=== PATIENT | male | born 1960 | race Two or more races ===

== ENCOUNTER 2020-04-29 14:30 | Outpatient (REF) | payer MEDICARE, MEDICAID, SELFPAY ==
--- NOTE | 2020-04-29 | MR_ITS ---
EXAMINATION: MR BRAIN WITHOUT CONTRAST CLINICAL INFORMATION: Parkinsonism. COMPARISON: None available. TECHNIQUE: MRI of the brain was obtained using routine sequences without contrast. FINDINGS: No focal restricted diffusion is demonstrated to suggest acute or subacute cerebral ischemia. Chronic encephalomalacia of the lateral right temporal/frontoparietal lobes, superior left temporal lobe, and anterior left frontal lobe. There is a small amount of chronic hemosiderin staining along the right central sulcus. No evidence of acute hemorrhagic products on heme-sensitive imaging. Findings are superimposed on scattered periventricular and deep white matter T2 FLAIR hyperintensities consistent with mild underlying microangiopathy. Ex vacuo dilatation of the right lateral ventricle with rightward midline shift (0.8 cm). Otherwise, proportional prominence of the ventricles and sulcal spaces without evidence of obstructive hydrocephalus. No demonstrated extra-axial collection. The sella turcica is mildly expanded and partially empty. Small lacunar infarcts within the bilateral cerebellar hemispheres. The cerebellar tonsils are normally positioned. Normal arterial and venous vascular flow voids are present. Normal, homogeneous marrow signal. Moderate mucosal thickening of the paranasal sinuses. No signal abnormalities within the mastoids. MR/MR head/brain wo con IMPRESSION: 1. No demonstrated acute intracranial abnormalities. 2. Chronic encephalomalacia of the lateral right temporal/frontoparietal lobes, superior left temporal lobe, and anterior left frontal lobe. This pattern is nonspecific but suggestive of prior traumatic injury. 3. Mild underlying microangiopathy and generalized cerebral volume loss.
--- NOTE | 2020-04-29 14:57 | XR_ITS ---
EXAMINATION: ORBITS, CHEST AND KUB CLINICAL INFORMATION: Pre MRI clearance COMPARISON: None TECHNIQUE: 2 views skull, 1 view chest PA and KUB. FINDINGS: Skull: There is no radiopaque foreign body visualized in the orbits. The paranasal sinuses are well-aerated and clear. No calvarial abnormality seen. CHEST: The lungs are well-expanded and clear of acute process. Heart size and pulmonary vascularity is normal. There is moderate spondylosis dorsal spine. No lytic process. No radiopaque foreign body seen KUB: Scattered stool and gas seen throughout the colon. No radiopaque foreign body seen.. There is no radiopaque calculi. No gross bony abnormality seen. XR/XR pre mri screening IMPRESSION: No radiopaque foreign body or metallic substance seen in the skull, chest or abdomen.
== END 2020-04-29 14:31 | disposition home or self-care (01) ==
LOC: HO.MRI 14:30
PROVIDERS: Visit Provider Psychiatry & Neurology Neurology
DX: G20 Parkinson's disease (principal)
CPT/HCPCS: 70551

== ENCOUNTER 2022-09-22 11:57 | Outpatient (REF) | payer MEDICARE, MEDICAID, SELFPAY ==
[2022-09-22 12:10] LABS: MANUAL DIFF FLAG NO
[2022-09-22 12:18] LABS: Basophils Absolute Auto 0.1 X10*3/uL (0.0-0.2); Basophils Percent Auto 0.9 % (0-2); Eosinophils Absolute Auto 0.4 X10*3/uL (0.0-0.4); Eosinophils Percent Auto 4.4 % (0-4); Hematocrit 38.9 % (42.0-52.0); Hemoglobin 12.3 g/dl (14.0-18.0); Imm Gran Abs Auto 0.31 X10*3/uL (0.00-0.03); Imm Gran Pct Auto 3.3 % (0.0-0.4); Lymphocytes Absolute Auto 2.1 X10*3/uL (1.2-4.9); Lymphocytes Percent Auto 22.9 % (20-40); Mean Corpuscular HGB Conc 31.6 g/dl (31.0-36.0); Mean Corpuscular Hemoglobin 24.9 pg (27.0-33.0); Mean Corpuscular Volume 78.7 fL (80.0-98.0); Monocytes Absolute Auto 0.8 X10*3/uL (0.1-1.2); Neutrophils Absolute Auto 5.6 x10*3/uL (2.0-8.3); Neutrophils Percent Auto 59.5 % (45-73); Platelet Count 369 X10*3/uL (160-400); Red Blood Count 4.94 X10*6/uL (4.60-5.80); Red Cell Distribution Width 15.3 % (11.0-16.0); White Blood Count 9.3 X10*3/uL (4.8-10.8)
[2022-09-22 12:37] LABS: Estimated Average Glucose 148 mg/dL; Hemoglobin A1c % 6.8 %
[2022-09-22 12:38] LABS: Appearance Urine Clear; Color Urine Yellow; Glucose Urine UA Negative (Negative); Leukocyte Esterase Urine Negative (Negative); Nitrite Urine Negative (Negative); PH 7.5 (5.0-9.0); Urine Blood Negative (Negative); Urine Ketones Negative (Negative); Urine Protein Trace mg/dL (Neg-Trace)
[2022-09-22 13:20] LABS: Creatinine Urine 104.33 mg/dL; Microalbum/Creatinine Ratio Ur 49.8 ug/mg cr
[2022-09-22 13:28] LABS: Alanine Aminotransferase 7 U/L (0-40); Albumin Level 4.2 g/dL (3.5-5.0); Alkaline Phosphatase 107 U/L (39-117); Anion Gap 12 (12-20); Aspartate Amino Transferase 21 U/L (5-37); Bilirubin Total 0.4 mg/dL (0.0-1.0); Blood Urea Nitrogen 16 mg/dL (9-16); Calcium 9.9 mg/dL (8.4-10.2); Carbon Dioxide 28 mmol/L (22-29); Chloride 103 mmol/L (96-108); Cholesterol 132 mg/dL; Estimated Glomerular Filt Rate > 60; Glucose Fasting 103 mg/dL (60-99); HDL Cholesterol 48 mg/dL; LDL Cholesterol Calculated 65 mg/dl; Potassium 4.8 mmol/L (3.3-5.1); Sodium 138 mmol/L (135-145); Total Protein 7.9 g/dL (6.5-8.0); Triglycerides 98 mg/dL
[2022-09-22 13:50] LABS: Folate 8.7 ng/mL (> or = 4.0); TSH reflex Free T4 1.81 uIU/mL (0.32-4.0); Vitamin B12 229 pg/mL (200-900); Vitamin D 25-OH Total 34.1 ng/mL (>30)
== END 2022-09-22 11:58 | disposition home or self-care (01) ==
LOC: HO.LAB 11:57
PROVIDERS: PCP Internal Medicine; Visit Provider Internal Medicine
DX: E55.9 Vitamin D deficiency, unspecified (principal); E11.9 Type 2 diabetes mellitus without complications; I10 Essential (primary) hypertension; R30.0 Dysuria; E53.8 Deficiency of other specified B group vitamins; E78.00 Pure hypercholesterolemia, unspecified
CPT/HCPCS: 36415; 80053; 80061; 81003; 82043; 82306; 82607; 82746; 83036; 84443; 85025

== ENCOUNTER 2023-02-14 10:00 | Outpatient (AMB) | payer MEDICARE, MEDICAID, SELFPAY ==
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
[2023-02-14 10:14] VITALS: BP 128/84; PULSE 76; O2SAT 98; BMI 31.5
== END 2023-02-14 10:51 | disposition home or self-care (01) ==
PROVIDERS: PCP Internal Medicine; Visit Provider Internal Medicine
DX: I10 Essential (primary) hypertension (principal); E11.9 Type 2 diabetes mellitus without complications; F25.9 Schizoaffective disorder, unspecified; F10.20 Alcohol dependence, uncomplicated; F17.210 Nicotine dependence, cigarettes, uncomplicated; E78.00 Pure hypercholesterolemia, unspecified; R25.1 Tremor, unspecified; B19.20 Unspecified viral hepatitis C without hepatic coma; K29.70 Gastritis, unspecified, without bleeding; E66.9 Obesity, unspecified; J30.9 Allergic rhinitis, unspecified; R41.89 Other symptoms and signs involving cognitive functions and awareness
CPT/HCPCS: 99214

== ENCOUNTER 2023-03-01 13:39 | Outpatient (AMB) | payer MEDICARE, MEDICAID, SELFPAY ==
[2023-03-01 13:40] VITALS: BP 128/70; PULSE 85; O2SAT 98; BMI 30.7
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
== END 2023-03-01 14:31 | disposition home or self-care (01) ==
PROVIDERS: PCP Internal Medicine; Visit Provider Internal Medicine
DX: E11.9 Type 2 diabetes mellitus without complications (principal)
CPT/HCPCS: 83036; 99213

== ENCOUNTER 2023-06-14 11:48 | Outpatient (REF) | payer MEDICARE, MEDICAID, SELFPAY ==
[2023-06-14 12:08] LABS: MANUAL DIFF FLAG NO
[2023-06-14 12:57] LABS: Basophils Absolute Auto 0.1 X10*3/uL (0.0-0.2); Basophils Percent Auto 0.9 % (0-2); Eosinophils Absolute Auto 0.2 X10*3/uL (0.0-0.4); Eosinophils Percent Auto 2.9 % (0-4); Hematocrit 38.4 % (42.0-52.0); Imm Gran Abs Auto 0.09 X10*3/uL (0.00-0.03); Imm Gran Pct Auto 1.1 % (0.0-0.4); Lymphocytes Absolute Auto 1.7 X10*3/uL (1.2-4.9); Mean Corpuscular HGB Conc 31.3 g/dl (31.0-36.0); Mean Corpuscular Hemoglobin 24.4 pg (27.0-33.0); Mean Platelet Volume 11.6 fL (9.4-12.4); Monocytes Absolute Auto 0.8 X10*3/uL (0.1-1.2); Monocytes Percent Auto 9.8 % (2-11); Neutrophils Percent Auto 63.3 % (45-73); Platelet Count 347 X10*3/uL (160-400); Red Blood Count 4.92 X10*6/uL (4.60-5.80); Red Cell Distribution Width 15.6 % (11.0-16.0); White Blood Count 7.9 X10*3/uL (4.8-10.8)
[2023-06-14 13:04] LABS: Appearance Urine Clear; Color Urine Yellow; Glucose Urine UA Negative (Negative); Leukocyte Esterase Urine Negative (Negative); Nitrite Urine Negative (Negative); Urine Blood Negative (Negative); Urine Ketones Negative (Negative); Urine Protein Negative (Neg-Trace)
[2023-06-14 13:05] LABS: Estimated Average Glucose 148 mg/dL; Hemoglobin A1c % 6.8 % (<6.0)
[2023-06-14 13:37] LABS: Creatinine Urine 59.15 mg/dL; Microalbum/Creatinine Ratio Ur 64.2 ug/mg cr (<30)
[2023-06-14 13:49] LABS: Alanine Aminotransferase 6 U/L (0-40); Albumin Level 4.1 g/dL (3.5-5.0); Alkaline Phosphatase 81 U/L (39-117); Anion Gap 11 (12-20); Aspartate Amino Transferase 18 U/L (5-37); Bilirubin Total 0.3 mg/dL (0.0-1.0); Blood Urea Nitrogen 10 mg/dL (9-16); Calcium 9.8 mg/dL (8.4-10.2); Carbon Dioxide 29 mmol/L (22-29); Chloride 102 mmol/L (96-108); Cholesterol 118 mg/dL (<200); Estimated Glomerular Filt Rate > 60; Glucose Fasting 104 mg/dL (60-99); HDL Cholesterol 46 mg/dL (>40); LDL Cholesterol Calculated 53 mg/dL (<100); Potassium 4.1 mmol/L (3.3-5.1); Sodium 138 mmol/L (135-145); Total Protein 7.9 g/dL (6.5-8.0); Triglycerides 99 mg/dL (<150)
[2023-06-14 13:56] LABS: TSH reflex Free T4 1.52 uIU/mL (0.32-4.0); Vitamin D 25-OH Total 32.2 ng/mL (>30)
[2023-06-16 13:59] LABS: HCV Log PCR <1.18 NOT DETECTED Log IU/mL (NOT DETECTED); HepC Viral Load <15 NOT DETECTED IU/mL (NOT DETECTED)
== END 2023-06-14 11:49 | disposition home or self-care (01) ==
LOC: HO.LAB 11:48
PROVIDERS: PCP Internal Medicine; Visit Provider Internal Medicine
DX: I10 Essential (primary) hypertension (principal); R30.0 Dysuria; E78.00 Pure hypercholesterolemia, unspecified; B19.20 Unspecified viral hepatitis C without hepatic coma; E55.9 Vitamin D deficiency, unspecified; E11.9 Type 2 diabetes mellitus without complications
CPT/HCPCS: 36415; 80053; 80061; 81003; 82043; 82306; 82570; 83036; 84443; 85025; 87522

== ENCOUNTER 2023-06-16 10:51 | Outpatient (AMB) | payer MEDICARE, MEDICAID, SELFPAY ==
[2023-06-16 10:54] VITALS: BP 132/84; PULSE 87; O2SAT 98; BMI 32.3
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
== END 2023-06-16 11:34 | disposition home or self-care (01) ==
PROVIDERS: PCP Internal Medicine; Visit Provider Internal Medicine
DX: E11.9 Type 2 diabetes mellitus without complications (principal); F25.9 Schizoaffective disorder, unspecified; F10.20 Alcohol dependence, uncomplicated; E78.00 Pure hypercholesterolemia, unspecified; I10 Essential (primary) hypertension; R25.1 Tremor, unspecified; B19.20 Unspecified viral hepatitis C without hepatic coma; K29.70 Gastritis, unspecified, without bleeding; J30.9 Allergic rhinitis, unspecified; R41.89 Other symptoms and signs involving cognitive functions and awareness; G47.00 Insomnia, unspecified; Z87.891 Personal history of nicotine dependence
CPT/HCPCS: 99214

== ENCOUNTER 2023-09-27 11:20 | Outpatient (AMB) | payer MEDICARE, MEDICAID, SELFPAY ==
[2023-09-27 11:29] VITALS: BP 138/76; PULSE 102; O2SAT 97; BMI 31.1
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
== END 2023-09-27 11:56 | disposition home or self-care (01) ==
PROVIDERS: PCP Internal Medicine; Visit Provider Internal Medicine
DX: E11.9 Type 2 diabetes mellitus without complications (principal)
CPT/HCPCS: 83036; 99214

== ENCOUNTER → 2024-01-17 23:59 | Outpatient (BNV) | payer MEDICARE, MEDICAID, SELFPAY | PROVIDERS: PCP Internal Medicine; Visit Provider Internal Medicine | DX: E11.9 Type 2 diabetes mellitus without complications (principal); F25.0 Schizoaffective disorder, bipolar type; R25.1 Tremor, unspecified | CPT/HCPCS: G0179 ==

== ENCOUNTER 2024-02-07 10:45 | Outpatient (REF) | payer MEDICARE, MEDICAID, SELFPAY ==
[2024-02-07 13:08] LABS: MANUAL DIFF FLAG NO
[2024-02-07 13:27] LABS: Basophils Absolute Auto 0.1 X10*3/uL (0.0-0.2); Basophils Percent Auto 0.9 % (0-2); Eosinophils Absolute Auto 0.2 X10*3/uL (0.0-0.4); Eosinophils Percent Auto 2.6 % (0-4); Hematocrit 36.7 % (42.0-52.0); Hemoglobin 11.5 g/dl (14.0-18.0); Imm Gran Abs Auto 0.04 X10*3/uL (0.00-0.03); Imm Gran Pct Auto 0.7 % (0.0-0.4); Lymphocytes Absolute Auto 1.3 X10*3/uL (1.2-4.9); Lymphocytes Percent Auto 23.1 % (20-40); Mean Corpuscular HGB Conc 31.3 g/dl (31.0-36.0); Mean Corpuscular Hemoglobin 23.7 pg (27.0-33.0); Mean Corpuscular Volume 75.5 fL (80.0-98.0); Mean Platelet Volume 11.2 fL (9.4-12.4); Monocytes Absolute Auto 0.5 X10*3/uL (0.1-1.2); Monocytes Percent Auto 9.2 % (2-11); Neutrophils Absolute Auto 3.7 x10*3/uL (2.0-8.3); Neutrophils Percent Auto 63.5 % (45-73); Platelet Count 270 X10*3/uL (160-400); Red Blood Count 4.86 X10*6/uL (4.60-5.80); Red Cell Distribution Width 15.9 % (11.0-16.0); White Blood Count 5.8 X10*3/uL (4.8-10.8)
[2024-02-07 13:59] LABS: Estimated Average Glucose 140 mg/dL; Hemoglobin A1c % 6.5 % (<6.0)
[2024-02-07 14:15] LABS: Alanine Aminotransferase 7 U/L (0-40); Albumin Level 4.1 g/dL (3.5-5.0); Alkaline Phosphatase 67 U/L (39-117); Anion Gap 13 (12-20); Aspartate Amino Transferase 18 U/L (5-37); Bilirubin Total 0.4 mg/dL (0.0-1.0); Blood Urea Nitrogen 11 mg/dL (9-16); Calcium 9.7 mg/dL (8.4-10.2); Carbon Dioxide 22 mmol/L (22-29); Chloride 106 mmol/L (96-108); Cholesterol 131 mg/dL (<200); Estimated Glomerular Filt Rate > 60; Glucose Fasting 109 mg/dL (60-99); HDL Cholesterol 52 mg/dL (>40); LDL Cholesterol Calculated 67 mg/dL (<100); Potassium 4.4 mmol/L (3.3-5.1); Sodium 137 mmol/L (135-145); TSH reflex Free T4 1.62 uIU/mL (0.32-4.0); Total Protein 7.9 g/dL (6.5-8.0); Triglycerides 62 mg/dL (<150); Vitamin D 25-OH Total 36.5 ng/mL (>30)
== END 2024-02-07 10:46 | disposition home or self-care (01) ==
LOC: HO.10HDL 10:45
PROVIDERS: Visit Provider Internal Medicine
DX: E78.00 Pure hypercholesterolemia, unspecified (principal); E11.9 Type 2 diabetes mellitus without complications; E55.9 Vitamin D deficiency, unspecified; D64.9 Anemia, unspecified
CPT/HCPCS: 36415; 80053; 80061; 82306; 83036; 84443; 85025

== ENCOUNTER 2024-02-12 10:52 | Outpatient (AMB) | payer MEDICARE, MEDICAID, SELFPAY ==
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
[2024-02-12 10:57] VITALS: BP 138/86; PULSE 105; O2SAT 97; BMI 30.9
== END 2024-02-12 11:47 | disposition home or self-care (01) ==
PROVIDERS: PCP Internal Medicine; Visit Provider Internal Medicine
DX: E11.9 Type 2 diabetes mellitus without complications (principal); G20.A1 Parkinson's disease without dyskinesia, without mention of fluctuations; F10.20 Alcohol dependence, uncomplicated; F25.9 Schizoaffective disorder, unspecified; E78.00 Pure hypercholesterolemia, unspecified; I10 Essential (primary) hypertension; B19.20 Unspecified viral hepatitis C without hepatic coma; K29.70 Gastritis, unspecified, without bleeding; J30.9 Allergic rhinitis, unspecified; R41.89 Other symptoms and signs involving cognitive functions and awareness; R40.0 Somnolence; G47.00 Insomnia, unspecified

== ENCOUNTER → 2024-02-12 10:52 | Outpatient (BNVA) | payer MEDICARE, MEDICAID, SELFPAY | PROVIDERS: PCP Internal Medicine; Visit Provider Internal Medicine | DX: E11.9 Type 2 diabetes mellitus without complications (principal); E78.00 Pure hypercholesterolemia, unspecified; I10 Essential (primary) hypertension; B19.20 Unspecified viral hepatitis C without hepatic coma; K29.70 Gastritis, unspecified, without bleeding; J30.9 Allergic rhinitis, unspecified; G20.A1 Parkinson's disease without dyskinesia, without mention of fluctuations; R41.89 Other symptoms and signs involving cognitive functions and awareness; G47.00 Insomnia, unspecified; F25.9 Schizoaffective disorder, unspecified; E66.9 Obesity, unspecified; F10.20 Alcohol dependence, uncomplicated; F17.200 Nicotine dependence, unspecified, uncomplicated; Z71.6 Tobacco abuse counseling; Z79.899 Other long term (current) drug therapy | CPT/HCPCS: 99212 ==

== ENCOUNTER 2024-06-13 10:34 | Outpatient (AMB) | payer MEDICARE, MEDICAID, SELFPAY ==
[2024-06-13 11:11] VITALS: BP 128/76; PULSE 80; O2SAT 97; BMI 29.2
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
== END 2024-06-13 11:50 | disposition home or self-care (01) ==
PROVIDERS: PCP Internal Medicine; Visit Provider Internal Medicine
DX: E11.9 Type 2 diabetes mellitus without complications (principal); E78.00 Pure hypercholesterolemia, unspecified; I10 Essential (primary) hypertension; G20.A1 Parkinson's disease without dyskinesia, without mention of fluctuations; B19.20 Unspecified viral hepatitis C without hepatic coma; K29.70 Gastritis, unspecified, without bleeding; J30.9 Allergic rhinitis, unspecified; R41.89 Other symptoms and signs involving cognitive functions and awareness; G47.00 Insomnia, unspecified; F25.9 Schizoaffective disorder, unspecified; F10.20 Alcohol dependence, uncomplicated; F17.200 Nicotine dependence, unspecified, uncomplicated; E66.9 Obesity, unspecified; Z13.9 Encounter for screening, unspecified

== ENCOUNTER → 2024-06-13 10:34 | Outpatient (BNVA) | payer MEDICARE, MEDICAID, SELFPAY | PROVIDERS: PCP Internal Medicine; Visit Provider Internal Medicine | DX: E11.9 Type 2 diabetes mellitus without complications (principal); E78.00 Pure hypercholesterolemia, unspecified; I10 Essential (primary) hypertension; G20.A1 Parkinson's disease without dyskinesia, without mention of fluctuations; B19.20 Unspecified viral hepatitis C without hepatic coma; K29.70 Gastritis, unspecified, without bleeding; J30.9 Allergic rhinitis, unspecified; R41.9 Unspecified symptoms and signs involving cognitive functions and awareness; G47.00 Insomnia, unspecified; F25.9 Schizoaffective disorder, unspecified; F10.20 Alcohol dependence, uncomplicated; E66.9 Obesity, unspecified; F17.200 Nicotine dependence, unspecified, uncomplicated | CPT/HCPCS: 83036; 96127; 99212 ==

== ENCOUNTER 2025-01-16 12:45 | Outpatient (AMB) | payer MEDICARE, MEDICAID, SELFPAY ==
--- OUTSIDE RECORDS SUMMARY | 2025-01-15 23:59 | XMS_ITS | Continuity of Care Document ---
Author Organization [facility] Address [address] [facility], [address], [address] [place] [id number]- Care Team Providers Care Workforce Planner Name Role Phone Seb BOWERS, Jemal Primary Care Physician [id number] Date(s): 11/07/24 - 01/15/25 [facility] [address], [address] [place] [id number] Attending Physician: Douglas Otto MD Admitting Physician: Douglas Otto MD Encounter Type: Pre-OutPatient One Time Allergies, Adverse Reactions, Alerts No Known Allergies Medications amLODIPine 10 mg oral tablet 10 mg, By Mouth, Daily, Refills 0, Maintenance, 07/31/24 3:40:00 PM EDT, Partial fill upon patient request if the prescription is for a schedule II opioid drug. Start Date: 07/31/24 Status: Ordered Medication Dispense Status: Completed Total Allowed Fills: 1 Fills Dispensed: 0 Banophen 50 mg oral capsule 1 capsule = 50 mg, By Mouth, Daily, PRN allergies Start Date: 07/26/24 Status: Ordered Medication Dispense Status: Completed Total Allowed Fills: 1 Fills Dispensed: 0 benztropine 1 mg oral tablet 2 mg, By Mouth, 2 times a day, Refills 0, Maintenance, 07/31/24 3:39:00 PM EDT, Partial fill upon patient request if the prescription is for a schedule II opioid drug. Start Date: 07/31/24 Status: Ordered Medication Dispense Status: Completed Total Allowed Fills: 1 Fills Dispensed: 0 Calcium Carb 600mg Calcium Carb 600mg, 1, tablet, By Mouth, 2 times a day Start Date: 07/26/24 Status: Ordered Medication Dispense Status: Completed Total Allowed Fills: 1 Fills Dispensed: 0 carbidopa-levodopa 25 mg-100 mg oral tablet 1 tablet, By Mouth, 3 times a day, # 270 tablet, 0 Refills, Maintenance, 07/26/24 1:55:00 AM EST, Tablet, Partial fill upon patient request if the prescription is for a schedule II opioid drug. Start Date: 07/26/24 Status: Ordered Medication Dispense Status: Completed Quantity: 270.0 Unit: tablet Total Allowed Fills: 1 Fills Dispensed: 0 D3 50 mcg (2000 intl units) oral capsule 1 capsule = 50 mcg, By Mouth, Daily Start Date: 07/26/24 Status: Ordered Medication Dispense Status: Completed Total Allowed Fills: 1 Fills Dispensed: 0 famotidine 40 mg oral tablet 1 tablet = 40 mg, By Mouth, 2 times a day, # 60 tablet, 0 Refills, Maintenance, 07/26/24 1:55:00 AM EST, Tablet, Partial fill upon patient request if the prescription is for a schedule II opioid drug. Start Date: 07/26/24 Status: Ordered Medication Dispense Status: Completed Quantity: 60.0 Unit: tablet Total Allowed Fills: 1 Fills Dispensed: 0 losartan 50 mg oral tablet 50 mg, By Mouth, Daily, Refills 0, Maintenance, 07/31/24 3:40:00 PM EDT, Partial fill upon patient request if the prescription is for a schedule II opioid drug. Start Date: 07/31/24 Status: Ordered Medication Dispense Status: Completed Total Allowed Fills: 1 Fills Dispensed: 0 metFORMIN 1000 mg oral tablet 1 tablet = 1,000 mg, By Mouth, Daily, # 180 tablet, 0 Refills, Maintenance, 07/26/24 1:56:00 AM EST, Tablet, Partial fill upon patient request if the prescription is for a schedule II opioid drug. Start Date: 07/26/24 Status: Ordered Medication Dispense Status: Completed Quantity: 180.0 Unit: tablet Total Allowed Fills: 1 Fills Dispensed: 0 omeprazole 20 mg oral enteric coated capsule 1 capsule = 20 mg, By Mouth, Daily, # 30 capsule, 0 Refills, Maintenance, 07/26/24 1:55:00 AM EST, ECCapsule, Partial fill upon patient request if the prescription is for a schedule II opioid drug. Start Date: 07/26/24 Status: Ordered Medication Dispense Status: Completed Quantity: 30.0 Unit: capsule Total Allowed Fills: 1 Fills Dispensed: 0 pravastatin 40 mg oral tablet 1 tablet = 40 mg, By Mouth, Daily, # 30 tablet, 0 Refills, Maintenance, 07/26/24 1:55:00 AM EST, Tablet, Partial fill upon patient request if the prescription is for a schedule II opioid drug. Start Date: 07/26/24 Status: Ordered Medication Dispense Status: Completed Quantity: 30.0 Unit: tablet Total Allowed Fills: 1 Fills Dispensed: 0 propranolol 10 mg oral tablet 10 mg, 1, tablet, By Mouth, 2 times a day, # 180 tablet, Refills 0, Maintenance, 07/26/24 1:55:00 AM EST, Partial fill upon patient request if the prescription is for a schedule II opioid drug. Start Date: 07/26/24 Status: Ordered Medication Dispense Status: Completed Quantity: 180.0 Unit: tablet Total Allowed Fills: 1 Fills Dispensed: 0 propranolol 20 mg oral tablet 20 mg, 1, tablet, By Mouth, 2 times a day, # 180 tablet, Refills 0, Tot. Refills 0, Maintenance, 11/11/24 3:17:00 PM EDT, Route to Pharmacy Electronically, [facility], Partial fill upon patient request if the prescription is for a schedule II opioid drug., 167, cm, 08/01/24 11:46:00 EDT, Height, 74.3, kg, 07/26/24 11:25:00 EST, Dry Weight Start Date: 11/11/24 Status: Ordered Medication Dispense Status: Completed Quantity: 180.0 Unit: tablet Total Allowed Fills: 1 Fills Dispensed: 0 risperiDONE 0.5 mg oral tablet 1 mg, 2, tablet, By Mouth, Daily, # 60 tablet, Refills 0, Tot. Refills 0, Maintenance, 11/11/24 3:16:00 PM EDT, Route to Pharmacy Electronically, [facility], Partial fill upon patient request if the prescription is for a schedule II opioid drug., 167, cm, 08/01/24 11:46:00 EDT, Height, 74.3, kg, 07/26/24 11:25:00 EST, Dry Weight Start Date: 11/11/24 Stop Date: 12/11/24 Status: Ordered Medication Dispense Status: Completed Quantity: 60.0 Unit: tablet Total Allowed Fills: 1 Fills Dispensed: 0 risperiDONE 1 mg oral tablet 1.5 mg, By Mouth, Daily at bedtime, Refills 0, Maintenance, 07/31/24 3:40:00 PM EDT, Partial fill upon patient request if the prescription is for a schedule II opioid drug. Start Date: 07/31/24 Status: Ordered Medication Dispense Status: Completed Total Allowed Fills: 1 Fills Dispensed: 0 Vitamin C 1000 mg oral tablet 1 tablet = 1,000 mg, By Mouth, Daily Start Date: 07/26/24 Status: Ordered Medication Dispense Status: Completed Total Allowed Fills: 1 Fills Dispensed: 0 Patient Care team information Care Team Personnel Name: Sundar Scanlon RN Position: S RN Member Role: Primary Care Nurse Name: Cristian Camarena RN Position: S RN Member Role: Primary Care Nurse Name: Jemal Grigsby MD Position: S Outreach Member Role: PCP Address: [address] [place] [address] Telecom: Name: Olayinka Oconnor RN Position: S RN Member Role: Primary Care Nurse Name: Tish Ivy RN Position: S RN Member Role: Primary Care Nurse Name: Erna Wells RN Position: S RN Member Role: Primary Care Nurse Care Team Related Persons Name: JD BOWERS Name: JAKI BENITEZ Name: JENNYFER LEE Insurance Providers Guarantor name: MOISES BOWERS Health Plan Information #: 1 Payer: MEDICARE B Payer Identifier: ANEGLIQUE Member Number: [id number] Group Number: ANGELIQUE Subscriber Identifier: [id number] Relationship to Subscriber: self Coverage Type: NA Coverage Verification Date: NA Telecom: NA Address: Health Plan Information #: 2 Payer: [employer] Payer Identifier: ANGELIQUE Member Number: [id number] Group Number: NA Subscriber Identifier: [id number] Relationship to Subscriber: self Coverage Type: MEDICAID Coverage Verification Date: NA Telecom: ANGELIQUE Address: NA
--- OUTSIDE RECORDS SUMMARY | 2025-01-15 23:59 | XMS_ITS | Continuity of Care Document ---
Author Organization [facility] Address [address] [facility], [address] d Floor, [address] [place] [id number] Care Team Providers Care Marine Scientist Name Role Phone Seb BOWERS, Jemal Primary Care Physician [id number] Date(s): 12/16/24 - 01/15/25 [facility] [address], [address] [place] [id number] Attending Physician: Musa Felipe Admitting Physician: Musa Felipe Referring Physician: Musa Felipe Encounter Type: Triage Allergies, Adverse Reactions, Alerts No Known Allergies [...] 3:17:00 PM EDT, Route to Pharmacy Electronically, [facility], Partial fill upon patient request if the [...] 3:16:00 PM EDT, Route to Pharmacy Electronically, [facility], Partial fill upon patient request if the [...] Position: S Outreach Member Role: PCP Address: [address] [place] [address] Telecom: Name: Olayinka Oconnor RN Position: S [...] #: 1 Payer: MEDICARE B Payer Identifier: ANGELIQUE Member Number: [id number] Group Number: [id number] Subscriber Identifier: ANGELIQUE Relationship to Subscriber: self Coverage Type: NA Coverage Verification Date: NA Telecom: NA Address: Health Plan Information #: 2 Payer[facility] [employer] Payer Identifier: ANGELIQUE Member Number: [id number] Group Number: [id number] Subscriber Identifier: NA Relationship to Subscriber: self Coverage Type: MEDICAID Coverage Verification Date: NA Telecom: NA Address: NA
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
[2025-01-16 12:50] VITALS: BP 136/90; PULSE 81; TEMP 36.3; O2SAT 99; BMI 28.5
--- OUTSIDE RECORDS SUMMARY | 2025-01-16 13:22 | XMS_ITS | Encounter Summary ---
Author Organization [facility] Address [address] [place] [address] Care Team Providers Care Sericulturist Name Role Phone Yassine Rodriguez MD Primary Care Provider [phone] Encounter Details Date Type Department Care Team (Late st Contact Info) Description 08/22/2024 Lab Requisition [facility] - Main Lab [address] [facility] [place] [address] Jemal Grigsby MD [address] [place] [phone] Metabolic encephalopathy; Rhabdomyolysis; Unspecified convulsions (CMS/HCC V24, CMS/HCC V28) Social History Tobacco Use Types Packs/Day Years Used Date Smoking Tobacco: Never Assessed Sex and Gender Information Value Date Recorded Sex Assigned at Not on file Legal Sex Male 4:29 PM EST Gender Identity Not on file Sexual Orientation Not on file documented as of this encounter Plan of Treatment Not on file documented as of this encounter Procedures Procedure Name Priority Date/Time Associated Diagnosis Comments COMPLETE BLOOD COUNT Routine 08/23/2024 8:09 AM EDT Metabolic encephalopathy Rhabdomyolysis Unspecified convulsions (CMS/HCC) C-REACTIVE PROTEIN Routine 08/23/2024 8: 09 AM EDT Metabolic encephalopathy Rhabdomyolysis Unspecified convulsions (CMS/HCC) COMPREHENSIVE METABOLIC PANEL Routine 08/23/2024 8:09 AM EDT Metabolic encephalopathy Rhabdomyolysis Unspecified convulsions (CMS/HCC) documented in this encounter Results * C-reactive protein (08/23/2024 8:09 AM EDT) [facility] C-Reactive Protein <0.29 <=0.50 mg/dL LAB CHEMISTRY METHOD 08/23/2024 11:59 AM [facility] Blood Venous blood specimen / Unknown Venipuncture / Unknown 08/23/2024 8:09 AM EDT 08/23/2024 10:41 AM EDT us Jemal Grigsby MD LAB BLOOD ORDERABLES Final Resul t [facility] [address] [place] [address], * (ABNORMAL) Comprehensive metabolic panel (08/23/2024 8:09 AM EDT) [facility] Sodium 136 133 - 145 mmol/L LAB CHEMISTRY METHOD 08/23/2024 11:56 AM [facility] Potassium 4.3 3.5 - 5.5 mmol/L LAB CHEMISTRY METHOD 08/23/2024 11:56 AM [facility] Chloride 101 96 - 110 mmol/L LAB CHEMISTRY METHOD 08/23/2024 11:56 AM [facility] CO2 26 21 - 32 mmol/L LAB CHEMISTRY METHOD 08/23/2024 11:56 AM [facility] Anion Gap 9 3 - 11 LAB CHEMISTRY METHOD 08/23/2024 11:56 AM [facility] Glucose 112(H) 70 - 100 mg/dL LAB CHEMISTRY METHOD 08/23/2024 11:56 AM [facility] BUN 10 5 - 25 mg/dL LAB CHEMISTRY METHOD 08/23/2024 11:56 AM [facility] Creatinine 0.82 0.70 - 1.30 mg/dL LAB CHEMISTRY METHOD 08/23/2024 11:56 AM [facility] eGFR 97 >=60 mL/min/1. 73m2 LAB CHEMISTRY METHOD 08/23/2024 11:56 AM [facility] Comment:Calculation based on the Chronic Kidney Disease Epidemiology Collaboration (CKD-EPI) equation refit without adjustment for race. BUN/Creatinine Ratio 12.2 LAB CHEMISTRY METHOD 08/23/2024 11:56 AM [facility] Calcium 9.7 8.5 - 10.5 mg/dL LAB CHEMISTRY METHOD 08/23/2024 11:56 AM [facility] AST (SGOT) 14 10 - 42 unit/L LAB CHEMISTRY METHOD 08/23/2024 11:56 AM [facility] ALT (SGPT) 22 10 - 60 unit/L LAB CHEMISTRY METHOD 08/23/2024 11:56 AM [facility] Alkaline Phosphatase 96 42 - 121 unit/L LAB CHEMISTRY METHOD 08/23/2024 11:56 AM [facility] Total Protein 7.8 6.0 - 8.0 g/dL LAB CHEMISTRY METHOD 08/23/2024 11:56 AM [facility] Albumin 3.7 3.2 - 5.0 g/dL LAB CHEMISTRY METHOD 08/23/2024 11:56 AM [facility] Total Bilirubin 0.3 0.0 - 1.4 mg/dL LAB CHEMISTRY METHOD 08/23/2024 11:56 AM [facility] Blood Venous blood specimen / Unknown Venipuncture / Unknown 08/23/2024 8:09 AM EDT 08/23/2024 10:41 AM EDT us Jemal Grigsby MD LAB BLOOD ORDERABLES Final Resul t [facility] [address] [place] [address], * (ABNORMAL) Complete blood count (08/23/2024 8:09 AM EDT) [facility] WBC 6.9 4.8 - 10.8 K/mcL LAB HEMETOLOGY METHOD 08/23/2024 11:25 AM [facility] RBC 5.00 4.50 - 5.50 M/mcL LAB HEMETOLOGY METHOD 08/23/2024 11:25 AM [facility] Hemoglobin 12.8(L) 13.5 - 17.5 g/dL LAB HEMETOLOGY METHOD 08/23/2024 11:25 AM [facility] Hematocrit 40.7(L) 42.0 - 54.0 % LAB HEMETOLOGY METHOD 08/23/2024 11:25 AM [facility] MCV 82.1 79.0 - 98.0 FL LAB HEMETOLOGY METHOD 08/23/2024 11:25 AM [facility] MCH 25.8(L) 27.0 - 32.0 pcg LAB HEMETOLOGY METHOD 08/23/2024 11:25 AM [facility] MCHC 31.4(L) 32.0 - 37.0 g/dL LAB HEMETOLOGY METHOD 08/23/2024 11:25 AM [facility] RDW 15.0 11.0 - 15.0 % LAB HEMETOLOGY METHOD 08/23/2024 11:25 AM [facility] Platelets 326 130 - 400 K/mcL LAB HEMETOLOGY METHOD 08/23/2024 11:25 AM [facility] MPV 10.7 7.0 - 11.0 FL LAB HEMETOLOGY METHOD 08/23/2024 11:25 AM [facility] NRBC 0.0 <1.0 % LAB HEMETOLOGY METHOD 08/23/2024 11:25 AM [facility] NRBC Absolute 0.00 <0.10 K/mcL LAB HEMETOLOGY METHOD 08/23/2024 11:25 AM EDT [facility] Blood Venous blood specimen / Unknown Venipuncture / Unknown 08/23/2024 8:09 AM EDT 08/23/2024 10:39 AM EDT us Jemal Grigsby MD LAB BLOOD ORDERABLES Final Resul t [facility] [address] [place] [address], documented in this encounter Visit Diagnoses Diagnosis Metabolic encephalopathy Rhabdomyolysis Unspecified convulsions (CMS/HCC V24, CMS/HCC V28) documented in this encounter Care Teams Sericulturist Relationship Specialty Start Date End Date Yassine Rodriguez MD [address] [place] [address] Dr [address] [place], [place] PCP - General 02/16/24 documented as of this encounter
--- OUTSIDE RECORDS SUMMARY | 2025-01-16 13:22 | XMS_ITS | Encounter Summary ---
Author Organization [facility] Address [address] [place] [address] Care Team Providers Care Hose Seamer Name Role Phone Yassine Rodriguez MD Primary Care Provider Encounter Details Date Type Department Care Team (Late st Contact Info) Description 08/13/2024 Lab Requisition [facility] - Main Lab [address] [place] [address] Jemal Grigsby MD [address] [place] [phone] Type 2 diabetes mellitus without complications (CMS/HCC V24, CMS/HCC V28) Social History Tobacco [...] Associated Diagnosis Comments COMPLETE BLOOD COUNT Routine 08/14/2024 7:32 AM EDT Type 2 diabetes mellitus without complications C-REACTIVE PROTEIN Routine 08/14/2024 7: 32 AM EDT Type 2 diabetes mellitus without complications BASIC METABOLIC PANEL Routine 08/14/2024 7:32 AM EDT Type 2 diabetes mellitus without complications documented in this encounter Results * (ABNORMAL) C-reactive protein (08/14/2024 7:32 AM EDT) C-Reactive Protein 1.25(H) <=0.50 mg/dL LAB CHEMISTRY METHOD 08/14/2024 11:56 AM [facility] Blood Venous blood specimen / Unknown Venipuncture / Unknown 08/14/2024 7:32 AM EDT 08/14/2024 10:39 AM EDT us Jemal Grigsby MD LAB BLOOD ORDERABLES Final Resul t [facility] [address] [place] [address], [place] [phone] * Basic metabolic panel (08/14/2024 7:32 AM EDT) [facility] Sodium 134 133 - 145 mmol/L LAB CHEMISTRY METHOD 08/14/2024 11:56 AM [facility] Potassium 4.4 3.5 - 5.5 mmol/L LAB CHEMISTRY METHOD 08/14/2024 11:56 AM [facility] Chloride 102 96 - 110 mmol/L LAB CHEMISTRY METHOD 08/14/2024 11:56 AM [facility] CO2 28 21 - 32 mmol/L LAB CHEMISTRY METHOD 08/14/2024 11:56 AM [facility] Anion Gap 4 3 - 11 LAB CHEMISTRY METHOD 08/14/2024 11:56 AM [facility] Glucose 79 70 - 100 mg/dL LAB CHEMISTRY METHOD 08/14/2024 11:56 AM [facility] BUN 11 5 - 25 mg/dL LAB CHEMISTRY METHOD 08/14/2024 11:56 AM [facility] Creatinine 0.90 0.70 - 1.30 mg/dL LAB CHEMISTRY METHOD 08/14/2024 11:56 AM [facility] eGFR 95 >=60 mL/min/1. 73m2 LAB CHEMISTRY METHOD 08/14/2024 11:56 AM EDT [facility] Comment:Calculation based on the Chronic Kidney Disease Epidemiology Collaboration (CKD-EPI) equation refit without adjustment for race. BUN/Creatinine Ratio 12.2 LAB CHEMISTRY METHOD 08/14/2024 11:56 AM EDT [facility] Calcium 9.3 8.5 - 10.5 mg/dL LAB CHEMISTRY METHOD 08/14/2024 11:56 AM T [facility] Blood Venous blood specimen / Unknown Venipuncture / Unknown 08/14/2024 7:32 AM EDT 08/14/2024 10:39 AM EDT us Jemal Grigsby MD LAB BLOOD ORDERABLES Final Resul t [facility] [address] [place] [address], * (ABNORMAL) Complete blood count (08/14/2024 7:32 AM EDT) WBC 6.1 4.8 - 10.8 K/mcL LAB HEMETOLOGY METHOD 08/14/2024 10:58 AM [facility] RBC 4.70 4.50 - 5.50 M/mcL LAB HEMETOLOGY METHOD 08/14/2024 10:58 AM [facility] Hemoglobin 12.1(L) 13.5 - 17.5 g/dL LAB HEMETOLOGY METHOD 08/14/2024 10:58 AM T [facility] Hematocrit 38.9(L) 42.0 - 54.0 % LAB HEMETOLOGY METHOD 08/14/2024 10:58 AM T [facility] MCV 83.7 79.0 - 98.0 FL LAB HEMETOLOGY METHOD 08/14/2024 10:58 AM [facility] MCH 26.0(L) 27.0 - 32.0 pcg LAB HEMETOLOGY METHOD 08/14/2024 10:58 AM EDT [facility] MCHC 31.1(L) 32.0 - 37.0 g/dL LAB HEMETOLOGY METHOD 08/14/2024 10:58 AM EDT [facility] RDW 15.4(H) 11.0 - 15.0 % LAB HEMETOLOGY METHOD 08/14/2024 10:58 AM EDT [facility] Platelets 399 130 - 400 K/mcL LAB HEMETOLOGY METHOD 08/14/2024 10:58 AM EDT [facility] MPV 11.5(H) 7.0 - 11.0 FL LAB HEMETOLOGY METHOD 08/14/2024 10:58 AM EDT [facility] NRBC 0.0 <1.0 % LAB HEMETOLOGY METHOD 08/14/2024 10:58 AM EDT [facility] NRBC Absolute 0.00 <0.10 K/mcL LAB HEMETOLOGY METHOD 08/14/2024 10:58 AM EDT [facility] Blood Venous blood specimen / Unknown Venipuncture / Unknown 08/14/2024 7:32 AM EDT 08/14/2024 10:39 AM EDT us Jemal Grigsby MD LAB BLOOD ORDERABLES Final Resul t [facility] [address] [place] [address], documented in this encounter Visit Diagnoses Diagnosis Type 2 diabetes mellitus without complications (CMS/HCC V24, CMS/HCC V28) documented in this encounter Care Teams Hose Seamer Relationship Specialty Start Date End Date Yassine Rodriguez MD [address] [place] [address] [address] [place] PCP - General 02/16/24 documented as of this encounter
--- OUTSIDE RECORDS SUMMARY | 2025-01-16 13:22 | XMS_ITS | Encounter Summary ---
Author Organization [facility] Address [address] [place] [address] Care Team Providers Care Academic Guidance Specialist Name Role Phone Yassine Rodriguez MD Primary Care Provider Encounter Details Date Type Department Care Team (Late st Contact Info) Description 09/19/2024 Lab Requisition [facility] - Main Lab [address] [facility] [place] [address] Jemal Grigsby MD [address] [place] [phone] Metabolic encephalopathy; Rhabdomyolysis; Unspecified convulsions (CMS/HCC V24, CMS/HCC V28); Chronic viral hepatitis C (CMS/HCC V24, CMS/HCC V28); Dysarthria and anarthria; Type 2 diabetes mellitus without complications (CMS/HCC [...] Associated Diagnosis Comments COMPLETE BLOOD COUNT Routine 09/20/2024 7:32 AM EDT Metabolic encephalopathy Rhabdomyolysis Unspecified convulsions (CMS/HCC V24, CMS/HCC V28) Chronic viral hepatitis C (CMS/HCC V24, CMS/HCC V28) Dysarthria and anarthria Type 2 diabetes mellitus without complications (CMS/HCC V24, CMS/HCC V28) C-REACTIVE PROTEIN Routine 09/20/2024 7: 32 AM EDT Metabolic encephalopathy Rhabdomyolysis Unspecified convulsions (CMS/HCC V24, CMS/HCC V28) Chronic viral hepatitis C (CMS/HCC V24, CMS/HCC V28) Dysarthria and anarthria Type 2 diabetes mellitus without complications (CMS/HCC V24, CMS/HCC V28) CREATINE KINASE Routine 09/20/2024 7:32 AM EDT Metabolic encephalopathy Rhabdomyolysis Unspecified convulsions (CMS/HCC V24, CMS/HCC V28) Chronic viral hepatitis C (CMS/HCC V24, CMS/HCC V28) Dysarthria and anarthria Type 2 diabetes mellitus without complications (CMS/HCC V24, CMS/HCC V28) COMPREHENSIVE METABOLIC PANEL Routine 09/20/2024 7:32 AM EDT Metabolic encephalopathy Rhabdomyolysis Unspecified convulsions (CMS/HCC V24, CMS/HCC V28) Chronic viral hepatitis C (CMS/HCC V24, CMS/HCC V28) Dysarthria and anarthria Type 2 diabetes mellitus without complications (CMS/HCC V24, CMS/HCC V28) documented in this encounter Results * Creatine kinase (09/20/2024 7:32 AM EDT) Total CK 188 22 - 269 unit/L LAB CHEMISTRY METHOD 09/20/2024 2:00 PM EDT [facility] Comment:Results verified by repeat testing Blood Venous blood specimen / Unknown 09/20/2024 7:32 AM EDT 09/20/2024 11:10 AM EDT us Jemal Grigsby MD LAB BLOOD ORDERABLES Final Resul t [facility] [address] [place] [address], [place] [phone] * (ABNORMAL) C-reactive protein (09/20/2024 7:32 AM EDT) C-Reactive Protein 14.80(H) <=0.50 mg/dL LAB CHEMISTRY METHOD 09/20/2024 2:00 PM EDT [facility] Comment:Results verified by repeat testing Blood Venous blood specimen / Unknown 09/20/2024 7:32 AM EDT 09/20/2024 11:10 AM EDT us Jemal Grigsby MD LAB BLOOD ORDERABLES Final Resul t [facility] [address] [place] [address], [place] [phone] * (ABNORMAL) Comprehensive metabolic panel (09/20/2024 7:32 AM EDT) [facility] Sodium 131(L) 133 - 145 mmol/L LAB CHEMISTRY METHOD 09/20/2024 1:24 PM [facility] Potassium 4.1 3.5 - 5.5 mmol/L LAB CHEMISTRY METHOD 09/20/2024 1:24 PM [facility] Chloride 96 96 - 110 mmol/L LAB CHEMISTRY METHOD 09/20/2024 1:24 PM [facility] CO2 23 21 - 32 mmol/L LAB CHEMISTRY METHOD 09/20/2024 1:24 PM [facility] Anion Gap 12(H) 3 - 11 LAB CHEMISTRY METHOD 09/20/2024 1:24 PM [facility] Glucose 86 70 - 100 mg/dL LAB CHEMISTRY METHOD 09/20/2024 1:24 PM [facility] BUN 13 5 - 25 mg/dL LAB CHEMISTRY METHOD 09/20/2024 1:24 PM [facility] Creatinine 0.89 0.70 - 1.30 mg/dL LAB CHEMISTRY METHOD 09/20/2024 1:24 PM [facility] eGFR 95 >=60 mL/min/1. 73m2 LAB CHEMISTRY METHOD 09/20/2024 1:24 PM EDT [facility] Comment:Calculation based on the Chronic Kidney Disease Epidemiology Collaboration (CKD-EPI) equation refit without adjustment for race. BUN/Creatinine Ratio 14.6 LAB CHEMISTRY METHOD 09/20/2024 1:24 PM EDT [facility] Calcium 9.0 8.5 - 10.5 mg/dL LAB CHEMISTRY METHOD 09/20/2024 1:24 PM [facility] AST (SGOT) 15 10 - 42 unit/L LAB CHEMISTRY METHOD 09/20/2024 1:24 PM [facility] ALT (SGPT) 12 10 - 60 unit/L LAB CHEMISTRY METHOD 09/20/2024 1:24 PM [facility] Alkaline Phosphatase 71 42 - 121 unit/L LAB CHEMISTRY METHOD 09/20/2024 1:24 PM [facility] Total Protein 7.4 6.0 - 8.0 g/dL LAB CHEMISTRY METHOD 09/20/2024 1:24 PM [facility] Albumin 3.5 3.2 - 5.0 g/dL LAB CHEMISTRY METHOD 09/20/2024 1:24 PM [facility] Total Bilirubin 0.6 0.0 - 1.4 mg/dL LAB CHEMISTRY METHOD 09/20/2024 1:24 PM [facility] Blood Venous blood specimen / Unknown 09/20/2024 7:32 AM EDT 09/20/2024 11:10 AM EDT us Jemal Grigsby MD LAB BLOOD ORDERABLES Final Resul t [facility] [address] [place] [address], [place] [phone] * (ABNORMAL) Complete blood count (09/20/2024 7:32 AM EDT) WBC 11.5(H) 4.8 - 10.8 K/[facility] LAB HEMETOLOGY METHOD 09/20/2024 11:31 AM [facility] RBC 4.70 4.50 - 5.50 M/[facility] LAB HEMETOLOGY METHOD 09/20/2024 11:31 AM [facility] Hemoglobin 12.1(L) 13.5 - 17.5 g/dL LAB HEMETOLOGY METHOD 09/20/2024 11:31 AM [facility] Hematocrit 38.1(L) 42.0 - 54.0 % LAB HEMETOLOGY METHOD 09/20/2024 11:31 AM [facility] MCV 81.2 79.0 - 98.0 FL LAB HEMETOLOGY METHOD 09/20/2024 11:31 AM [facility] MCH 25.8(L) 27.0 - 32.0 pcg LAB HEMETOLOGY METHOD 09/20/2024 11:31 AM [facility] MCHC 31.8(L) 32.0 - 37.0 g/dL LAB HEMETOLOGY METHOD 09/20/2024 11:31 AM [facility] RDW 15.1(H) 11.0 - 15.0 % LAB HEMETOLOGY METHOD 09/20/2024 11:31 AM [facility] Platelets 275 130 - 400 K/[facility] LAB HEMETOLOGY METHOD 09/20/2024 11:31 AM [facility] MPV 11.2(H) 7.0 - 11.0 FL LAB HEMETOLOGY METHOD 09/20/2024 11:31 AM [facility] NRBC 0.0 <1.0 % LAB HEMETOLOGY METHOD 09/20/2024 11:31 AM [facility] NRBC Absolute 0.00 <0.10 K/[facility] LAB HEMETOLOGY METHOD 09/20/2024 11:31 AM EDT [facility] Blood Venous blood specimen / Unknown 09/20/2024 7:32 AM EDT 09/20/2024 11:10 AM EDT us Jemal Grigsby MD LAB BLOOD ORDERABLES Final Resul t [facility] [address] [place] [address], documented in this encounter Visit Diagnoses Diagnosis Metabolic encephalopathy Rhabdomyolysis Unspecified convulsions (CMS/HCC V24, CMS/HCC V28) Chronic viral hepatitis C (CMS/HCC V24, [facility]/HCC V28) Chronic hepatitis C without mention of hepatic coma Dysarthria and anarthria Type 2 diabetes mellitus without complications (CMS/HCC V24, [facility]/HCC V28) documented in this encounter Care Teams Academic Guidance Specialist Relationship Specialty Start Date End Date Yassine Rodriguez MD [address] [place] [address] Dr [address] [place] PCP - General 02/16/24 documented as of this encounter
--- OUTSIDE RECORDS SUMMARY | 2025-01-16 13:22 | XMS_ITS | Encounter Summary ---
Author Organization [facility] Address [address] [place] [address] Care Team Providers Care Title Manager Name Role Phone Yassine Rodriguez MD Primary Care Provider Encounter Details Date Type Department Care Team (Late st Contact Info) Description 09/05/2024 Lab Requisition [facility] - Main Lab [address] [facility] [place] [address] Jemal Grigsby MD [address] [place] [phone] Metabolic encephalopathy; Rhabdomyolysis; Unspecified convulsions (CMS/HCC [...] Associated Diagnosis Comments COMPLETE BLOOD COUNT Routine 09/06/2024 7:19 AM EDT Metabolic encephalopathy Rhabdomyolysis Unspecified convulsions (CMS/HCC V24, CMS/HCC V28) C-REACTIVE PROTEIN Routine 09/06/2024 7: 19 AM EDT Metabolic encephalopathy Rhabdomyolysis Unspecified convulsions (CMS/HCC V24, CMS/HCC V28) CREATINE KINASE Routine 09/06/2024 7:19 AM EDT Metabolic encephalopathy Rhabdomyolysis Unspecified convulsions (CMS/HCC V24, CMS/HCC V28) COMPREHENSIVE METABOLIC PANEL Routine 09/06/2024 7:19 AM EDT Metabolic encephalopathy Rhabdomyolysis Unspecified convulsions (CMS/HCC V24, CMS/HCC V28) documented in this encounter Results * Creatine kinase (09/06/2024 7:19 AM EDT) Total CK 61 22 - 269 unit/L LAB CHEMISTRY METHOD 09/06/2024 11:05 AM EDT [facility] Blood Venous blood specimen / Unknown Venipuncture / Unknown 09/06/2024 7:19 AM EDT 09/06/2024 9:08 AM EDT Jemal Grigsby MD LAB BLOOD ORDERABLES Final Resul t Performing Organization Address [facility]/ZIP Co de Phone Number [facility] [address] [place] [address], * C-reactive protein (09/06/2024 7:19 AM EDT) Pathologist [facility] C-Reactive Protein <0.29 <=0.50 mg/dL LAB CHEMISTRY METHOD 09/06/2024 10:51 AM EDT [facility] Blood Venous blood specimen / Unknown Venipuncture / Unknown 09/06/2024 7:19 AM EDT 09/06/2024 9:08 AM EDT Jemal Grigsby MD LAB BLOOD ORDERABLES Final Resul t Performing Organization Address City/[facility]/ZIP Co de Phone Number [facility] [address] [place] [address], * Comprehensive metabolic panel (09/06/2024 7:19 AM EDT) Pathologist [facility] Sodium 139 133 - 145 mmol/L LAB CHEMISTRY METHOD 09/06/2024 11:06 AM EDT [facility] Potassium 4.2 3.5 - 5.5 mmol/L LAB CHEMISTRY METHOD 09/06/2024 11:06 AM [facility] Chloride 103 96 - 110 mmol/L LAB CHEMISTRY METHOD 09/06/2024 11:06 AM [facility] CO2 27 21 - 32 mmol/L LAB CHEMISTRY METHOD 09/06/2024 11:06 AM [facility] Anion Gap 9 3 - 11 LAB CHEMISTRY METHOD 09/06/2024 11:06 AM [facility] Glucose 99 70 - 100 mg/dL LAB CHEMISTRY METHOD 09/06/2024 11:06 AM [facility] BUN 13 5 - 25 mg/dL LAB CHEMISTRY METHOD 09/06/2024 11:06 AM [facility] Creatinine 0.84 0.70 - 1.30 mg/dL LAB CHEMISTRY METHOD 09/06/2024 11:06 AM [facility] eGFR 97 >=60 mL/min/1. 73m2 LAB CHEMISTRY METHOD 09/06/2024 11:06 AM [facility] Comment:Calculation based on the Chronic Kidney Disease Epidemiology Collaboration (CKD-EPI) equation refit without adjustment for race. BUN/Creatinine Ratio 15.5 LAB CHEMISTRY METHOD 09/06/2024 11:06 AM [facility] Calcium 10.1 8.5 - 10.5 mg/dL LAB CHEMISTRY METHOD 09/06/2024 11:06 AM [facility] AST (SGOT) 17 10 - 42 unit/L LAB CHEMISTRY METHOD 09/06/2024 11:06 AM [facility] ALT (SGPT) 18 10 - 60 unit/L LAB CHEMISTRY METHOD 09/06/2024 11:06 AM [facility] Alkaline Phosphatase 85 42 - 121 unit/L LAB CHEMISTRY METHOD 09/06/2024 11:06 AM [facility] Total Protein 8.0 6.0 - 8.0 g/dL LAB CHEMISTRY METHOD 09/06/2024 11:06 AM [facility] Albumin 3.9 3.2 - 5.0 g/dL LAB CHEMISTRY METHOD 09/06/2024 11:06 AM [facility] Total Bilirubin 0.5 0.0 - 1.4 mg/dL LAB CHEMISTRY METHOD 09/06/2024 11:06 AM [facility] Blood Venous blood specimen / Unknown Venipuncture / Unknown 09/06/2024 7:19 AM EDT 09/06/2024 9:08 AM EDT us Jemal Grigsby MD LAB BLOOD ORDERABLES Final Resul t [facility] [address] [place] [address], * (ABNORMAL) Complete blood count (09/06/2024 7:19 AM EDT) WBC 8.0 4.8 - 10.8 K/mcL LAB HEMETOLOGY METHOD 09/06/2024 10:10 AM [facility] RBC 5.20 4.50 - 5.50 M/mcL LAB HEMETOLOGY METHOD 09/06/2024 10:10 AM [facility] Hemoglobin 13.4(L) 13.5 - 17.5 g/dL LAB HEMETOLOGY METHOD 09/06/2024 10:10 AM [facility] Hematocrit 43.4 42.0 - 54.0 % LAB HEMETOLOGY METHOD 09/06/2024 10:10 AM [facility] MCV 83.3 79.0 - 98.0 FL LAB HEMETOLOGY METHOD 09/06/2024 10:10 AM [facility] MCH 25.7(L) 27.0 - 32.0 pcg LAB HEMETOLOGY METHOD 09/06/2024 10:10 AM EDT [facility] MCHC 30.9(L) 32.0 - 37.0 g/dL LAB HEMETOLOGY METHOD 09/06/2024 10:10 AM EDT [facility] RDW 14.9 11.0 - 15.0 % LAB HEMETOLOGY METHOD 09/06/2024 10:10 AM EDT [facility] Platelets 334 130 - 400 K/mcL LAB HEMETOLOGY METHOD 09/06/2024 10:10 AM EDT [facility] MPV 11.3(H) 7.0 - 11.0 FL LAB HEMETOLOGY METHOD 09/06/2024 10:10 AM EDT [facility] NRBC 0.0 <1.0 % LAB HEMETOLOGY METHOD 09/06/2024 10:10 AM EDT [facility] NRBC Absolute 0.00 <0.10 K/mcL LAB HEMETOLOGY METHOD 09/06/2024 10:10 AM EDT [facility] Blood Venous blood specimen / Unknown Venipuncture / Unknown 09/06/2024 7:19 AM EDT 09/06/2024 9:08 AM EDT us Jemal Grigsby MD LAB BLOOD ORDERABLES Final Resul t [facility] [address] [place] [address], documented in this encounter Visit Diagnoses Diagnosis Metabolic encephalopathy Rhabdomyolysis Unspecified convulsions (CMS/HCC V24, CMS/HCC V28) documented in this encounter Care Teams Title Manager Relationship Specialty Start Date End Date Yassine Rodriguez MD [address] [place] [address] Dr Ramos Beba Deisy PA PCP - General 02/16/24 documented as of this encounter
--- OUTSIDE RECORDS SUMMARY | 2025-01-16 13:23 | XMS_ITS | Encounter Summary ---
Author Organization [facility] Address [address] [place] [address] Care Team Providers Care Accounting Professor Name Role Phone Yassine Rodriguez MD Primary Care Provider Encounter Details Date Type Department Care Team (Late st Contact Info) Description 09/12/2024 Lab Requisition [facility] - Main Lab 299 [facility] [place] [address] Jemal Grigsby MD [address] [place] [phone] Metabolic encephalopathy; Rhabdomyolysis; Unspecified convulsions (CMS/HCC [...] Associated Diagnosis Comments COMPLETE BLOOD COUNT Routine 09/13/2024 7:36 AM EDT Metabolic encephalopathy Rhabdomyolysis Unspecified convulsions (CMS/HCC V24, CMS/HCC V28) C-REACTIVE PROTEIN Routine 09/13/2024 7: 36 AM EDT Metabolic encephalopathy Rhabdomyolysis Unspecified convulsions (CMS/HCC V24, CMS/HCC V28) CREATINE KINASE Routine 09/13/2024 7:36 AM EDT Metabolic encephalopathy Rhabdomyolysis Unspecified convulsions (CMS/HCC V24, CMS/HCC V28) COMPREHENSIVE METABOLIC PANEL Routine 09/13/2024 7:36 AM EDT Metabolic encephalopathy Rhabdomyolysis Unspecified convulsions (CMS/HCC V24, CMS/HCC V28) documented in this encounter Results * Creatine kinase (09/13/2024 7:36 AM EDT) Total CK 62 22 - 269 unit/L LAB CHEMISTRY METHOD 09/13/2024 9:56 AM EDT [facility] Blood Venous blood specimen / Unknown Venipuncture / Unknown 09/13/2024 7:36 AM EDT 09/13/2024 8:50 AM EDT Jemal Grigsby MD LAB BLOOD ORDERABLES Final Resul t Performing Organization Address [facility]/ZIP Co de Phone Number [facility] [address] [place] [address], * C-reactive protein (09/13/2024 7:36 AM EDT) Pathologist [facility] C-Reactive Protein <0.29 <=0.50 mg/dL LAB CHEMISTRY METHOD 09/13/2024 9:56 AM EDT [facility] Blood Venous blood specimen / Unknown Venipuncture / Unknown 09/13/2024 7:36 AM EDT 09/13/2024 8:50 AM EDT Jemal Grigsby MD LAB BLOOD ORDERABLES Final Resul t Performing Organization Address City/[facility]/ZIP Co de Phone Number [facility] [address] [place] [address], * (ABNORMAL) Comprehensive metabolic panel (09/13/2024 7:36 AM EDT) Sodium 139 133 - 145 mmol/L LAB CHEMISTRY METHOD 09/13/2024 11:33 AM EDT [facility] Potassium 4.3 3.5 - 5.5 mmol/L LAB CHEMISTRY METHOD 09/13/2024 11:33 AM [facility] Chloride 105 96 - 110 mmol/L LAB CHEMISTRY METHOD 09/13/2024 11:33 AM [facility] CO2 28 21 - 32 mmol/L LAB CHEMISTRY METHOD 09/13/2024 11:33 AM [facility] Anion Gap 6 3 - 11 LAB CHEMISTRY METHOD 09/13/2024 11:33 AM [facility] Glucose 110(H) 70 - 100 mg/dL LAB CHEMISTRY METHOD 09/13/2024 11:33 AM [facility] BUN 16 5 - 25 mg/dL LAB CHEMISTRY METHOD 09/13/2024 11:33 AM [facility] Creatinine 0.82 0.70 - 1.30 mg/dL LAB CHEMISTRY METHOD 09/13/2024 11:33 AM [facility] eGFR 97 >=60 mL/min/1. 73m2 LAB CHEMISTRY METHOD 09/13/2024 11:33 AM [facility] Comment:Calculation based on the Chronic Kidney Disease Epidemiology Collaboration (CKD-EPI) equation refit without adjustment for race. BUN/Creatinine Ratio 19.5 LAB CHEMISTRY METHOD 09/13/2024 11:33 AM [facility] Calcium 9.5 8.5 - 10.5 mg/dL LAB CHEMISTRY METHOD 09/13/2024 11:33 AM [facility] AST (SGOT) 15 10 - 42 unit/L LAB CHEMISTRY METHOD 09/13/2024 11:33 AM [facility] ALT (SGPT) 16 10 - 60 unit/L LAB CHEMISTRY METHOD 09/13/2024 11:33 AM [facility] Alkaline Phosphatase 93 42 - 121 unit/L LAB CHEMISTRY METHOD 09/13/2024 11:33 AM [facility] Total Protein 7.8 6.0 - 8.0 g/dL LAB CHEMISTRY METHOD 09/13/2024 11:33 AM EDT [facility] Albumin 3.8 3.2 - 5.0 g/dL LAB CHEMISTRY METHOD 09/13/2024 11:33 AM EDT [facility] Total Bilirubin 0.4 0.0 - 1.4 mg/dL LAB CHEMISTRY METHOD 09/13/2024 11:33 AM EDT [facility] Blood Venous blood specimen / Unknown Venipuncture / Unknown 09/13/2024 7:36 AM EDT 09/13/2024 8:50 AM EDT us Jemal Grigsby MD LAB BLOOD ORDERABLES Final Resul t [facility] [address] [place] [address], * (ABNORMAL) Complete blood count (09/13/2024 7:36 AM EDT) WBC 8.4 4.8 - 10.8 K/mcL LAB HEMETOLOGY METHOD 09/13/2024 9:22 AM [facility] RBC 5.10 4.50 - 5.50 M/mcL LAB HEMETOLOGY METHOD 09/13/2024 9:22 AM [facility] Hemoglobin 13.0(L) 13.5 - 17.5 g/dL LAB HEMETOLOGY METHOD 09/13/2024 9:22 AM [facility] Hematocrit 41.0(L) 42.0 - 54.0 % LAB HEMETOLOGY METHOD 09/13/2024 9:22 AM [facility] MCV 80.6 79.0 - 98.0 FL LAB HEMETOLOGY METHOD 09/13/2024 9:22 AM [facility] MCH 25.5(L) 27.0 - 32.0 pcg LAB HEMETOLOGY METHOD 09/13/2024 9:22 AM EDT [facility] MCHC 31.7(L) 32.0 - 37.0 g/dL LAB HEMETOLOGY METHOD 09/13/2024 9:22 AM EDT [facility] RDW 14.8 11.0 - 15.0 % LAB HEMETOLOGY METHOD 09/13/2024 9:22 AM EDT [facility] Platelets 331 130 - 400 K/mcL LAB HEMETOLOGY METHOD 09/13/2024 9:22 AM EDT [facility] MPV 11.3(H) 7.0 - 11.0 FL LAB HEMETOLOGY METHOD 09/13/2024 9:22 AM EDT [facility] NRBC 0.0 <1.0 % LAB HEMETOLOGY METHOD 09/13/2024 9:22 AM EDT [facility] NRBC Absolute 0.00 <0.10 K/mcL LAB HEMETOLOGY METHOD 09/13/2024 9:22 AM EDT [facility] Blood Venous blood specimen / Unknown Venipuncture / Unknown 09/13/2024 7:36 AM EDT 09/13/2024 8:50 AM EDT us Jemal Grigsby MD LAB BLOOD ORDERABLES Final Resul t [facility] [address] [place] [address], documented in this encounter Visit Diagnoses Diagnosis Metabolic encephalopathy Rhabdomyolysis Unspecified convulsions (CMS/HCC V24, CMS/HCC V28) documented in this encounter Care Teams Accounting Professor Relationship Specialty Start Date End Date Yassine Rodriguez MD [address] [place] [address] [place] [address] PCP - General 02/16/24 documented as of this encounter
--- OUTSIDE RECORDS SUMMARY | 2025-01-16 13:23 | XMS_ITS | Encounter Summary ---
Author Organization [facility] Address [address] [place] [address] Care Team Providers Care Service Inspector Name Role Phone Yassine Rodriguez MD Primary Care Provider Encounter Details Date Type Department Care Team (Late st Contact Info) Description 08/15/2024 Lab Requisition [facility] - Main Lab 299 [facility] [place] [address] Jemal Grigsby MD [address] [place] [phone] Metabolic encephalopathy; Rhabdomyolysis; Unspecified convulsions (CMS/HCC [...] Associated Diagnosis Comments COMPLETE BLOOD COUNT Routine 08/16/2024 8:37 AM EDT Metabolic encephalopathy Rhabdomyolysis Unspecified convulsions (CMS/HCC) C-REACTIVE PROTEIN Routine 08/16/2024 8: 37 AM EDT Metabolic encephalopathy Rhabdomyolysis Unspecified convulsions (CMS/HCC) COMPREHENSIVE METABOLIC PANEL Routine 08/16/2024 8:37 AM EDT Metabolic encephalopathy Rhabdomyolysis Unspecified convulsions (CMS/HCC) documented in this encounter Results * (ABNORMAL) C-reactive protein (08/16/2024 8:37 AM EDT) [facility] C-Reactive Protein 0.60(H) <=0.50 mg/dL LAB CHEMISTRY METHOD 08/16/2024 12:16 PM [facility] Blood Venous blood specimen / Unknown Venipuncture / Unknown 08/16/2024 8:37 AM EDT 08/16/2024 10:22 AM EDT us Jemal Grigsby MD LAB BLOOD ORDERABLES Final Resul t [facility] [address] [place] [address], [place] [phone] * (ABNORMAL) Comprehensive metabolic panel (08/16/2024 8:37 AM EDT) [facility] Sodium 135 133 - 145 mmol/L LAB CHEMISTRY METHOD 08/16/2024 12:16 PM [facility] Potassium 4.4 3.5 - 5.5 mmol/L LAB CHEMISTRY METHOD 08/16/2024 12:16 PM [facility] Chloride 102 96 - 110 mmol/L LAB CHEMISTRY METHOD 08/16/2024 12:16 PM [facility] CO2 28 21 - 32 mmol/L LAB CHEMISTRY METHOD 08/16/2024 12:16 PM [facility] Anion Gap 5 3 - 11 LAB CHEMISTRY METHOD 08/16/2024 12:16 PM [facility] Glucose 121(H) 70 - 100 mg/dL LAB CHEMISTRY METHOD 08/16/2024 12:16 PM [facility] BUN 7 5 - 25 mg/dL LAB CHEMISTRY METHOD 08/16/2024 12:16 PM [facility] Creatinine 0.89 0.70 - 1.30 mg/dL LAB CHEMISTRY METHOD 08/16/2024 12:16 PM [facility] eGFR 95 >=60 mL/min/1. 73m2 LAB CHEMISTRY METHOD 08/16/2024 12:16 PM T [facility] Comment:Calculation based on the Chronic Kidney Disease Epidemiology Collaboration (CKD-EPI) equation refit without adjustment for race. BUN/Creatinine Ratio 7.9 LAB CHEMISTRY METHOD 08/16/2024 12:16 PM T [facility] Calcium 9.1 8.5 - 10.5 mg/dL LAB CHEMISTRY METHOD 08/16/2024 12:16 PM T [facility] AST (SGOT) 11 10 - 42 unit/L LAB CHEMISTRY METHOD 08/16/2024 12:16 PM [facility] ALT (SGPT) 22 10 - 60 unit/L LAB CHEMISTRY METHOD 08/16/2024 12:16 PM [facility] Alkaline Phosphatase 84 42 - 121 unit/L LAB CHEMISTRY METHOD 08/16/2024 12:16 PM [facility] Total Protein 7.0 6.0 - 8.0 g/dL LAB CHEMISTRY METHOD 08/16/2024 12:16 PM [facility] Albumin 3.3 3.2 - 5.0 g/dL LAB CHEMISTRY METHOD 08/16/2024 12:16 PM [facility] Total Bilirubin 0.2 0.0 - 1.4 mg/dL LAB CHEMISTRY METHOD 08/16/2024 12:16 PM [facility] Blood Venous blood specimen / Unknown Venipuncture / Unknown 08/16/2024 8:37 AM EDT 08/16/2024 10:22 AM EDT us Jemal Grigsby MD LAB BLOOD ORDERABLES Final Resul t [facility] [address] [place] [address], * (ABNORMAL) Complete blood count (08/16/2024 8:37 AM EDT) WBC 5.8 4.8 - 10.8 K/mcL LAB HEMETOLOGY METHOD 08/16/2024 11:14 AM [facility] RBC 4.50 4.50 - 5.50 M/mcL LAB HEMETOLOGY METHOD 08/16/2024 11:14 AM [facility] Hemoglobin 11.7(L) 13.5 - 17.5 g/dL LAB HEMETOLOGY METHOD 08/16/2024 11:14 AM [facility] Hematocrit 37.9(L) 42.0 - 54.0 % LAB HEMETOLOGY METHOD 08/16/2024 11:14 AM [facility] MCV 83.7 79.0 - 98.0 FL LAB HEMETOLOGY METHOD 08/16/2024 11:14 AM [facility] MCH 25.8(L) 27.0 - 32.0 pcg LAB HEMETOLOGY METHOD 08/16/2024 11:14 AM [facility] MCHC 30.9(L) 32.0 - 37.0 g/dL LAB HEMETOLOGY METHOD 08/16/2024 11:14 AM [facility] RDW 15.1(H) 11.0 - 15.0 % LAB HEMETOLOGY METHOD 08/16/2024 11:14 AM [facility] Platelets 364 130 - 400 K/mcL LAB HEMETOLOGY METHOD 08/16/2024 11:14 AM [facility] MPV 11.4(H) 7.0 - 11.0 FL LAB HEMETOLOGY METHOD 08/16/2024 11:14 AM [facility] NRBC 0.0 <1.0 % LAB HEMETOLOGY METHOD 08/16/2024 11:14 AM [facility] NRBC Absolute 0.00 <0.10 [facility] LAB HEMETOLOGY METHOD 08/16/2024 11:14 AM EDT [facility] Blood Venous blood specimen / Unknown Venipuncture / Unknown 08/16/2024 8:37 AM EDT 08/16/2024 10:22 AM EDT us Jemal Grigsby MD LAB BLOOD ORDERABLES Final Resul t [facility] [address] [place] [address], documented in this encounter Visit Diagnoses Diagnosis Metabolic encephalopathy Rhabdomyolysis Unspecified convulsions (CMS/HCC V24, CMS/HCC V28) documented in this encounter Care Teams Service Inspector Relationship Specialty Start Date End Date Yassine Rodriguez MD [address] [place] [address] Dr [address] [place] PCP - General 02/16/24 documented as of this encounter
--- OUTSIDE RECORDS SUMMARY | 2025-01-16 13:23 | XMS_ITS | Encounter Summary ---
Author Organization [facility] Address [address] [place] [address] Care Team Providers Care Patternmaker Pressure Cast Name Role Phone Yassine Rodriguez MD Primary Care Provider Encounter Details Date Type Department Care Team (Late st Contact Info) Description 08/29/[address] [facility] - Main Lab [address] [place] [address] Jemal Grigsby MD [address] [place] [phone] Essential (primary) hypertension Social History Tobacco Use Types Packs/Day Years [...] Associated Diagnosis Comments COMPLETE BLOOD COUNT Routine 08/29/2024 5:55 AM EDT Essential (primary) hypertension CREATINE KINASE Routine 08/29/2024 5:55 AM EDT Essential (primary) hypertension COMPREHENSIVE METABOLIC PANEL Routine 08/29/2024 5:55 AM EDT Essential (primary) hypertension documented in this encounter Results * Creatine kinase (08/29/2024 5:55 AM EDT) Total CK 69 22 - 269 unit/L LAB CHEMISTRY METHOD 08/29/2024 11:58 AM [facility] Blood Venous blood specimen / Unknown Venipuncture / Unknown 08/29/2024 5:55 AM EDT 08/29/2024 10:39 AM EDT us Jemal Grigsby MD LAB BLOOD ORDERABLES Final Resul t [facility] [address] [place] [address], [place] [phone] * (ABNORMAL) Comprehensive metabolic panel (08/29/2024 5:55 AM EDT) Sodium 136 133 - 145 mmol/L LAB CHEMISTRY METHOD 08/29/2024 11:58 AM [facility] Potassium 4.7 3.5 - 5.5 mmol/L LAB CHEMISTRY METHOD 08/29/2024 11:58 AM [facility] Chloride 101 96 - 110 mmol/L LAB CHEMISTRY METHOD 08/29/2024 11:58 AM [facility] CO2 28 21 - 32 mmol/L LAB CHEMISTRY METHOD 08/29/2024 11:58 AM [facility] Anion Gap 7 3 - 11 LAB CHEMISTRY METHOD 08/29/2024 11:58 AM [facility] Glucose 73 70 - 100 mg/dL LAB CHEMISTRY METHOD 08/29/2024 11:58 AM [facility] BUN 11 5 - 25 mg/dL LAB CHEMISTRY METHOD 08/29/2024 11:58 AM [facility] Creatinine 0.75 0.70 - 1.30 mg/dL LAB CHEMISTRY METHOD 08/29/2024 11:58 AM [facility] eGFR 100 >=60 mL/min/1. 73m2 LAB CHEMISTRY METHOD 08/29/2024 11:58 AM [facility] Comment:Calculation based on the Chronic Kidney Disease Epidemiology Collaboration (CKD-EPI) equation refit without adjustment for race. BUN/Creatinine Ratio 14.7 LAB CHEMISTRY METHOD 08/29/2024 11:58 AM [facility] Calcium 9.7 8.5 - 10.5 mg/dL LAB CHEMISTRY METHOD 08/29/2024 11:58 AM [facility] AST (SGOT) 15 10 - 42 unit/L LAB CHEMISTRY METHOD 08/29/2024 11:58 AM [facility] ALT (SGPT) 9(L) 10 - 60 unit/L LAB CHEMISTRY METHOD 08/29/2024 11:58 AM [facility] Alkaline Phosphatase 66 42 - 121 unit/L LAB CHEMISTRY METHOD 08/29/2024 11:58 AM [facility] Total Protein 7.1 6.0 - 8.0 g/dL LAB CHEMISTRY METHOD 08/29/2024 11:58 AM [facility] Albumin 3.4 3.2 - 5.0 g/dL LAB CHEMISTRY METHOD 08/29/2024 11:58 AM [facility] Total Bilirubin 0.5 0.0 - 1.4 mg/dL LAB CHEMISTRY METHOD 08/29/2024 11:58 AM [facility] Blood Venous blood specimen / Unknown Venipuncture / Unknown 08/29/2024 5:55 AM EDT 08/29/2024 10:39 AM EDT us Jemal Grigsby MD LAB BLOOD ORDERABLES Final Resul t [facility] [address] [place] [address], * (ABNORMAL) Complete blood count (08/29/2024 5:55 AM EDT) WBC 5.9 4.8 - 10.8 K/mcL LAB HEMETOLOGY METHOD 08/29/2024 11:25 AM [facility] RBC 4.80 4.50 - 5.50 M/mcL LAB HEMETOLOGY METHOD 08/29/2024 11:25 AM [facility] Hemoglobin 12.5(L) 13.5 - 17.5 g/dL LAB HEMETOLOGY METHOD 08/29/2024 11:25 AM [facility] Hematocrit 40.0(L) 42.0 - 54.0 % LAB HEMETOLOGY METHOD 08/29/2024 11:25 AM [facility] MCV 83.0 79.0 - 98.0 FL LAB HEMETOLOGY METHOD 08/29/2024 11:25 AM [facility] MCH 25.9(L) 27.0 - 32.0 pcg LAB HEMETOLOGY METHOD 08/29/2024 11:25 AM [facility] MCHC 31.3(L) 32.0 - 37.0 g/dL LAB HEMETOLOGY METHOD 08/29/2024 11:25 AM [facility] RDW 14.8 11.0 - 15.0 % LAB HEMETOLOGY METHOD 08/29/2024 11:25 AM [facility] Platelets 270 130 - 400 K/mcL LAB HEMETOLOGY METHOD 08/29/2024 11:25 AM [facility] MPV 11.5(H) 7.0 - 11.0 FL LAB HEMETOLOGY METHOD 08/29/2024 11:25 AM [facility] NRBC 0.0 <1.0 % LAB HEMETOLOGY METHOD 08/29/2024 11:25 AM [facility] NRBC Absolute 0.00 <0.10 K/mcL LAB HEMETOLOGY METHOD 08/29/2024 11:25 AM [facility] Blood Venous blood specimen / Unknown Venipuncture / Unknown 08/29/2024 5:55 AM EDT 08/29/2024 10:39 AM EDT us Jemal Grigsby MD LAB BLOOD ORDERABLES Final Resul t [facility] ([facility]) [facility] [address] [place] [address], documented in this encounter Visit Diagnoses Diagnosis Essential (primary) hypertension Unspecified essential hypertension documented in this encounter Care Teams Patternmaker Pressure Cast Relationship Specialty Start Date End Date Yassine Rodriguez MD [address] [place] [address] Dr [address] [place], [place] PCP - General 02/16/24 documented as of this encounter
--- OUTSIDE RECORDS SUMMARY | 2025-01-16 13:23 | XMS_ITS | Encounter Summary ---
Author Organization [facility] Address [address] [place] [address] Care Team Providers Care Meat Washer Name Role Phone Yassine Rodriguez MD Primary Care Provider Encounter Details Date Type Department Care Team (Late st Contact Info) Description 08/02/2024 Lab Requisition [facility] - Main Lab [address] [facility] [place] [address] Jemal Grigsby MD [address] [place] [phone] Type 2 diabetes mellitus without complications [...] Associated Diagnosis Comments COMPLETE BLOOD COUNT Routine 08/02/2024 8:53 AM EDT Type 2 diabetes mellitus without complications (CMS/HCC) HEMOGLOBIN A1C Routine 08/02/2024 8:53 AM EDT Type 2 diabetes mellitus without complications (CMS/HCC) COMPREHENSIVE METABOLIC PANEL Routine 08/02/2024 8:53 AM EDT Type 2 diabetes mellitus without complications (CMS/HCC) documented in this encounter Results * (ABNORMAL) Hemoglobin A1c (08/02/2024 8:53 AM EDT) [facility] Hemoglobin A1C 6.6(H) <6.5 % LAB CHEMISTRY METHOD 08/02/2024 1:31 PM EDT [facility] Mean Bld Glu Estim. 143 mg/dL LAB CHEMISTRY METHOD 08/02/2024 1:31 PM T [facility] Blood Venous blood specimen / Unknown Venipuncture / Unknown 08/02/2024 8:53 AM EDT 08/02/2024 10:24 AM EDT us Jemal Grigsby MD LAB BLOOD ORDERABLES Final Resul t [facility] [address] [place] [address], [place] [phone] * (ABNORMAL) Comprehensive metabolic panel (08/02/2024 8:53 AM EDT) [facility] Sodium 142 133 - 145 mmol/L LAB CHEMISTRY METHOD 08/02/2024 11:37 AM [facility] Potassium 4.1 3.5 - 5.5 mmol/L LAB CHEMISTRY METHOD 08/02/2024 11:37 AM [facility] Chloride 107 96 - 110 mmol/L LAB CHEMISTRY METHOD 08/02/2024 11:37 AM [facility] CO2 26 21 - 32 mmol/L LAB CHEMISTRY METHOD 08/02/2024 11:37 AM [facility] Anion Gap 9 3 - 11 LAB CHEMISTRY METHOD 08/02/2024 11:37 AM [facility] Glucose 110(H) 70 - 100 mg/dL LAB CHEMISTRY METHOD 08/02/2024 11:37 AM [facility] BUN 25 5 - 25 mg/dL LAB CHEMISTRY METHOD 08/02/2024 11:37 AM [facility] Creatinine 0.80 0.70 - 1.30 mg/dL LAB CHEMISTRY METHOD 08/02/2024 11:37 AM [facility] eGFR 98 >=60 mL/min/1. 73m2 LAB CHEMISTRY METHOD 08/02/2024 11:37 AM [facility] Comment:Calculation based on the Chronic Kidney Disease Epidemiology Collaboration (CKD-EPI) equation refit without adjustment for race. BUN/Creatinine Ratio 31.3 LAB CHEMISTRY METHOD 08/02/2024 11:37 AM [facility] Calcium 9.0 8.5 - 10.5 mg/dL LAB CHEMISTRY METHOD 08/02/2024 11:37 AM [facility] AST (SGOT) 27 10 - 42 unit/L LAB CHEMISTRY METHOD 08/02/2024 11:37 AM [facility] ALT (SGPT) 25 10 - 60 unit/L LAB CHEMISTRY METHOD 08/02/2024 11:37 AM [facility] Alkaline Phosphatase 70 42 - 121 unit/L LAB CHEMISTRY METHOD 08/02/2024 11:37 AM [facility] Total Protein 7.1 6.0 - 8.0 g/dL LAB CHEMISTRY METHOD 08/02/2024 11:37 AM [facility] Albumin 3.2 3.2 - 5.0 g/dL LAB CHEMISTRY METHOD 08/02/2024 11:37 AM [facility] Total Bilirubin 0.5 0.0 - 1.4 mg/dL LAB CHEMISTRY METHOD 08/02/2024 11:37 AM [facility] Blood Venous blood specimen / Unknown Venipuncture / Unknown 08/02/2024 8:53 AM EDT 08/02/2024 10:24 AM EDT us Jemal Grigsby MD LAB BLOOD ORDERABLES Final Resul t [facility] [address] [place] [address], [place] [phone] * (ABNORMAL) Complete blood count (08/02/2024 8:53 AM EDT) [facility] WBC 8.9 4.8 - 10.8 K/mcL LAB HEMETOLOGY METHOD 08/02/2024 11:16 AM [facility] RBC 5.20 4.50 - 5.50 M/mcL LAB HEMETOLOGY METHOD 08/02/2024 11:16 AM [facility] Hemoglobin 13.3(L) 13.5 - 17.5 g/dL LAB HEMETOLOGY METHOD 08/02/2024 11:16 AM [facility] Hematocrit 42.0 42.0 - 54.0 % LAB HEMETOLOGY METHOD 08/02/2024 11:16 AM [facility] MCV 81.4 79.0 - 98.0 FL LAB HEMETOLOGY METHOD 08/02/2024 11:16 AM [facility] MCH 25.8(L) 27.0 - 32.0 pcg LAB HEMETOLOGY METHOD 08/02/2024 11:16 AM [facility] MCHC 31.7(L) 32.0 - 37.0 g/dL LAB HEMETOLOGY METHOD 08/02/2024 11:16 AM [facility] RDW 15.2(H) 11.0 - 15.0 % LAB HEMETOLOGY METHOD 08/02/2024 11:16 AM [facility] Platelets 301 130 - 400 K/mcL LAB HEMETOLOGY METHOD 08/02/2024 11:16 AM [facility] MPV 11.7(H) 7.0 - 11.0 FL LAB HEMETOLOGY METHOD 08/02/2024 11:16 AM [facility] NRBC 0.0 <1.0 % LAB HEMETOLOGY METHOD 08/02/2024 11:16 AM EDT [facility] NRBC Absolute 0.00 <0.10 K/mcL LAB HEMETOLOGY METHOD 08/02/2024 11:16 AM EDT [facility] Blood Venous blood specimen / Unknown Venipuncture / Unknown 08/02/2024 8:53 AM EDT 08/02/2024 10:24 AM EDT us Jemal Grigsby MD LAB BLOOD ORDERABLES Final Resul t [facility] [address] [place] [address], documented in this encounter Visit Diagnoses Diagnosis Type 2 diabetes mellitus without complications (CMS/HCC V24, CMS/HCC V28) documented in this encounter Care Teams Meat Washer Relationship Specialty Start Date End Date Yassine Rodriguez MD [address] [place] [address] Dr [address] [place] PCP - General 02/16/24 documented as of this encounter
--- OUTSIDE RECORDS SUMMARY | 2025-01-16 13:23 | XMS_ITS | Encounter Summary ---
Author Organization [facility] Address [address] [place] [address] Care Team Providers Care Oil Well Cable Tool Operator Name Role Phone Yassine Rodriguez MD Primary Care Provider [phone] Encounter Details Date Type Department Care Team (Late st Contact Info) Description 08/29/2024 Lab Requisition [facility] - Main Lab 299 [facility] [place] [address] Jemal Grigsby MD [address] [place] [phone] Metabolic encephalopathy; Rhabdomyolysis; Unspecified convulsions (CMS/HCC V24, CMS/HCC V28); Type 2 diabetes mellitus without complications (CMS/HCC V24, CMS/HCC V28); Chronic viral hepatitis C (CMS/HCC V24, CMS/HCC V28); Dysarthria and anarthria Social History Tobacco Use Types Packs/Day Years [...] Associated Diagnosis Comments COMPLETE BLOOD COUNT Routine 08/30/2024 8:34 AM EDT Metabolic encephalopathy Rhabdomyolysis Unspecified convulsions (CMS/HCC V24, CMS/HCC V28) Type 2 diabetes mellitus without complications (CMS/HCC V24, CMS/HCC V28) Chronic viral hepatitis C (CMS/HCC V24, CMS/HCC V28) Dysarthria and anarthria C-REACTIVE PROTEIN Routine 08/30/2024 8: 34 AM EDT Metabolic encephalopathy Rhabdomyolysis Unspecified convulsions (CMS/HCC V24, CMS/HCC V28) Type 2 diabetes mellitus without complications (CMS/HCC V24, CMS/HCC V28) Chronic viral hepatitis C (CMS/HCC V24, CMS/HCC V28) Dysarthria and anarthria CREATINE KINASE Routine 08/30/2024 8:34 AM EDT Metabolic encephalopathy Rhabdomyolysis Unspecified convulsions (CMS/HCC V24, CMS/HCC V28) Type 2 diabetes mellitus without complications (CMS/HCC V24, CMS/HCC V28) Chronic viral hepatitis C (CMS/HCC V24, CMS/HCC V28) Dysarthria and anarthria COMPREHENSIVE METABOLIC PANEL Routine 08/30/2024 8:34 AM EDT Metabolic encephalopathy Rhabdomyolysis Unspecified convulsions (CMS/HCC V24, CMS/HCC V28) Type 2 diabetes mellitus without complications (CMS/HCC V24, CMS/HCC V28) Chronic viral hepatitis C (CMS/HCC V24, CMS/HCC V28) Dysarthria and anarthria documented in this encounter Results * Creatine kinase (08/30/2024 8:34 AM EDT) [facility] Total CK 59 22 - 269 unit/L LAB CHEMISTRY METHOD 08/30/2024 11:17 AM EDT [facility] Blood Venous blood specimen / Unknown Venipuncture / Unknown 08/30/2024 8:34 AM EDT 08/30/2024 9:56 AM EDT us Jemal Grigsby MD LAB BLOOD ORDERABLES Final Resul t [facility] [address] [place] [address], * C-reactive protein (08/30/2024 8:34 AM EDT) [facility] C-Reactive Protein <0.29 <=0.50 mg/dL LAB CHEMISTRY METHOD 08/30/2024 11:16 AM [facility] Blood Venous blood specimen / Unknown Venipuncture / Unknown 08/30/2024 8:34 AM EDT 08/30/2024 9:56 AM EDT Jemal Grigsby MD LAB BLOOD ORDERABLES Final Resul t [facility] [address] [place] [address], [place] [phone] * (ABNORMAL) Comprehensive metabolic panel (08/30/2024 8:34 AM EDT) [facility] Sodium 136 133 - 145 mmol/L LAB CHEMISTRY METHOD 08/30/2024 11:17 AM [facility] Potassium 4.3 3.5 - 5.5 mmol/L LAB CHEMISTRY METHOD 08/30/2024 11:17 AM [facility] Chloride 103 96 - 110 mmol/L LAB CHEMISTRY METHOD 08/30/2024 11:17 AM [facility] CO2 26 21 - 32 mmol/L LAB CHEMISTRY METHOD 08/30/2024 11:17 AM [facility] Anion Gap 7 3 - 11 LAB CHEMISTRY METHOD 08/30/2024 11:17 AM [facility] Glucose 138(H) 70 - 100 mg/dL LAB CHEMISTRY METHOD 08/30/2024 11:17 AM [facility] BUN 12 5 - 25 mg/dL LAB CHEMISTRY METHOD 08/30/2024 11:17 AM [facility] Creatinine 0.85 0.70 - 1.30 mg/dL LAB CHEMISTRY METHOD 08/30/2024 11:17 AM [facility] eGFR 96 >=60 mL/min/1. 73m2 LAB CHEMISTRY METHOD 08/30/2024 11:17 AM [facility] Comment:Calculation based on the Chronic Kidney Disease Epidemiology Collaboration (CKD-EPI) equation refit without adjustment for race. BUN/Creatinine Ratio 14.1 LAB CHEMISTRY METHOD 08/30/2024 11:17 AM [facility] Calcium 9.6 8.5 - 10.5 mg/dL LAB CHEMISTRY METHOD 08/30/2024 11:17 AM [facility] AST (SGOT) 13 10 - 42 unit/L LAB CHEMISTRY METHOD 08/30/2024 11:17 AM [facility] ALT (SGPT) 10 10 - 60 unit/L LAB CHEMISTRY METHOD 08/30/2024 11:17 AM [facility] Alkaline Phosphatase 80 42 - 121 unit/L LAB CHEMISTRY METHOD 08/30/2024 11:17 AM [facility] Total Protein 7.6 6.0 - 8.0 g/dL LAB CHEMISTRY METHOD 08/30/2024 11:17 AM [facility] Albumin 3.7 3.2 - 5.0 g/dL LAB CHEMISTRY METHOD 08/30/2024 11:17 AM [facility] Total Bilirubin 0.5 0.0 - 1.4 mg/dL LAB CHEMISTRY METHOD 08/30/2024 11:17 AM [facility] Blood Venous blood specimen / Unknown Venipuncture / Unknown 08/30/2024 8:34 AM EDT 08/30/2024 9:56 AM EDT us Jemal Grigsby MD LAB BLOOD ORDERABLES Final Resul t [facility] [address] [place] [address], [place] [phone] * (ABNORMAL) Complete blood count (08/30/2024 8:34 AM EDT) WBC 6.8 4.8 - 10.8 K/mcL LAB HEMETOLOGY METHOD 08/30/2024 10:45 AM [facility] RBC 4.90 4.50 - 5.50 M/mcL LAB HEMETOLOGY METHOD 08/30/2024 10:45 AM [facility] Hemoglobin 12.8(L) 13.5 - 17.5 g/dL LAB HEMETOLOGY METHOD 08/30/2024 10:45 AM [facility] Hematocrit 40.3(L) 42.0 - 54.0 % LAB HEMETOLOGY METHOD 08/30/2024 10:45 AM [facility] MCV 82.2 79.0 - 98.0 FL LAB HEMETOLOGY METHOD 08/30/2024 10:45 AM [facility] MCH 26.1(L) 27.0 - 32.0 pcg LAB HEMETOLOGY METHOD 08/30/2024 10:45 AM [facility] MCHC 31.8(L) 32.0 - 37.0 g/dL LAB HEMETOLOGY METHOD 08/30/2024 10:45 AM [facility] RDW 14.7 11.0 - 15.0 % LAB HEMETOLOGY METHOD 08/30/2024 10:45 AM [facility] Platelets 302 130 - 400 K/mcL LAB HEMETOLOGY METHOD 08/30/2024 10:45 AM [facility] MPV 11.5(H) 7.0 - 11.0 FL LAB HEMETOLOGY METHOD 08/30/2024 10:45 AM [facility] NRBC 0.0 <1.0 % LAB HEMETOLOGY METHOD 08/30/2024 10:45 AM [facility] NRBC Absolute 0.00 <0.10 K/mcL LAB HEMETOLOGY METHOD 08/30/2024 10:45 AM EDT [facility] Blood Venous blood specimen / Unknown Venipuncture / Unknown 08/30/2024 8:34 AM EDT 08/30/2024 9:56 AM EDT us Jemal Grigsby MD LAB BLOOD ORDERABLES Final Resul t [facility] [address] [place] [address], documented in this encounter Visit Diagnoses Diagnosis Metabolic encephalopathy Rhabdomyolysis Unspecified convulsions ([facility]/HCC V24, [facility]/HCC V28) Type 2 diabetes mellitus without complications ([facility]/HCC V24, [facility]/HCC V28) Chronic viral hepatitis C ([facility]/HCC V24, [facility] V28) Chronic hepatitis C without mention of hepatic coma Dysarthria and anarthria documented in this encounter Care Teams Oil Well Cable Tool Operator Relationship Specialty Start Date End Date Yassine Rodriguez MD [address] [place] [address] Dr [address] [place], [place] PCP - General 02/16/24 documented as of this encounter
--- OUTSIDE RECORDS SUMMARY | 2025-01-16 13:23 | XMS_ITS | Encounter Summary ---
Author Organization [facility] Address [address] [place] [address] Care Team Providers Care Bookkeeper Receptionist Name Role Phone Yassine Rodriguez MD Primary Care Provider [phone] Encounter Details Date Type Department Care Team (Late st Contact Info) Description 09/26/2024 Lab Requisition [facility] - Main Lab [address] [facility] [place] [address] Jemal Grigsby MD [address] [place] [phone] Metabolic encephalopathy; Rhabdomyolysis; Unspecified convulsions (CMS/HCC [...] Associated Diagnosis Comments COMPLETE BLOOD COUNT Routine 09/27/2024 6:40 AM EDT Metabolic encephalopathy Rhabdomyolysis Unspecified convulsions (CMS/HCC V24, CMS/HCC V28) Chronic viral hepatitis C (CMS/HCC V24, CMS/HCC V28) Dysarthria and anarthria Type 2 diabetes mellitus without complications (CMS/HCC V24, CMS/HCC V28) C-REACTIVE PROTEIN Routine 09/27/2024 6: 40 AM EDT Metabolic encephalopathy Rhabdomyolysis Unspecified convulsions (CMS/HCC V24, CMS/HCC V28) Chronic viral hepatitis C (CMS/HCC V24, CMS/HCC V28) Dysarthria and anarthria Type 2 diabetes mellitus without complications (CMS/HCC V24, CMS/HCC V28) CREATINE KINASE Routine 09/27/2024 6:40 AM EDT Metabolic encephalopathy Rhabdomyolysis Unspecified convulsions (CMS/HCC V24, CMS/HCC V28) Chronic viral hepatitis C (CMS/HCC V24, CMS/HCC V28) Dysarthria and anarthria Type 2 diabetes mellitus without complications (CMS/HCC V24, CMS/HCC V28) COMPREHENSIVE METABOLIC PANEL Routine 09/27/2024 6:40 AM EDT Metabolic encephalopathy Rhabdomyolysis Unspecified convulsions (CMS/HCC V24, CMS/HCC V28) Chronic viral hepatitis C (CMS/HCC V24, CMS/HCC V28) Dysarthria and anarthria Type 2 diabetes mellitus without complications (CMS/HCC V24, CMS/HCC V28) documented in this encounter Results * Creatine kinase (09/27/2024 6:40 AM EDT) [facility] Total CK 52 22 - 269 unit/L LAB CHEMISTRY METHOD 09/27/2024 9:32 AM EDT [facility] Blood Venous blood specimen / Unknown Venipuncture / Unknown 09/27/2024 6:40 AM EDT 09/27/2024 8:37 AM EDT us Jemal Grigsby MD LAB BLOOD ORDERABLES Final Resul t [facility] [address] [place] [address], * (ABNORMAL) C-reactive protein (09/27/2024 6:40 AM EDT) [facility] C-Reactive Protein 1.58(H) <=0.50 mg/dL LAB CHEMISTRY METHOD 09/27/2024 9:48 AM [facility] Blood Venous blood specimen / Unknown Venipuncture / Unknown 09/27/2024 6:40 AM EDT 09/27/2024 8:37 AM EDT us Jemal Grigsby MD LAB BLOOD ORDERABLES Final Resul t [facility] [address] [place] [address], [place] [phone] * (ABNORMAL) Comprehensive metabolic panel (09/27/2024 6:40 AM EDT) [facility] Sodium 135 133 - 145 mmol/L LAB CHEMISTRY METHOD 09/27/2024 9:33 AM [facility] Potassium 4.5 3.5 - 5.5 mmol/L LAB CHEMISTRY METHOD 09/27/2024 9:33 AM [facility] Chloride 104 96 - 110 mmol/L LAB CHEMISTRY METHOD 09/27/2024 9:33 AM [facility] CO2 26 21 - 32 mmol/L LAB CHEMISTRY METHOD 09/27/2024 9:33 AM [facility] Anion Gap 5 3 - 11 LAB CHEMISTRY METHOD 09/27/2024 9:33 AM [facility] Glucose 107(H) 70 - 100 mg/dL LAB CHEMISTRY METHOD 09/27/2024 9:33 AM [facility] BUN 10 5 - 25 mg/dL LAB CHEMISTRY METHOD 09/27/2024 9:33 AM [facility] Creatinine 0.77 0.70 - 1.30 mg/dL LAB CHEMISTRY METHOD 09/27/2024 9:33 AM [facility] eGFR 99 >=60 mL/min/1. 73m2 LAB CHEMISTRY METHOD 09/27/2024 9:33 AM [facility] Comment:Calculation based on the Chronic Kidney Disease Epidemiology Collaboration (CKD-EPI) equation refit without adjustment for race. BUN/Creatinine Ratio 13.0 LAB CHEMISTRY METHOD 09/27/2024 9:33 AM [facility] Calcium 9.3 8.5 - 10.5 mg/dL LAB CHEMISTRY METHOD 09/27/2024 9:33 AM [facility] AST (SGOT) 11 10 - 42 unit/L LAB CHEMISTRY METHOD 09/27/2024 9:33 AM [facility] ALT (SGPT) 14 10 - 60 unit/L LAB CHEMISTRY METHOD 09/27/2024 9:33 AM [facility] Alkaline Phosphatase 91 42 - 121 unit/L LAB CHEMISTRY METHOD 09/27/2024 9:33 AM [facility] Total Protein 7.4 6.0 - 8.0 g/dL LAB CHEMISTRY METHOD 09/27/2024 9:33 AM [facility] Albumin 3.2 3.2 - 5.0 g/dL LAB CHEMISTRY METHOD 09/27/2024 9:33 AM [facility] Total Bilirubin 0.2 0.0 - 1.4 mg/dL LAB CHEMISTRY METHOD 09/27/2024 9:33 AM [facility] Blood Venous blood specimen / Unknown Venipuncture / Unknown 09/27/2024 6:40 AM EDT 09/27/2024 8:37 AM EDT us Jemal Grigsby MD LAB BLOOD ORDERABLES Final Resul t [facility] [address] [place] [address], [place] [phone] * (ABNORMAL) Complete blood count (09/27/2024 6:40 AM EDT) WBC 8.4 4.8 - 10.8 K/mcL LAB HEMETOLOGY METHOD 09/27/2024 9:13 AM [facility] RBC 4.80 4.50 - 5.50 M/mcL LAB HEMETOLOGY METHOD 09/27/2024 9:13 AM [facility] Hemoglobin 12.5(L) 13.5 - 17.5 g/dL LAB HEMETOLOGY METHOD 09/27/2024 9:13 AM [facility] Hematocrit 39.5(L) 42.0 - 54.0 % LAB HEMETOLOGY METHOD 09/27/2024 9:13 AM [facility] MCV 82.0 79.0 - 98.0 FL LAB HEMETOLOGY METHOD 09/27/2024 9:13 AM [facility] MCH 25.9(L) 27.0 - 32.0 pcg LAB HEMETOLOGY METHOD 09/27/2024 9:13 AM [facility] MCHC 31.6(L) 32.0 - 37.0 g/dL LAB HEMETOLOGY METHOD 09/27/2024 9:13 AM [facility] RDW 14.6 11.0 - 15.0 % LAB HEMETOLOGY METHOD 09/27/2024 9:13 AM [facility] Platelets 465(H) 130 - 400 K/[facility] LAB HEMETOLOGY METHOD 09/27/2024 9:13 AM [facility] MPV 10.6 7.0 - 11.0 FL LAB HEMETOLOGY METHOD 09/27/2024 9:13 AM [facility] NRBC 0.0 <1.0 % LAB HEMETOLOGY METHOD 09/27/2024 9:13 AM [facility] NRBC Absolute 0.00 <0.10 K/[facility] LAB HEMETOLOGY METHOD 09/27/2024 9:13 AM EDT [facility] Blood Venous blood specimen / Unknown Venipuncture / Unknown 09/27/2024 6:40 AM EDT 09/27/2024 8:37 AM EDT us Jemal Grigsby MD LAB BLOOD ORDERABLES Final Resul t [facility] [address] [place] [address], documented in this encounter Visit Diagnoses Diagnosis Metabolic encephalopathy Rhabdomyolysis Unspecified convulsions (CMS/HCC V24, [facility]/HCC V28) Chronic viral hepatitis C ([facility]/HCC V24, [facility]/HCC V28) Chronic hepatitis C without mention of hepatic coma Dysarthria and anarthria Type 2 diabetes mellitus without complications (CMS/HCC V24, [facility]/HCC V28) documented in this encounter Care Teams Bookkeeper Receptionist Relationship Specialty Start Date End Date Yassine Rodriguez MD [address] [place] [address] Dr [address] [place], [place] PCP - General 02/16/24 documented as of this encounter
--- OUTSIDE RECORDS SUMMARY | 2025-01-16 13:23 | XMS_ITS | Encounter Summary ---
Author Organization [facility] Address [address] [place] [address] Care Team Providers Care Communication Assistant Name Role Phone Yassine Rodriguez MD Primary Care Provider Encounter Details Date Type Department Care Team (Late st Contact Info) Description 08/06/2024 Lab Requisition [facility] - Main Lab [address] [place] [address] Jemal Grigsby MD [address] [place] [phone] Type 2 diabetes mellitus without complications [...] Associated Diagnosis Comments COMPLETE BLOOD COUNT Routine 08/07/2024 7:07 AM EDT Type 2 diabetes mellitus without complications (CMS/HCC) BASIC METABOLIC PANEL Routine 08/07/2024 7:07 AM EDT Type 2 diabetes mellitus without complications (CMS/HCC) documented in this encounter Results * (ABNORMAL) Basic metabolic panel (08/07/2024 7:07 AM EDT) Sodium 134 133 - 145 mmol/L LAB [facility]STR[facility] Potassium 4.6 3.5 - 5.5 mmol/L LAB CHEMISTRY METHOD 08/07/2024 1:57 PM [facility] Chloride 99 96 - 110 mmol/L LAB CHEMISTRY METHOD 08/07/2024 1:57 PM [facility] CO2 28 21 - 32 mmol/L LAB CHEMISTRY METHOD 08/07/2024 1:57 PM [facility] LAB Anion Gap 7 3 - 11 LAB CHEMISTRY METHOD 08/07/2024 1:57 PM [facility] Glucose 101(H) 70 - 100 mg/dL LAB CHEMISTRY METHOD 08/07/2024 1:57 PM [facility] BUN 11 5 - 25 mg/dL LAB CHEMISTRY METHOD 08/07/2024 1:57 PM [facility] LAB Comment:Results verified by repeat testing Creatinine 0.94 0.70 - 1.30 mg/dL LAB CHEMISTRY METHOD 08/07/2024 1:57 PM [facility] LAB eGFR 90 >=60 mL/min/1. 73m2 LAB CHEMISTRY METHOD 08/07/2024 1:57 PM [facility] LAB Comment:Calculation based on the Chronic Kidney Disease Epidemiology Collaboration (CKD-EPI) equation refit without adjustment for race. BUN/Creatinine Ratio 11.7 LAB CHEMISTRY METHOD 08/07/2024 1:57 PM [facility] Calcium 9.9 8.5 - 10.5 mg/dL LAB CHEMISTRY METHOD 08/07/2024 1:57 PM [facility] LAB Blood Venous blood specimen / Unknown Venipuncture / Unknown 08/07/2024 7:07 AM EDT 08/07/2024 10:51 AM EDT us Jemal Grigsby MD LAB BLOOD ORDERABLES Final Resul t [facility] LAB [address] [place] [address], * (ABNORMAL) Complete blood count (08/07/2024 7:07 AM EDT) [facility] WBC 7.1 4.8 - 10.8 K/mcL LAB HEMETOLOGY METHOD 08/07/2024 11:09 AM [facility] RBC 5.10 4.50 - 5.50 M/mcL LAB HEMETOLOGY METHOD 08/07/2024 11:09 AM [facility] Hemoglobin 13.3(L) 13.5 - 17.5 g/dL LAB HEMETOLOGY METHOD 08/07/2024 11:09 AM [facility] LAB Hematocrit 42.8 42.0 - 54.0 % LAB HEMETOLOGY METHOD 08/07/2024 11:09 AM [facility] LAB MCV 83.4 79.0 - 98.0 FL LAB HEMETOLOGY METHOD 08/07/2024 11:09 AM [facility] MCH 25.9(L) 27.0 - 32.0 pcg LAB HEMETOLOGY METHOD 08/07/2024 11:09 AM [facility] MCHC 31.1(L) 32.0 - 37.0 g/dL LAB HEMETOLOGY METHOD 08/07/2024 11:09 AM [facility] RDW 15.3(H) 11.0 - 15.0 % LAB HEMETOLOGY METHOD 08/07/2024 11:09 AM [facility] Platelets 450(H) 130 - 400 K/mcL LAB HEMETOLOGY METHOD 08/07/2024 11:09 AM [facility] MPV 11.6(H) 7.0 - 11.0 FL LAB HEMETOLOGY METHOD 08/07/2024 11:09 AM [facility] NRBC 0.0 <1.0 % LAB HEMETOLOGY METHOD 08/07/2024 11:09 AM EDT [facility] NRBC Absolute 0.00 <0.10 K/mcL LAB HEMETOLOGY METHOD 08/07/2024 11:09 AM EDT [facility] LAB Blood Venous blood specimen / Unknown Venipuncture / Unknown 08/07/2024 7:07 AM EDT 08/07/2024 10:51 AM EDT us Jemal Grigsby MD LAB BLOOD ORDERABLES Final Resul t [facility] [address] [place] [address], documented in this encounter Visit Diagnoses Diagnosis Type 2 diabetes mellitus without complications (CMS/HCC V24, CMS/HCC V28) documented in this encounter Care Teams Communication Assistant Relationship Specialty Start Date End Date Yassine Rodriguez MD [address] [place] [address] Dr [address] [place], [place] PCP - General 02/16/24 documented as of this encounter
--- OUTSIDE RECORDS SUMMARY | 2025-01-16 13:23 | XMS_ITS | Encounter Summary ---
Author Organization [facility] Address [address] [place] [address] Care Team Providers Care Weld Technician Name Role Phone Yassine Rodriguez MD Primary Care Provider Encounter Details Date Type Department Care Team (Late st Contact Info) Description 08/20/2024 Lab Requisition [facility] - Main Lab [address] [place] [address] Jemal Grigsby MD [address] [place] [address] [address] [facility] [phone] Type 2 diabetes mellitus without complications [...] Associated Diagnosis Comments COMPLETE BLOOD COUNT Routine 08/21/2024 8:14 AM EDT Type 2 diabetes mellitus without complications BASIC METABOLIC PANEL Routine 08/21/2024 8:14 AM EDT Type 2 diabetes mellitus without complications documented in this encounter Results * (ABNORMAL) Basic metabolic panel (08/21/2024 8:14 AM EDT) Sodium 133 133 - 145 mmol/L LAB CHEMISTRY METHOD 08/21/2024 1:06 PM EDT [facility] Potassium 4.6 3.5 - 5.5 mmol/L LAB CHEMISTRY METHOD 08/21/2024 1:06 PM [facility] Chloride 101 96 - 110 mmol/L LAB CHEMISTRY METHOD 08/21/2024 1:06 PM [facility] CO2 24 21 - 32 mmol/L LAB CHEMISTRY METHOD 08/21/2024 1:06 PM [facility] Anion Gap 8 3 - 11 LAB CHEMISTRY METHOD 08/21/2024 1:06 PM [facility] Glucose 172(H) 70 - 100 mg/dL LAB CHEMISTRY METHOD 08/21/2024 1:06 PM [facility] BUN 11 5 - 25 mg/dL LAB CHEMISTRY METHOD 08/21/2024 1:06 PM [facility] Creatinine 0.94 0.70 - 1.30 mg/dL LAB CHEMISTRY METHOD 08/21/2024 1:06 PM [facility] LAB eGFR 90 >=60 mL/min/1. 73m2 LAB CHEMISTRY METHOD 08/21/2024 1:06 PM [facility] LAB Comment:Calculation based on the Chronic Kidney Disease Epidemiology Collaboration (CKD-EPI) equation refit without adjustment for race. BUN/Creatinine Ratio 11.7 LAB CHEMISTRY METHOD 08/21/2024 1:06 PM [facility] Calcium 9.5 8.5 - 10.5 mg/dL LAB CHEMISTRY METHOD 08/21/2024 1:06 PM [facility] LAB Blood Venous blood specimen / Unknown Venipuncture / Unknown 08/21/2024 8:14 AM EDT 08/21/2024 12:18 PM EDT us Jemal Grigsby MD LAB BLOOD ORDERABLES Final Resul t [facility] LAB [address] [place] [address], [place] [phone] * (ABNORMAL) Complete blood count (08/21/2024 8:14 AM EDT) [facility] WBC 5.6 4.8 - 10.8 K/mcL LAB HEMETOLOGY METHOD 08/21/2024 12:42 PM [facility] RBC 4.90 4.50 - 5.50 M/mcL LAB HEMETOLOGY METHOD 08/21/2024 12:42 PM [facility] Hemoglobin 12.6(L) 13.5 - 17.5 g/dL LAB HEMETOLOGY METHOD 08/21/2024 12:42 PM [facility] LAB Hematocrit 40.0(L) 42.0 - 54.0 % LAB HEMETOLOGY METHOD 08/21/2024 12:42 PM [facility] LAB MCV 82.3 79.0 - 98.0 FL LAB HEMETOLOGY METHOD 08/21/2024 12:42 PM [facility] MCH 25.9(L) 27.0 - 32.0 pcg LAB HEMETOLOGY METHOD 08/21/2024 12:42 PM [facility] LAB MCHC 31.5(L) 32.0 - 37.0 g/dL LAB HEMETOLOGY METHOD 08/21/2024 12:42 PM [facility] RDW 14.9 11.0 - 15.0 % LAB HEMETOLOGY METHOD 08/21/2024 12:42 PM [facility] Platelets 318 130 - 400 K/mcL LAB HEMETOLOGY METHOD 08/21/2024 12:42 PM [facility] MPV 11.5(H) 7.0 - 11.0 FL LAB HEMETOLOGY METHOD 08/21/2024 12:42 PM [facility] NRBC 0.0 <1.0 % LAB HEMETOLOGY METHOD 08/21/2024 12:42 PM [facility] NRBC Absolute 0.00 <0.10 K/mcL LAB HEMETOLOGY METHOD 08/21/2024 12:42 PM EDT [facility] LAB Blood Venous blood specimen / Unknown Venipuncture / Unknown 08/21/2024 8:14 AM EDT 08/21/2024 12:18 PM EDT us Jemal Grigsby MD LAB BLOOD ORDERABLES Final Resul t [facility] LAB [address] [place] [address], documented in this encounter Visit Diagnoses Diagnosis Type 2 diabetes mellitus without complications (CMS/HCC V24, CMS/HCC V28) documented in this encounter Care Teams Weld Technician Relationship Specialty Start Date End Date Yassine Rodriguez MD [address] [place] [address] Dr [address] [place], [place] PCP - General 02/16/24 documented as of this encounter
--- OUTSIDE RECORDS SUMMARY | 2025-01-16 13:23 | XMS_ITS | Clinical Summary ---
Author Organization [facility] Address [address] [place] [address] Phone Care Team Providers Care Popcorn Vendor Name Role Phone Yassine Rodriguez MD Primary Care Provider Social History Tobacco Use Types Packs/Day Years Used Date Smoking Tobacco: Never Assessed Sex and Gender Information Value Date Recorded Sex Assigned at Not on file Legal Sex Male 4:29 PM EST Gender Identity Not on file Sexual Orientation Not on file Plan of Treatment Health Maintenance Due Date Last Done Comments DTaP,Tdap,and Td Vaccines (1 - Tdap) 1977 Pneumococcal Vaccine: 50+ Years (1 of 2 - PCV) 1977 Zoster Vaccines (1 of 2) 2008 COVID-19 Vaccine (1 - season) 2024 Abdominal Aortic Aneurysm (AAA) Screen 02/27/2024 Cholesterol Screening (Lipid Panel) 02/27/2024 Colorectal Cancer Screening: Colonoscopy 02/27/2024 Falls Risk Assessment 02/27/2024 Hepatitis C Screening 02/27/2024 Medicare Annual Wellness Visit 02/27/2024 Social Influencers of Health Screening 02/27/2024 Depression Screening 05/22/2024 Influenza Vaccine (#1) 2025 Hypertension/CHF/CAD Annual BMP Blood Test 09/27/2025 09/27/2024, 09/20/2024, 09/13/2024, Additional history exists RSV Immunization Adult Patients (1 - 1-dose 75+ series) 2033 HIB Vaccines Aged Out No longer eligi ble based on patient's age to complete this topic HPV Vaccines Aged Out No longer eligi ble based on patient's age to complete this topic Hepatitis A Vaccines Aged Out No long er eligible based on patient's age to complete this topic Hepatitis B Vaccines Aged Out No long er eligible based on patient's age to complete this topic IPV Vaccines Aged Out No longer eligi ble based on patient's age to complete this topic MMR Vaccines Aged Out No longer eligi ble based on patient's age to complete this topic Meningococcal ACWY Vaccine Aged Out N o longer eligible based on patient's age to complete this topic Meningococcal B Vaccine Aged Out No l onger eligible based on patient's age to complete this topic RSV Immunization Patients Under 20 months Aged Out No longer eligible based on patient's age to complete this topic Varicella Vaccines Aged Out No longer eligible based on patient's age to complete this topic Procedures Procedure Name Priority Date/Time Associated Diagnosis Comments COMPREHENSIVE METABOLIC PANEL Routine 09/27/2024 6:40 AM EDT Metabolic encephalopathy Rhabdomyolysis Unspecified convulsions ([facility] V24, [facility] V28) Chronic viral hepatitis C ([facility] V24, [facility] V28) Dysarthria and anarthria Type 2 diabetes mellitus without complications ([facility] V24, [facility] V28) from Last 3 Months or Most Recently Relevant to Health Maintenance Results * (ABNORMAL) Comprehensive metabolic panel (09/27/2024 6:40 AM EDT) Sodium 135 133 - 145 mmol/L LAB CHEMISTRY METHOD 09/27/2024 9:33 AM [facility] LAB Potassium 4.5 3.5 - 5.5 mmol/L LAB CHEMISTRY METHOD 09/27/2024 9:33 AM [facility] LAB Chloride 104 96 - 110 mmol/L LAB CHEMISTRY METHOD 09/27/2024 9:33 AM [facility] LAB CO2 26 21 - 32 mmol/L LAB CHEMISTRY METHOD 09/27/2024 9:33 AM [facility] LAB Anion Gap 5 3 - 11 LAB CHEMISTRY METHOD 09/27/2024 9:33 AM [facility] Glucose 107(H) 70 - 100 mg/dL LAB CHEMISTRY METHOD 09/27/2024 9:33 AM [facility] BUN 10 5 - 25 mg/dL LAB CHEMISTRY METHOD 09/27/2024 9:33 AM [facility] Creatinine 0.77 0.70 - 1.30 mg/dL LAB CHEMISTRY METHOD 09/27/2024 9:33 AM [facility] LAB eGFR 99 >=60 mL/min/1. 73m2 LAB CHEMISTRY METHOD 09/27/2024 9:33 AM [facility] LAB Comment:Calculation based on the Chronic Kidney Disease Epidemiology Collaboration (CKD-EPI) equation refit without adjustment for race. BUN/Creatinine Ratio 13.0 LAB CHEMISTRY METHOD 09/27/2024 9:33 AM [facility] Calcium 9.3 8.5 - 10.5 mg/dL LAB CHEMISTRY METHOD 09/27/2024 9:33 AM [facility] AST (SGOT) 11 10 - 42 unit/L LAB CHEMISTRY METHOD 09/27/2024 9:33 AM [facility] ALT (SGPT) 14 10 - 60 unit/L LAB CHEMISTRY METHOD 09/27/2024 9:33 AM [facility] Alkaline Phosphatase 91 42 - 121 unit/L LAB CHEMISTRY METHOD 09/27/2024 9:33 AM [facility] Total Protein 7.4 6.0 - 8.0 g/dL LAB CHEMISTRY METHOD 09/27/2024 9:33 AM [facility] Albumin 3.2 3.2 - 5.0 g/dL LAB CHEMISTRY METHOD 09/27/2024 9:33 AM [facility] Total Bilirubin 0.2 0.0 - 1.4 mg/dL LAB CHEMISTRY METHOD 09/27/2024 9:33 AM [facility] Blood Venous blood specimen / Unknown Venipuncture / Unknown 09/27/2024 6:40 AM EDT 09/27/2024 8:37 AM EDT us Jemal Grigsby MD LAB BLOOD ORDERABLES Final Resul t [facility] LAB [address] [place] [address], [place] [phone] from Last 3 Months or Most Recently Relevant to Health Maintenance Insurance MEDICAID - [place] MEDICARE Care Teams Popcorn Vendor Relationship Specialty Start Date End Date Yassine Rodriguez MD [address] [place] [address] [address] [place], [place] PCP - General 02/16/24
--- OUTSIDE RECORDS SUMMARY | 2025-01-16 13:23 | XMS_ITS | Encounter Summary ---
Author Organization [facility] Address [address] [place] [address] Care Team Providers Care Ski Technician Name Role Phone Yassine Rodriguez MD Primary Care Provider Encounter Details Date Type Department Care Team (Late st Contact Info) Description 09/02/2024 Lab Requisition [facility] - Main Lab [address] [facility] [place] [address] Jemal Grigsby MD [address] [place] [phone] Essential (primary) hypertension; Type 2 diabetes mellitus without complications (CMS/HCC [...] Associated Diagnosis Comments COMPLETE BLOOD COUNT Routine 09/02/2024 5:17 AM EDT Essential (primary) hypertension Type 2 diabetes mellitus without complications (CMS/HCC V24, CMS/HCC V28) COMPREHENSIVE METABOLIC PANEL Routine 09/02/2024 5:17 AM EDT Essential (primary) hypertension Type 2 diabetes mellitus without complications (CMS/HCC V24, CMS/HCC V28) documented in this encounter Results * (ABNORMAL) Comprehensive metabolic panel (09/02/2024 5:17 AM EDT) Sodium 141 133 - 145 mmol/L LAB CHEMISTRY METHOD 09/02/2024 11:41 AM [facility] LAB Potassium 4.3 3.5 - 5.5 mmol/L LAB CHEMISTRY METHOD 09/02/2024 11:41 AM [facility] LAB Chloride 106 96 - 110 mmol/L LAB CHEMISTRY METHOD 09/02/2024 11:41 AM [facility] CO2 30 21 - 32 mmol/L LAB CHEMISTRY METHOD 09/02/2024 11:41 AM [facility] Anion Gap 5 3 - 11 LAB CHEMISTRY METHOD 09/02/2024 11:41 AM [facility] Glucose 67(L) 70 - 100 mg/dL LAB CHEMISTRY METHOD 09/02/2024 11:41 AM [facility] BUN 8 5 - 25 mg/dL LAB CHEMISTRY METHOD 09/02/2024 11:41 AM [facility] Creatinine 0.75 0.70 - 1.30 mg/dL LAB CHEMISTRY METHOD 09/02/2024 11:41 AM [facility] LAB eGFR 100 >=60 mL/min/1. 73m2 LAB CHEMISTRY METHOD 09/02/2024 11:41 AM [facility] Comment:Calculation based on the Chronic Kidney Disease Epidemiology Collaboration (CKD-EPI) equation refit without adjustment for race. BUN/Creatinine Ratio 10.7 LAB CHEMISTRY METHOD 09/02/2024 11:41 AM [facility] Calcium 9.8 8.5 - 10.5 mg/dL LAB CHEMISTRY METHOD 09/02/2024 11:41 AM [facility] LAB AST (SGOT) 16 10 - 42 unit/L LAB CHEMISTRY METHOD 09/02/2024 11:41 AM [facility] ALT (SGPT) 13 10 - 60 unit/L LAB CHEMISTRY METHOD 09/02/2024 11:41 AM [facility] Alkaline Phosphatase 69 42 - 121 unit/L LAB CHEMISTRY METHOD 09/02/2024 11:41 AM EDT [facility] Total Protein 7.1 6.0 - 8.0 g/dL LAB CHEMISTRY METHOD 09/02/2024 11:41 AM EDT [facility] Albumin 3.4 3.2 - 5.0 g/dL LAB CHEMISTRY METHOD 09/02/2024 11:41 AM EDT [facility] Total Bilirubin 0.5 0.0 - 1.4 mg/dL LAB CHEMISTRY METHOD 09/02/2024 11:41 AM EDT [facility] Blood Venous blood specimen / Unknown Venipuncture / Unknown 09/02/2024 5:17 AM EDT 09/02/2024 10:00 AM EDT us Jemal Grigsby MD LAB BLOOD ORDERABLES Final Resul t [facility] [address] [place] [address], [place] [phone] * (ABNORMAL) Complete blood count (09/02/2024 5:17 AM EDT) WBC 6.1 4.8 - 10.8 K/mcL LAB HEMETOLOGY METHOD 09/02/2024 11:43 AM [facility] RBC 4.60 4.50 - 5.50 [facility] Hemoglobin 12.0(L) 13.5 - 17.5 g/dL LAB HEMETOLOGY METHOD 09/02/2024 11:43 AM [facility] Hematocrit 38.2(L) 42.0 - 54.0 % LAB HEMETOLOGY METHOD [facility]24 [facility] MCV 82.7 79.0 - 98.0 FL LAB HEMETOLOGY METHOD 09/02/2024 11:43 AM EDT [facility] MCH 26.0(L) 27.0 - 32.0 pcg LAB HEMETOLOGY METHOD 09/02/2024 11:43 AM EDT [facility] MCHC 31.4(L) 32.0 - 37.0 g/dL LAB HEMETOLOGY METHOD 09/02/2024 11:43 AM EDT [facility] RDW 15.1(H) 11.0 - 15.0 % LAB HEMETOLOGY METHOD 09/02/2024 11:43 AM EDT [facility] Platelets 295 130 - 400 K/mcL LAB HEMETOLOGY METHOD 09/02/2024 11:43 AM EDT [facility] MPV 11.5(H) 7.0 - 11.0 FL LAB HEMETOLOGY METHOD 09/02/2024 11:43 AM EDT [facility] NRBC 0.0 <1.0 % LAB HEMETOLOGY METHOD 09/02/2024 11:43 AM EDT [facility] NRBC Absolute 0.00 <0.10 K/mcL LAB HEMETOLOGY METHOD 09/02/2024 11:43 AM T [facility] Blood Venous blood specimen / Unknown Venipuncture / Unknown 09/02/2024 5:17 AM EDT 09/02/2024 10:00 AM EDT us Jemal Grigsby MD LAB BLOOD ORDERABLES Final Resul t [facility] [address] [place] [address], documented in this encounter Visit Diagnoses Diagnosis Essential (primary) hypertension Unspecified essential hypertension Type 2 diabetes mellitus without complications (CMS/HCC V24, CMS/HCC V28) documented in this encounter Care Teams Ski Technician Relationship Specialty Start Date End Date Yassine Rdoriguez MD [address] [place] [address] Dr [address] ANNE-MARIE Olivas PCP - General 02/16/24 documented as of this encounter
== END 2025-01-16 13:33 | disposition home or self-care (01) ==
LOC: HO.HMCH 12:45
PROVIDERS: PCP Internal Medicine; Visit Provider Internal Medicine
DX: Z13.9 Encounter for screening, unspecified (principal)

== ENCOUNTER → 2025-01-16 12:45 | Outpatient (BNVA) | payer MEDICARE, MEDICAID, SELFPAY | PROVIDERS: PCP Internal Medicine; Visit Provider Internal Medicine | DX: G20.A1 Parkinson's disease without dyskinesia, without mention of fluctuations (principal); E11.9 Type 2 diabetes mellitus without complications; E78.00 Pure hypercholesterolemia, unspecified; I10 Essential (primary) hypertension; B19.20 Unspecified viral hepatitis C without hepatic coma; K29.70 Gastritis, unspecified, without bleeding; R41.89 Other symptoms and signs involving cognitive functions and awareness; G47.00 Insomnia, unspecified; J30.9 Allergic rhinitis, unspecified; F25.9 Schizoaffective disorder, unspecified; F10.20 Alcohol dependence, uncomplicated; E66.3 Overweight; Z68.28 Body mass index [BMI] 28.0-28.9, adult; F17.200 Nicotine dependence, unspecified, uncomplicated; Z71.6 Tobacco abuse counseling; Z71.3 Dietary counseling and surveillance | CPT/HCPCS: 83036; 96127; 99212 ==

== ENCOUNTER → 2025-01-16 23:59 | Outpatient (BNV) | payer MEDICARE, MEDICAID, SELFPAY | PROVIDERS: PCP Internal Medicine; Visit Provider Internal Medicine | DX: G20.A1 Parkinson's disease without dyskinesia, without mention of fluctuations (principal); G93.41 Metabolic encephalopathy; E11.9 Type 2 diabetes mellitus without complications; I10 Essential (primary) hypertension | CPT/HCPCS: G0180 ==

== ENCOUNTER 2025-04-22 15:31 | Outpatient (AMB) | payer MEDICARE, MEDICAID, SELFPAY ==
[2025-04-22 15:39] VITALS: BP 138/84; PULSE 91; O2SAT 97; BMI 30.4
--- NOTE | 2025-04-22 15:45 | A.OFFVIS_ITS ---
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 hyperplasia with lower urinary tract symptoms, R32 - Unspecified urinary incontinence, R35.0 - Frequency of micturition Medications: New [ADULT PULL UPS (large)] As directed 100 ea 12RF urinary incontinence G20.A1 - Parkinson's disease without dyskinesia, without mention of fluctuations, R32 - Unspecified urinary incontinence [ADULT PULL UPS (large)] As directed 100 ea 12RF urinary incontinence G20.A1 - Parkinson's disease without dyskinesia, without mention of fluctuations, R32 - Unspecified urinary incontinence Changed From carbidopa-levodopa 25-100 mg 2 tablets at 8 AM, 1 tablet at 12 noon and 1 tablet at 8 PM DAILY; 30 days 120 tabs 3RF To carbidopa-levodopa 25-100 mg 2 tablets at 8 AM, 1 tablet at 12 noon, 1 tablet at 4 PM and 1 tablet at 8 PM DAILY (TOTAL of FIVE TABLETS a DAY) 150 tabs 3RF 30 days From carbidopa-levodopa 25-100 mg 1 tab PO BID 90 tabs 0RF To carbidopa-levodopa 25-100 mg 2 tablets at 8 AM, 1 tablet at 12 noon and 1 tablet at 8 PM DAILY; 30 days 120 tabs 3RF Quality Reporting (2019) Depression/Bipolar (159/160/161/177) PHQ-9: Total score: 17 Coding Level of Care Code Medicare First (G0438) Est Pt Level 4 (26033) Diagnoses Medicare annual wellness visit, initial Z00.00 Parkinson's disease without fluctuating manifestations, unspecified whether dyskinesia present G20.A1 Dyskinesia presence: unspecified whether dyskinesia Fluctuating manifestations: without fluctuating manifestations Type 2 diabetes mellitus without complication, without long-term current use of insulin E11.9 Diabetes mellitus type: type 2 Diabetes mellitus local company intermodal truck driver insulin use: without local company intermodal truck driver use Diabetes mellitus complication status: without complication Pure hypercholesterolemia E78.00 Benign essential hypertension I10 Hepatitis C virus infection without hepatic coma, unspecified chronicity B19.20 Viral hepatitis chronicity: unspecified Hepatic coma status: without hepatic coma Gastritis without bleeding, unspecified chronicity, unspecified gastritis type K29.70 Gastritis type: unspecified gastritis Chronicity: unspecified Gastritis bleeding: without bleeding Allergic rhinitis, unspecified seasonality, unspecified trigger J30.9 Allergic rhinitis trigger: unspecified Allergic rhinitis seasonality: unspecified Cognitive impairment R41.89 Benign prostatic hyperplasia with urinary frequency N40.1; R35.0 Mixed stress and urge urinary incontinence N39.46 Urinary Incontinence type: mixed stress and urge incontinence Insomnia, unspecified type G47.00 Insomnia type: unspecified Schizoaffective disorder, unspecified type F25.9 Schizoaffective disorder type: unspecified Alcoholism F10.20 Smoker F17.200 Obesity (BMI 30-39.9) E66.9 Colon cancer screening Z12.11 CPT Codes Advance Care Planning - Time spent: 1-15 minutes, not on file ([id number]) Additional Codes PHQ-9 - 53796 - PHQ-9 Billing: Yes ([id number]) Advance Care Planning Advance Care Planning discussion: Exists, not on file (patient has HCP and MOLST forms at home - niece will bring in to scan ALFRED) Date of discussion: 04/22/25 Who was present: patient, niece, PCP Time spent: 1-15 minutes, not on file
--- OUTSIDE RECORDS SUMMARY | 2025-04-22 17:05 | XMS_ITS | Encounter Summary ---
Author Organization [facility] Address [address] [place] [address] Care Team Providers Care Wound Care Nurse Name Role Phone Yassine Rodriguez MD Primary Care Provider Encounter Details Date Type Department Care Team (Late st Contact Info) Description 09/05/2024 Lab Requisition [facility] - Main Lab [address] [facility] [place] [address] Jemal Grigsby MD [address] [place] [phone] Metabolic encephalopathy; Rhabdomyolysis; Unspecified convulsions (CMS/HCC [...] LAB CHEMISTRY METHOD 09/06/2024 11:05 AM EDT [facility] Blood Venous blood specimen / Unknown Venipuncture / Unknown 09/06/2024 7:19 AM EDT 09/06/2024 9:08 AM EDT Jemal Grigsby MD LAB BLOOD ORDERABLES Final Resul t Performing Organization Address [facility]/ZIP Co de Phone Number [facility] [address] [place] [address], * C-reactive protein (09/06/2024 7:19 AM EDT) Pathologist [facility] C-Reactive Protein <0.29 <=0.50 mg/dL LAB CHEMISTRY METHOD 09/06/2024 10:51 AM EDT [facility] Blood Venous blood specimen / Unknown Venipuncture / Unknown 09/06/2024 7:19 AM EDT 09/06/2024 9:08 AM EDT Jemal Grigsby MD LAB BLOOD ORDERABLES Final Resul t Performing Organization Address City/[facility]/ZIP Co de Phone Number [facility] [address] [place] [address], * Comprehensive metabolic panel (09/06/2024 7:19 AM EDT) Pathologist [facility] Sodium 139 133 - 145 mmol/L LAB CHEMISTRY METHOD 09/06/2024 11:06 AM EDT [facility] Potassium 4.2 3.5 - 5.5 mmol/L LAB CHEMISTRY METHOD 09/06/2024 11:[address] [facility] Chloride 103 96 - 110 mmol/L LAB CHEMISTRY METHOD 09/06/2024 11:[address] [facility] CO2 27 21 - 32 mmol/L LAB CHEMISTRY METHOD 09/06/2024 11:[address] [facility] Anion Gap 9 3 - 11 LAB CHEMISTRY METHOD 09/06/2024 11:[address] [facility] Glucose 99 70 - 100 mg/dL LAB CHEMISTRY METHOD 09/06/2024 11:[address] [facility] BUN 13 5 - 25 mg/dL LAB CHEMISTRY METHOD 09/06/2024 11:[address] [facility] Creatinine 0.84 0.70 - 1.30 mg/dL LAB CHEMISTRY METHOD 09/06/2024 11:[address] [facility] eGFR 97 >=60 mL/min/1. 73m2 LAB CHEMISTRY METHOD 09/06/2024 11:[address] [facility] Comment:Calculation based on the Chronic Kidney Disease Epidemiology Collaboration (CKD-EPI) equation refit without adjustment for race. BUN/Creatinine Ratio 15.5 LAB CHEMISTRY METHOD 09/06/2024 11:[address] [facility] Calcium 10.1 8.5 - 10.5 mg/dL LAB CHEMISTRY METHOD 09/06/2024 11:[address] [facility] AST (SGOT) 17 10 - 42 unit/L LAB CHEMISTRY METHOD 09/06/2024 11:[address] [facility] ALT (SGPT) 18 10 - 60 unit/L LAB CHEMISTRY METHOD 09/06/2024 11:[address] [facility] Alkaline Phosphatase 85 42 - 121 unit/L LAB CHEMISTRY METHOD 09/06/2024 11:[address] [facility] Total Protein 8.0 6.0 - 8.0 g/dL LAB CHEMISTRY METHOD 09/06/2024 11:[address] [facility] Albumin 3.9 3.2 - 5.0 g/dL LAB CHEMISTRY METHOD 09/06/2024 11:[address] [facility] Total Bilirubin 0.5 0.0 - 1.4 mg/dL LAB CHEMISTRY METHOD 09/06/2024 11:[address] [facility] Blood Venous blood specimen / Unknown Venipuncture / Unknown 09/06/2024 7:19 AM EDT 09/06/2024 9:08 AM EDT us Jemal Grigsby MD LAB BLOOD ORDERABLES Final Resul t [facility] [address] [place] [address], * (ABNORMAL) Complete blood count (09/06/2024 7:19 AM EDT) WBC 8.0 4.8 - 10.8 K/mcL LAB HEMETOLOGY METHOD 09/06/2024 10:[address] [facility] RBC 5.20 4.50 - 5.50 M/mcL LAB HEMETOLOGY METHOD 09/06/2024 10:[address] [facility] Hemoglobin 13.4(L) 13.5 - 17.5 g/dL LAB HEMETOLOGY METHOD 09/06/2024 10:[address] [facility] Hematocrit 43.4 42.0 - 54.0 % LAB HEMETOLOGY METHOD 09/06/2024 10:[address] [facility] MCV 83.3 79.0 - 98.0 FL LAB HEMETOLOGY METHOD 09/06/2024 10:[address] [facility] MCH 25.7(L) 27.0 - 32.0 pcg LAB HEMETOLOGY METHOD 09/06/2024 10:10 AM EDT [facility] MCHC 30.9(L) 32.0 - 37.0 g/dL LAB HEMETOLOGY METHOD 09/06/2024 10:10 AM EDT [facility] RDW 14.9 11.0 - 15.0 % LAB HEMETOLOGY METHOD 09/06/2024 10:10 AM EDT [facility] Platelets 334 130 - 400 K/mcL LAB HEMETOLOGY METHOD 09/06/2024 10:10 AM EDT [facility] MPV 11.3(H) 7.0 - 11.0 FL LAB HEMETOLOGY METHOD 09/06/2024 10:10 AM EDT [facility] NRBC 0.0 <1.0 % LAB HEMETOLOGY METHOD 09/06/2024 10:10 AM EDT [facility] NRBC Absolute 0.00 <0.10 K/mcL LAB HEMETOLOGY METHOD 09/06/2024 10:10 AM EDT [facility] Blood Venous blood specimen / Unknown Venipuncture / Unknown 09/06/2024 7:19 AM EDT 09/06/2024 9:08 AM EDT us Jemal Grigsby MD LAB BLOOD ORDERABLES Final Resul t [facility] [address] [place] [address], documented in this encounter Visit Diagnoses Diagnosis Metabolic encephalopathy Rhabdomyolysis Unspecified convulsions (CMS/HCC V24, CMS/HCC V28) documented in this encounter Care Teams Wound Care Nurse Relationship Specialty Start Date End Date Yassine Rodriguez MD [address] [place] [address] Dr Ramos [place]eba [place] PCP - General 02/16/24 documented as of this encounter
--- OUTSIDE RECORDS SUMMARY | 2025-04-22 17:05 | XMS_ITS | Encounter Summary ---
Author Organization [facility] Address [address] [place] [address] Care Team Providers Care Oven Unloader Name Role Phone Yassine Rodriguez MD Primary Care Provider Encounter Details Date Type Department Care Team (Late st Contact Info) Description 08/22/2024 Lab Requisition [facility] - Main Lab [address] [facility] [place] [address] Jemal Grigsby MD [address] [place] [phone] Metabolic encephalopathy; Rhabdomyolysis; Unspecified convulsions (CMS/HCC [...] * C-reactive protein (08/23/2024 8:09 AM EDT) [facility] C-Reactive Protein <0.29 <=0.50 mg/dL LAB CHEMISTRY METHOD 08/23/2024 11:59 AM [facility] Blood Venous blood specimen / Unknown Venipuncture / Unknown 08/23/2024 8:09 AM EDT 08/23/2024 10:41 AM EDT us Jemal Grigsby MD LAB BLOOD ORDERABLES Final Resul t [facility] [address] [place] [address], * (ABNORMAL) Comprehensive metabolic panel (08/23/2024 8:09 AM EDT) [facility] Sodium 136 133 - 145 mmol/L LAB CHEMISTRY METHOD 08/23/2024 11:56 AM [facility] Potassium 4.3 3.5 - 5.5 mmol/L LAB CHEMISTRY METHOD 08/23/2024 11:56 AM [facility] Chloride 101 96 - 110 mmol/L LAB CHEMISTRY METHOD 08/23/2024 11:56 AM [facility] CO2 26 21 - 32 mmol/L LAB CHEMISTRY METHOD 08/23/2024 11:56 AM [facility] Anion Gap 9 3 - 11 LAB CHEMISTRY METHOD 08/23/2024 11:56 AM [facility] Glucose 112(H) 70 - 100 mg/dL LAB CHEMISTRY METHOD 08/23/2024 11:56 AM [facility] BUN 10 5 - 25 mg/dL LAB CHEMISTRY METHOD 08/23/2024 11:56 AM [facility] Creatinine 0.82 0.70 - 1.30 mg/dL LAB CHEMISTRY METHOD 08/23/2024 11:56 AM [facility] eGFR 97 >=60 mL/min/1. 73m2 LAB CHEMISTRY METHOD 08/23/2024 11:56 AM [facility] Comment:Calculation based on the Chronic Kidney Disease Epidemiology Collaboration (CKD-EPI) equation refit without adjustment for race. BUN/Creatinine Ratio 12.2 LAB CHEMISTRY METHOD 08/23/2024 11:56 AM [facility] Calcium 9.7 8.5 - 10.5 mg/dL LAB CHEMISTRY METHOD 08/23/2024 11:56 AM [facility] AST (SGOT) 14 10 - 42 unit/L LAB CHEMISTRY METHOD 08/23/2024 11:56 AM [facility] ALT (SGPT) 22 10 - 60 unit/L LAB CHEMISTRY METHOD 08/23/2024 11:56 AM [facility] Alkaline Phosphatase 96 42 - 121 unit/L LAB CHEMISTRY METHOD 08/23/2024 11:56 AM [facility] Total Protein 7.8 6.0 - 8.0 g/dL LAB CHEMISTRY METHOD 08/23/2024 11:56 AM [facility] Albumin 3.7 3.2 - 5.0 g/dL LAB CHEMISTRY METHOD 08/23/2024 11:56 AM [facility] Total Bilirubin 0.3 0.0 - 1.4 mg/dL LAB CHEMISTRY METHOD 08/23/2024 11:56 AM [facility] Blood Venous blood specimen / Unknown Venipuncture / Unknown 08/23/2024 8:09 AM EDT 08/23/2024 10:41 AM EDT us Jemal Grigsby MD LAB BLOOD ORDERABLES Final Resul t [facility] [address] [place] [address], * (ABNORMAL) Complete blood count (08/23/2024 8:09 AM EDT) [facility] WBC 6.9 4.8 - 10.8 K/mcL LAB HEMETOLOGY METHOD 08/23/2024 11:25 AM [facility] RBC 5.00 4.50 - 5.50 M/mcL LAB HEMETOLOGY METHOD 08/23/2024 11:25 AM [facility] Hemoglobin 12.8(L) 13.5 - 17.5 g/dL LAB HEMETOLOGY METHOD 08/23/2024 11:25 AM [facility] Hematocrit 40.7(L) 42.0 - 54.0 % LAB HEMETOLOGY METHOD 08/23/2024 11:25 AM [facility] MCV 82.1 79.0 - 98.0 FL LAB HEMETOLOGY METHOD 08/23/2024 11:25 AM [facility] MCH 25.8(L) 27.0 - 32.0 pcg LAB HEMETOLOGY METHOD 08/23/2024 11:25 AM [facility] MCHC 31.4(L) 32.0 - 37.0 g/dL LAB HEMETOLOGY METHOD 08/23/2024 11:25 AM [facility] RDW 15.0 11.0 - 15.0 % LAB HEMETOLOGY METHOD 08/23/2024 11:25 AM [facility] Platelets 326 130 - 400 K/mcL LAB HEMETOLOGY METHOD 08/23/2024 11:25 AM [facility] MPV 10.7 7.0 - 11.0 FL LAB HEMETOLOGY METHOD 08/23/2024 11:25 AM [facility] NRBC 0.0 <1.0 % LAB HEMETOLOGY METHOD 08/23/2024 11:25 AM [facility] NRBC Absolute 0.00 <0.10 K/mcL LAB HEMETOLOGY METHOD 08/23/2024 11:25 AM EDT [facility] Blood Venous blood specimen / Unknown Venipuncture / Unknown 08/23/2024 8:09 AM EDT 08/23/2024 10:39 AM EDT us Jemal Grigsby MD LAB BLOOD ORDERABLES Final Resul t [facility] [address] [place] [address], documented in this encounter Visit Diagnoses Diagnosis Metabolic encephalopathy Rhabdomyolysis Unspecified convulsions (CMS/HCC V24, CMS/HCC V28) documented in this encounter Care Teams Oven Unloader Relationship Specialty Start Date End Date Yassine Rodriguez MD [address] [place] [address] Dr [address] [place], [place] PCP - General 02/16/24 documented as of this encounter
--- OUTSIDE RECORDS SUMMARY | 2025-04-22 17:05 | XMS_ITS | Encounter Summary ---
Author Organization [facility] Address [address] [place] [address] Care Team Providers Care Platform Power Technician Name Role Phone Yassine Rodriguez MD Primary Care Provider Encounter Details Date Type Department Care Team (Late st Contact Info) Description 08/13/[address] [facility] - Main Lab [address] [place] [address] Jemal Grigsby MD [address] [place] [phone] Type 2 diabetes mellitus without complications [...] mg/dL LAB CHEMISTRY METHOD 08/14/2024 11:56 AM [facility] Blood Venous blood specimen / Unknown Venipuncture / Unknown 08/14/2024 7:32 AM EDT 08/14/2024 10:39 AM EDT us Jemal Grigsby MD LAB BLOOD ORDERABLES Final Resul t [facility] [address] [place] [address], [place] [phone] * Basic metabolic panel (08/14/2024 7:32 AM EDT) [facility] Sodium 134 133 - 145 mmol/L LAB CHEMISTRY METHOD 08/14/2024 11:56 AM [facility] Potassium 4.4 3.5 - 5.5 mmol/L LAB CHEMISTRY METHOD 08/14/2024 11:56 AM [facility] Chloride 102 96 - 110 mmol/L LAB CHEMISTRY METHOD 08/14/2024 11:56 AM [facility] CO2 28 21 - 32 mmol/L LAB CHEMISTRY METHOD 08/14/2024 11:56 AM [facility] Anion Gap 4 3 - 11 LAB CHEMISTRY METHOD 08/14/2024 11:56 AM [facility] Glucose 79 70 - 100 mg/dL LAB CHEMISTRY METHOD 08/14/2024 11:56 AM [facility] BUN 11 5 - 25 mg/dL LAB CHEMISTRY METHOD 08/14/2024 11:56 AM [facility] Creatinine 0.90 0.70 - 1.30 mg/dL LAB CHEMISTRY METHOD 08/14/2024 11:56 AM [facility] eGFR 95 >=60 mL/min/1. 73m2 LAB CHEMISTRY METHOD 08/14/2024 11:56 AM EDT [facility] Comment:Calculation based on the Chronic Kidney Disease Epidemiology Collaboration (CKD-EPI) equation refit without adjustment for race. BUN/Creatinine Ratio 12.2 LAB CHEMISTRY METHOD 08/14/2024 11:56 AM EDT [facility] Calcium 9.3 8.5 - 10.5 mg/dL LAB CHEMISTRY METHOD 08/14/2024 11:56 AM T [facility] Blood Venous blood specimen / Unknown Venipuncture / Unknown 08/14/2024 7:32 AM EDT 08/14/2024 10:39 AM EDT us Jemal Grigsby MD LAB BLOOD ORDERABLES Final Resul t [facility] [address] [place] [address], * (ABNORMAL) Complete blood count (08/14/2024 7:32 AM EDT) WBC 6.1 4.8 - 10.8 K/mcL LAB HEMETOLOGY METHOD 08/14/2024 10:58 AM [facility] RBC 4.70 4.50 - 5.50 M/mcL LAB HEMETOLOGY METHOD 08/14/2024 10:58 AM [facility] Hemoglobin 12.1(L) 13.5 - 17.5 g/dL LAB HEMETOLOGY METHOD 08/14/2024 10:58 AM T [facility] Hematocrit 38.9(L) 42.0 - 54.0 % LAB HEMETOLOGY METHOD 08/14/2024 10:58 AM T [facility] MCV 83.7 79.0 - 98.0 FL LAB HEMETOLOGY METHOD 08/14/2024 10:58 AM [facility] MCH 26.0(L) 27.0 - 32.0 pcg LAB HEMETOLOGY METHOD 08/14/2024 10:58 AM EDT [facility] MCHC 31.1(L) 32.0 - 37.0 g/dL LAB HEMETOLOGY METHOD 08/14/2024 10:58 AM EDT [facility] RDW 15.4(H) 11.0 - 15.0 % LAB HEMETOLOGY METHOD 08/14/2024 10:58 AM EDT [facility] Platelets 399 130 - 400 K/mcL LAB HEMETOLOGY METHOD 08/14/2024 10:58 AM EDT [facility] MPV 11.5(H) 7.0 - 11.0 FL LAB HEMETOLOGY METHOD 08/14/2024 10:58 AM EDT [facility] NRBC 0.0 <1.0 % LAB HEMETOLOGY METHOD 08/14/2024 10:58 AM EDT [facility] NRBC Absolute 0.00 <0.10 K/mcL LAB HEMETOLOGY METHOD 08/14/2024 10:58 AM EDT [facility] Blood Venous blood specimen / Unknown Venipuncture / Unknown 08/14/2024 7:32 AM EDT 08/14/2024 10:39 AM EDT us Jemal Grigsby MD LAB BLOOD ORDERABLES Final Resul t [facility] [address] [place] [address], documented in this encounter Visit Diagnoses Diagnosis Type 2 diabetes mellitus without complications (CMS/HCC V24, CMS/HCC V28) documented in this encounter Care Teams Platform Power Technician Relationship Specialty Start Date End Date Yassine Rodriguez MD [address] [place] [address] Dr Ramos [address] [place] PCP - General 02/16/24 documented as of this encounter
--- OUTSIDE RECORDS SUMMARY | 2025-04-22 17:05 | XMS_ITS | Encounter Summary ---
Author Organization [facility] Address [address] [place] [address] Care Team Providers Care Pensionholder Information Clerk Name Role Phone Yassine Rodriguez MD Primary Care Provider [phone] Encounter Details Date Type Department Care Team (Late st Contact Info) Description 09/19/2024 Lab Requisition [facility] - Main Lab 299 [facility] [place] [address] Jemal Grigsby MD [address] [place] [phone] Metabolic encephalopathy; Rhabdomyolysis; Unspecified convulsions (CMS/HCC [...] LAB CHEMISTRY METHOD 09/20/2024 2:00 PM EDT [facility] Comment:Results verified by repeat testing Blood Venous blood specimen / Unknown 09/20/2024 7:32 AM EDT 09/20/2024 11:10 AM EDT us Jemal Grigsby MD LAB BLOOD ORDERABLES Final Resul t [facility] [address] [place] [address], [place] [phone] * (ABNORMAL) C-reactive protein (09/20/2024 7:32 AM EDT) C-Reactive Protein 14.80(H) <=0.50 mg/dL LAB CHEMISTRY METHOD 09/20/2024 2:00 PM EDT [facility] Comment:Results verified by repeat testing Blood Venous blood specimen / Unknown 09/20/2024 7:32 AM EDT 09/20/2024 11:10 AM EDT us Jemal Grisgby MD LAB BLOOD ORDERABLES Final Resul t [facility] [address] [place] [address], [place] [phone] * (ABNORMAL) Comprehensive metabolic panel (09/20/2024 7:32 AM EDT) [facility] Sodium 131(L) 133 - 145 mmol/L LAB CHEMISTRY METHOD 09/20/2024 1:24 PM [facility] Potassium 4.1 3.5 - 5.5 mmol/L LAB CHEMISTRY METHOD 09/20/2024 1:24 PM [facility] Chloride 96 96 - 110 mmol/L LAB CHEMISTRY METHOD 09/20/2024 1:24 PM [facility] CO2 23 21 - 32 mmol/L LAB CHEMISTRY METHOD 09/20/2024 1:24 PM [facility] Anion Gap 12(H) 3 - 11 LAB CHEMISTRY METHOD 09/20/2024 1:24 PM [facility] Glucose 86 70 - 100 mg/dL LAB CHEMISTRY METHOD 09/20/2024 1:24 PM [facility] BUN 13 5 - 25 mg/dL LAB CHEMISTRY METHOD 09/20/2024 1:24 PM [facility] Creatinine 0.89 0.70 - 1.30 mg/dL LAB CHEMISTRY METHOD 09/20/2024 1:24 PM [facility] eGFR 95 >=60 mL/min/1. 73m2 LAB CHEMISTRY METHOD 09/20/2024 1:24 PM EDT [facility] Comment:Calculation based on the Chronic Kidney Disease Epidemiology Collaboration (CKD-EPI) equation refit without adjustment for race. BUN/Creatinine Ratio 14.6 LAB CHEMISTRY METHOD 09/20/2024 1:24 PM EDT [facility] Calcium 9.0 8.5 - 10.5 mg/dL LAB CHEMISTRY METHOD 09/20/2024 1:24 PM [facility] AST (SGOT) 15 10 - 42 unit/L LAB CHEMISTRY METHOD 09/20/2024 1:24 PM [facility] ALT (SGPT) 12 10 - 60 unit/L LAB CHEMISTRY METHOD 09/20/2024 1:24 PM [facility] Alkaline Phosphatase 71 42 - 121 unit/L LAB CHEMISTRY METHOD 09/20/2024 1:24 PM [facility] Total Protein 7.4 6.0 - 8.0 g/dL LAB CHEMISTRY METHOD 09/20/2024 1:24 PM [facility] Albumin 3.5 3.2 - 5.0 g/dL LAB CHEMISTRY METHOD 09/20/2024 1:24 PM [facility] Total Bilirubin 0.6 0.0 - 1.4 mg/dL LAB CHEMISTRY METHOD 09/20/2024 1:24 PM [facility] Blood Venous blood specimen / Unknown 09/20/2024 7:32 AM EDT 09/20/2024 11:10 AM EDT us Jemal Grigsby MD LAB BLOOD ORDERABLES Final Resul t [facility] [address] [place] [address], [place] [phone] * (ABNORMAL) Complete blood count (09/20/2024 7:32 AM EDT) WBC 11.5(H) 4.8 - 10.8 K/[facility] LAB HEMETOLOGY METHOD 09/20/2024 11:31 AM [facility] RBC 4.70 4.50 - 5.50 M/[facility] LAB HEMETOLOGY METHOD 09/20/2024 11:31 AM [facility] Hemoglobin 12.1(L) 13.5 - 17.5 g/dL LAB HEMETOLOGY METHOD 09/20/2024 11:31 AM [facility] Hematocrit 38.1(L) 42.0 - 54.0 % LAB HEMETOLOGY METHOD 09/20/2024 11:31 AM [facility] MCV 81.2 79.0 - 98.0 FL LAB HEMETOLOGY METHOD 09/20/2024 11:31 AM [facility] MCH 25.8(L) 27.0 - 32.0 pcg LAB HEMETOLOGY METHOD 09/20/2024 11:31 AM [facility] MCHC 31.8(L) 32.0 - 37.0 g/dL LAB HEMETOLOGY METHOD 09/20/2024 11:31 AM [facility] RDW 15.1(H) 11.0 - 15.0 % LAB HEMETOLOGY METHOD 09/20/2024 11:31 AM [facility] Platelets 275 130 - 400 K/[facility] LAB HEMETOLOGY METHOD 09/20/2024 11:31 AM [facility] MPV 11.2(H) 7.0 - 11.0 FL LAB HEMETOLOGY METHOD 09/20/2024 11:31 AM [facility] NRBC 0.0 <1.0 % LAB HEMETOLOGY METHOD 09/20/2024 11:31 AM [facility] NRBC Absolute 0.00 <0.10 K/[facility] LAB HEMETOLOGY METHOD 09/20/2024 11:31 AM EDT [facility] ([facility]) [facility] Blood Venous blood specimen / Unknown 09/20/2024 7:32 AM EDT 09/20/2024 11:10 AM EDT us Jemal Grigsby MD LAB BLOOD ORDERABLES Final Resul t [facility] ([facility] [address] [place] [address], documented in this encounter Visit Diagnoses Diagnosis Metabolic encephalopathy Rhabdomyolysis Unspecified convulsions (CMS/HCC V24, CMS/HCC V28) Chronic viral hepatitis C (CMS/HCC V24, [facility]/HCC V28) Chronic hepatitis C without mention of hepatic coma Dysarthria and anarthria Type 2 diabetes mellitus without complications (CMS/HCC V24, [facility]/HCC V28) documented in this encounter Care Teams Pensionholder Information Clerk Relationship Specialty Start Date End Date Yassine Rodriguez MD [address] [place] [address] Dr [address] [place] PCP - General 02/16/24 documented as of this encounter
--- OUTSIDE RECORDS SUMMARY | 2025-04-22 17:06 | XMS_ITS | Encounter Summary ---
Author Organization [facility] Address [address] [place] [address] Care Team Providers Care Tear Down Worker Name Role Phone Yassine Rodriguez MD Primary Care Provider [phone] Encounter Details Date Type Department Care Team (Late st Contact Info) Description 08/02/2024 Lab Requisition [facility] - Main Lab 299 [facility] [place] [address] Jemal Grigsby MD [address] [place] [phone] Type 2 diabetes mellitus without complications [...] (ABNORMAL) Hemoglobin A1c (08/02/2024 8:53 AM EDT) [facility] Hemoglobin A1C 6.6(H) <6.5 % LAB CHEMISTRY METHOD 08/02/2024 1:31 PM EDT [facility] Mean Bld Glu Estim. 143 mg/dL LAB CHEMISTRY METHOD 08/02/2024 1:31 PM T [facility] Blood Venous blood specimen / Unknown Venipuncture / Unknown 08/02/2024 8:53 AM EDT 08/02/2024 10:24 AM EDT us Jemal Grigsby MD LAB BLOOD ORDERABLES Final Resul t [facility] [address] [place] [address], [place] [phone] * (ABNORMAL) Comprehensive metabolic panel (08/02/2024 8:53 AM EDT) [facility] Sodium 142 133 - 145 mmol/L LAB CHEMISTRY METHOD 08/02/2024 11:[address] [facility] Potassium 4.1 3.5 - 5.5 mmol/L LAB CHEMISTRY METHOD 08/02/2024 11:[address] [facility] Chloride 107 96 - 110 mmol/L LAB CHEMISTRY METHOD 08/02/2024 11:[address] [facility] CO2 26 21 - 32 mmol/L LAB CHEMISTRY METHOD 08/02/2024 11:[address] [facility] Anion Gap 9 3 - 11 LAB CHEMISTRY METHOD 08/02/2024 11:[address] [facility] Glucose 110(H) 70 - 100 mg/dL LAB CHEMISTRY METHOD 08/02/2024 11:[address] [facility] BUN 25 5 - 25 mg/dL LAB CHEMISTRY METHOD 08/02/2024 11:[address] [facility] Creatinine 0.80 0.70 - 1.30 mg/dL LAB CHEMISTRY METHOD 08/02/2024 11:[address] [facility] eGFR 98 >=60 mL/min/1. 73m2 LAB CHEMISTRY METHOD 08/02/2024 11:[address] [facility] Comment:Calculation based on the Chronic Kidney Disease Epidemiology Collaboration (CKD-EPI) equation refit without adjustment for race. BUN/Creatinine Ratio 31.3 LAB CHEMISTRY METHOD 08/02/2024 11:[address] [facility] Calcium 9.0 8.5 - 10.5 mg/dL LAB CHEMISTRY METHOD 08/02/2024 11:[address] [facility] AST (SGOT) 27 10 - 42 unit/L LAB CHEMISTRY METHOD 08/02/2024 11:[address] [facility] ALT (SGPT) 25 10 - 60 unit/L LAB CHEMISTRY METHOD 08/02/2024 11:[address] [facility] Alkaline Phosphatase 70 42 - 121 unit/L LAB CHEMISTRY METHOD 08/02/2024 11:[address] [facility] Total Protein 7.1 6.0 - 8.0 g/dL LAB CHEMISTRY METHOD 08/02/2024 11:[address] [facility] Albumin 3.2 3.2 - 5.0 g/dL LAB CHEMISTRY METHOD 08/02/2024 11:[address] [facility] Total Bilirubin 0.5 0.0 - 1.4 mg/dL LAB CHEMISTRY METHOD 08/02/2024 11:[address] [facility] Blood Venous blood specimen / Unknown Venipuncture / Unknown 08/02/2024 8:53 AM EDT 08/02/2024 10:24 AM EDT us Jemal Grigsby MD LAB BLOOD ORDERABLES Final Resul t [facility] [address] [place] [address], [place] [phone] * (ABNORMAL) Complete blood count (08/02/2024 8:53 AM EDT) [facility] WBC 8.9 4.8 - 10.8 K/mcL LAB HEMETOLOGY METHOD 08/02/2024 11:[address] [facility] RBC 5.20 4.50 - 5.50 M/mcL LAB HEMETOLOGY METHOD 08/02/2024 11:[address] [facility] Hemoglobin 13.3(L) 13.5 - 17.5 g/dL LAB HEMETOLOGY METHOD 08/02/2024 11:[address] [facility] Hematocrit 42.0 42.0 - 54.0 % LAB HEMETOLOGY METHOD 08/02/2024 11:[address] [facility] MCV 81.4 79.0 - 98.0 FL LAB HEMETOLOGY METHOD 08/02/2024 11:[address] [facility] MCH 25.8(L) 27.0 - 32.0 pcg LAB HEMETOLOGY METHOD 08/02/2024 11:[address] [facility] MCHC 31.7(L) 32.0 - 37.0 g/dL LAB HEMETOLOGY METHOD 08/02/2024 11:[address] [facility] RDW 15.2(H) 11.0 - 15.0 % LAB HEMETOLOGY METHOD 08/02/2024 11:[address] [facility] Platelets 301 130 - 400 K/mcL LAB HEMETOLOGY METHOD 08/02/2024 11:[address] [facility] MPV 11.7(H) 7.0 - 11.0 FL LAB HEMETOLOGY METHOD 08/02/2024 11:[address] [facility] NRBC 0.0 <1.0 % LAB HEMETOLOGY METHOD 08/02/2024 11:16 AM EDT [facility] NRBC Absolute 0.00 <0.10 K/mcL LAB HEMETOLOGY METHOD 08/02/2024 11:16 AM EDT [facility] Blood Venous blood specimen / Unknown Venipuncture / Unknown 08/02/2024 8:53 AM EDT 08/02/2024 10:24 AM EDT us Jemal Grigsby MD LAB BLOOD ORDERABLES Final Resul t [facility] [address] [place] [address], documented in this encounter Visit Diagnoses Diagnosis Type 2 diabetes mellitus without complications (CMS/HCC V24, CMS/HCC V28) documented in this encounter Care Teams Tear Down Worker Relationship Specialty Start Date End Date Yassine Rodriguez MD [address] [place] [address] Dr [address] [place] PCP - General 02/16/24 documented as of this encounter
--- OUTSIDE RECORDS SUMMARY | 2025-04-22 17:06 | XMS_ITS | Clinical Summary ---
Author Organization [facility] Address [address] [place] [address] Phone Care Team Providers Care Kiln Feeder Name Role Phone Yassine Rodriguez MD Primary Care Provider Social History Tobacco Use Types Packs/Day Years Used Date Smoking Tobacco: Never Assessed Sex and Gender Information Value Date Recorded Sex Assigned at Not on file Legal Sex Male 4:29 PM EST Gender Identity Not on file Sexual Orientation Not on file Plan of Treatment Health Maintenance Due Date Last Done Comments Colorectal Cancer Screening: Colonoscopy 1958 DTaP,Tdap,and Td Vaccines (1 - Tdap) 1977 Pneumococcal Vaccine: 50+ Ye ars (1 of 2 - PCV) 1977 Zoster Vaccines (1 of 2) 2008 Abdominal Aortic Aneurysm (A AA) Screen 02/27/2024 Cholesterol Screening (Lipid Panel) 02/27/2024 Falls Risk Assessment 02/27/2024 Hepatitis C Screening 02/27/2024 Medicare Annual Wellness Visit 02/27/2024 Social Influencers of Health Screening 02/27/2024 Depression Screening 05/22/2024 COVID-19 Vaccine ( - 2024-2 6 season) 2025 Influenza Vaccine (#1) 2025 RSV Immunization Adult Patie nts (1 - 1-dose 75+ series) 2033 HIB [...] to complete this topic RSV Immunization Patients Un kellee 20 months Aged Out No longer eligible b ased on patient's age to complete this topic Varicella Vaccines Aged Out No longer eligible based on patient's age to complete this topic Insurance MEDICA[place] - [place] MEDICARE Care Teams Kiln Feeder Relationship Specialty Start Date End Date Yassine Rodriguez MD [address] [place] [address] Dr [address] [place] PCP - General 02/16/24
--- OUTSIDE RECORDS SUMMARY | 2025-04-22 17:06 | XMS_ITS | Encounter Summary ---
Author Organization [facility] Address [address] [place] [address] Care Team Providers Care Pst Supervisor Name Role Phone Yassine Rodriguez MD Primary Care Provider Encounter Details Date Type Department Care Team (Late st Contact Info) Description 09/12/2024 Lab Requisition [facility] - Main Lab 299 [facility] [place] [address] Jemal Grigsby MD [address] [place] [phone] Metabolic encephalopathy; Rhabdomyolysis; Unspecified convulsions (CMS/HCC [...] LAB CHEMISTRY METHOD 09/13/2024 9:56 AM EDT [facility] Blood Venous blood specimen / Unknown Venipuncture / Unknown 09/13/2024 7:36 AM EDT 09/13/2024 8:50 AM EDT Jemal Grigsby MD LAB BLOOD ORDERABLES Final Resul t Performing Organization Address [facility]/ZIP Co de Phone Number [facility] [address] [place] [address], * C-reactive protein (09/13/2024 7:36 AM EDT) Pathologist [facility] C-Reactive Protein <0.29 <=0.50 mg/dL LAB CHEMISTRY METHOD 09/13/2024 9:56 AM EDT [facility] Blood Venous blood specimen / Unknown Venipuncture / Unknown 09/13/2024 7:36 AM EDT 09/13/2024 8:50 AM EDT Jemal Grigsby MD LAB BLOOD ORDERABLES Final Resul t Performing Organization Address City/[facility]/ZIP Co de Phone Number [facility] [address] [place] [address], * (ABNORMAL) Comprehensive metabolic panel (09/13/2024 7:36 AM EDT) Sodium 139 133 - 145 mmol/L LAB CHEMISTRY METHOD 09/13/2024 11:33 AM EDT [facility] Potassium 4.3 3.5 - 5.5 mmol/L LAB CHEMISTRY METHOD 09/13/2024 11:33 AM [facility] Chloride 105 96 - 110 mmol/L LAB CHEMISTRY METHOD 09/13/2024 11:33 AM [facility] CO2 28 21 - 32 mmol/L LAB CHEMISTRY METHOD 09/13/2024 11:33 AM [facility] Anion Gap 6 3 - 11 LAB CHEMISTRY METHOD 09/13/2024 11:33 AM [facility] Glucose 110(H) 70 - 100 mg/dL LAB CHEMISTRY METHOD 09/13/2024 11:33 AM [facility] BUN 16 5 - 25 mg/dL LAB CHEMISTRY METHOD 09/13/2024 11:33 AM [facility] Creatinine 0.82 0.70 - 1.30 mg/dL LAB CHEMISTRY METHOD 09/13/2024 11:33 AM [facility] eGFR 97 >=60 mL/min/1. 73m2 LAB CHEMISTRY METHOD 09/13/2024 11:33 AM [facility] Comment:Calculation based on the Chronic Kidney Disease Epidemiology Collaboration (CKD-EPI) equation refit without adjustment for race. BUN/Creatinine Ratio 19.5 LAB CHEMISTRY METHOD 09/13/2024 11:33 AM [facility] Calcium 9.5 8.5 - 10.5 mg/dL LAB CHEMISTRY METHOD 09/13/2024 11:33 AM [facility] AST (SGOT) 15 10 - 42 unit/L LAB CHEMISTRY METHOD 09/13/2024 11:33 AM [facility] ALT (SGPT) 16 10 - 60 unit/L LAB CHEMISTRY METHOD 09/13/2024 11:33 AM [facility] Alkaline Phosphatase 93 42 - 121 unit/L LAB CHEMISTRY METHOD 09/13/2024 11:33 AM [facility] Total Protein 7.8 6.0 - 8.0 g/dL LAB CHEMISTRY METHOD 09/13/2024 11:33 AM EDT [facility] Albumin 3.8 3.2 - 5.0 g/dL LAB CHEMISTRY METHOD 09/13/2024 11:33 AM EDT [facility] Total Bilirubin 0.4 0.0 - 1.4 mg/dL LAB CHEMISTRY METHOD 09/13/2024 11:33 AM EDT [facility] Blood Venous blood specimen / Unknown Venipuncture / Unknown 09/13/2024 7:36 AM EDT 09/13/2024 8:50 AM EDT us Jemal Grigsby MD LAB BLOOD ORDERABLES Final Resul t [facility] [address] [place] [address], * (ABNORMAL) Complete blood count (09/13/2024 7:36 AM EDT) WBC 8.4 4.8 - 10.8 K/mcL LAB HEMETOLOGY METHOD 09/13/2024 9:22 AM [facility] RBC 5.10 4.50 - 5.50 M/mcL LAB HEMETOLOGY METHOD 09/13/2024 9:22 AM [facility] Hemoglobin 13.0(L) 13.5 - 17.5 g/dL LAB HEMETOLOGY METHOD 09/13/2024 9:22 AM [facility] Hematocrit 41.0(L) 42.0 - 54.0 % LAB HEMETOLOGY METHOD 09/13/2024 9:22 AM [facility] MCV 80.6 79.0 - 98.0 FL LAB HEMETOLOGY METHOD 09/13/2024 9:22 AM [facility] MCH 25.5(L) 27.0 - 32.0 pcg LAB HEMETOLOGY METHOD 09/13/2024 9:22 AM EDT [facility] MCHC 31.7(L) 32.0 - 37.0 g/dL LAB HEMETOLOGY METHOD 09/13/2024 9:22 AM EDT [facility] RDW 14.8 11.0 - 15.0 % LAB HEMETOLOGY METHOD 09/13/2024 9:22 AM EDT [facility] Platelets 331 130 - 400 K/mcL LAB HEMETOLOGY METHOD 09/13/2024 9:22 AM EDT [facility] MPV 11.3(H) 7.0 - 11.0 FL LAB HEMETOLOGY METHOD 09/13/2024 9:22 AM EDT [facility] NRBC 0.0 <1.0 % LAB HEMETOLOGY METHOD 09/13/2024 9:22 AM EDT [facility] NRBC Absolute 0.00 <0.10 K/mcL LAB HEMETOLOGY METHOD 09/13/2024 9:22 AM EDT [facility] Blood Venous blood specimen / Unknown Venipuncture / Unknown 09/13/2024 7:36 AM EDT 09/13/2024 8:50 AM EDT us Jemal Grigsby MD LAB BLOOD ORDERABLES Final Resul t [facility] [address] [place] [address], documented in this encounter Visit Diagnoses Diagnosis Metabolic encephalopathy Rhabdomyolysis Unspecified convulsions (CMS/HCC V24, CMS/HCC V28) documented in this encounter Care Teams Pst Supervisor Relationship Specialty Start Date End Date Yassine Rodriguez MD [address] [place] [address] [place] [address] PCP - General 02/16/24 documented as of this encounter
--- OUTSIDE RECORDS SUMMARY | 2025-04-22 17:06 | XMS_ITS | Encounter Summary ---
Author Organization [facility] Address [address] [place] [address] Care Team Providers Care Project Development Director Name Role Phone Yassine Rodriguez MD Primary Care Provider Encounter Details Date Type Department Care Team (Late st Contact Info) Description 08/06/2024 Lab Requisition [facility] - Main Lab [address] [place] [address] Jemal Grigsby MD [address] [place] [phone] Type 2 diabetes mellitus without complications [...] mmol/L LAB CHE[facility] Potassium 4.6 3.5 - 5.5 mmol/L LAB CHEMISTRY METHOD 08/07/2024 1:57 PM [facility] Chloride 99 96 - 110 mmol/L LAB CHEMISTRY METHOD 08/07/2024 1:57 PM [facility] CO2 28 21 - 32 mmol/L LAB CHEMISTRY METHOD 08/07/2024 1:57 PM [facility] Anion Gap 7 3 - 11 LAB CHEMISTRY METHOD 08/07/2024 1:57 PM [facility] Glucose 101(H) 70 - 100 mg/dL LAB CHEMISTRY METHOD 08/07/2024 1:57 PM [facility] BUN 11 5 - 25 mg/dL LAB CHEMISTRY METHOD 08/07/2024 1:57 PM [facility] Comment:Results verified by repeat testing Creatinine 0.94 0.70 - 1.30 mg/dL LAB CHEMISTRY METHOD 08/07/2024 1:57 PM [facility] eGFR 90 >=60 mL/min/1. 73m2 LAB CHEMISTRY METHOD 08/07/2024 1:57 PM [facility] Comment:Calculation based on the Chronic Kidney Disease Epidemiology Collaboration (CKD-EPI) equation refit without adjustment for race. BUN/Creatinine Ratio 11.7 LAB CHEMISTRY METHOD 08/07/2024 1:57 PM [facility] Calcium 9.9 8.5 - 10.5 mg/dL LAB CHEMISTRY METHOD 08/07/2024 1:57 PM [facility] Blood Venous blood specimen / Unknown Venipuncture / Unknown 08/07/2024 7:07 AM EDT 08/07/2024 10:51 AM EDT us Jemal Grigsby MD LAB BLOOD ORDERABLES Final Resul t [facility] [address] [place] [address], * (ABNORMAL) Complete blood count (08/07/2024 7:07 AM EDT) [facility] WBC 7.1 4.8 - 10.8 K/mcL LAB HEMETOLOGY METHOD 08/07/2024 11:09 AM [facility] RBC 5.10 4.50 - 5.50 M/mcL LAB HEMETOLOGY METHOD 08/07/2024 11:09 AM [facility] Hemoglobin 13.3(L) 13.5 - 17.5 g/dL LAB HEMETOLOGY METHOD 08/07/2024 11:09 AM [facility] Hematocrit 42.8 42.0 - 54.0 % LAB HEMETOLOGY METHOD 08/07/2024 11:09 AM [facility] MCV 83.4 79.0 - 98.0 FL LAB HEMETOLOGY METHOD 08/07/2024 11:09 AM [facility] MCH 25.9(L) 27.0 - 32.0 pcg LAB HEMETOLOGY METHOD 08/07/2024 11:09 AM [facility] MCHC 31.1(L) 32.0 - 37.0 g/dL LAB HEMETOLOGY METHOD 08/07/2024 11:09 AM [facility] RDW 15.3(H) 11.0 - 15.0 % LAB HEMETOLOGY METHOD 08/07/2024 11:09 AM [facility] Platelets 450(H) 130 - 400 K/mcL LAB HEMETOLOGY METHOD 08/07/2024 11:09 AM [facility] MPV 11.6(H) 7.0 - 11.0 FL LAB HEMETOLOGY METHOD 08/07/2024 11:09 AM [facility] NRBC 0.0 <1.0 % LAB HEMETOLOGY METHOD 08/07/2024 11:09 AM EDT [facility] NRBC Absolute 0.00 <0.10 K/mcL LAB HEMETOLOGY METHOD 08/07/2024 11:09 AM EDT [facility] Blood Venous blood specimen / Unknown Venipuncture / Unknown 08/07/2024 7:07 AM EDT 08/07/2024 10:51 AM EDT us Jemal Grigsby MD LAB BLOOD ORDERABLES Final Resul t [facility] [address] [place] [address], documented in this encounter Visit Diagnoses Diagnosis Type 2 diabetes mellitus without complications (CMS/HCC V24, CMS/HCC V28) documented in this encounter Care Teams Project Development Director Relationship Specialty Start Date End Date Yassine Rodriguez MD [address] [place] [address] Dr [address] [place], [place] PCP - General 02/16/24 documented as of this encounter
--- OUTSIDE RECORDS SUMMARY | 2025-04-22 17:06 | XMS_ITS | Encounter Summary ---
Author Organization [facility] Address [address] [place] [address] Care Team Providers Care Vegetable Canner Name Role Phone Yassine Rodriguez MD Primary Care Provider Encounter Details Date Type Department Care Team (Late st Contact Info) Description 08/29/2024 Lab Requisition [facility] - Main Lab [address] [place] [address] Jemal Grigsby MD [address] [place] [phone] Essential (primary) hypertension Social History Tobacco [...] unit/L LAB CHEMISTRY METHOD 08/29/2024 11:58 AM [facility] Blood Venous blood specimen / Unknown Venipuncture / Unknown 08/29/2024 5:55 AM EDT 08/29/2024 10:39 AM EDT us Jemal Grigsby MD LAB BLOOD ORDERABLES Final Resul t [facility] [address] [place] [address], [place] [phone] * (ABNORMAL) Comprehensive metabolic panel (08/29/2024 5:55 AM EDT) Sodium 136 133 - 145 mmol/L LAB CHEMISTRY METHOD 08/29/2024 11:58 AM [facility] Potassium 4.7 3.5 - 5.5 mmol/L LAB CHEMISTRY METHOD 08/29/2024 11:58 AM [facility] Chloride 101 96 - 110 mmol/L LAB CHEMISTRY METHOD 08/29/2024 11:58 AM [facility] CO2 28 21 - 32 mmol/L LAB CHEMISTRY METHOD 08/29/2024 11:58 AM [facility] Anion Gap 7 3 - 11 LAB CHEMISTRY METHOD 08/29/2024 11:58 AM [facility] Glucose 73 70 - 100 mg/dL LAB CHEMISTRY METHOD 08/29/2024 11:58 AM [facility] BUN 11 5 - 25 mg/dL LAB CHEMISTRY METHOD 08/29/2024 11:58 AM [facility] Creatinine 0.75 0.70 - 1.30 mg/dL LAB CHEMISTRY METHOD 08/29/2024 11:58 AM [facility] LAB eGFR 100 >=60 mL/min/1. 73m2 LAB CHEMISTRY METHOD 08/29/2024 11:58 AM [facility] Comment:Calculation based on the Chronic Kidney Disease Epidemiology Collaboration (CKD-EPI) equation refit without adjustment for race. BUN/Creatinine Ratio 14.7 LAB CHEMISTRY METHOD 08/29/2024 11:58 AM [facility] Calcium 9.7 8.5 - 10.5 mg/dL LAB CHEMISTRY METHOD 08/29/2024 11:58 AM [facility] LAB AST (SGOT) 15 10 - 42 unit/L LAB CHEMISTRY METHOD 08/29/2024 11:58 AM [facility] LAB ALT (SGPT) 9(L) 10 - 60 unit/L LAB CHEMISTRY METHOD 08/29/2024 11:58 AM [facility] Alkaline Phosphatase 66 42 - 121 unit/L LAB CHEMISTRY METHOD 08/29/2024 11:58 AM [facility] Total Protein 7.1 6.0 - 8.0 g/dL LAB CHEMISTRY METHOD 08/29/2024 11:58 AM [facility] Albumin 3.4 3.2 - 5.0 g/dL LAB CHEMISTRY METHOD 08/29/2024 11:58 AM [facility] Total Bilirubin 0.5 0.0 - 1.4 mg/dL LAB CHEMISTRY METHOD 08/29/2024 11:58 AM [facility] Blood Venous blood specimen / Unknown Venipuncture / Unknown 08/29/2024 5:55 AM EDT 08/29/2024 10:39 AM EDT us Jemal Grigsby MD LAB BLOOD ORDERABLES Final Resul t [facility] [address] [place] [address], * (ABNORMAL) Complete blood count (08/29/2024 5:55 AM EDT) WBC 5.9 4.8 - 10.8 K/mcL LAB HEMETOLOGY METHOD 08/29/2024 11:25 AM [facility] RBC 4.80 4.50 - 5.50 M/mcL LAB HEMETOLOGY METHOD 08/29/2024 11:25 AM [facility] Hemoglobin 12.5(L) 13.5 - 17.5 g/dL LAB HEMETOLOGY METHOD 08/29/2024 11:25 AM [facility] Hematocrit 40.0(L) 42.0 - 54.0 % LAB HEMETOLOGY METHOD 08/29/2024 11:25 AM [facility] LAB MCV 83.0 79.0 - 98.0 FL LAB HEMETOLOGY METHOD 08/29/2024 11:25 AM [facility] MCH 25.9(L) 27.0 - 32.0 pcg LAB HEMETOLOGY METHOD 08/29/2024 11:25 AM [facility] LAB MCHC 31.3(L) 32.0 - 37.0 g/dL LAB HEMETOLOGY METHOD 08/29/2024 11:25 AM [facility] RDW 14.8 11.0 - 15.0 % LAB HEMETOLOGY METHOD 08/29/2024 11:25 AM [facility] LAB Platelets 270 130 - 400 K/mcL LAB HEMETOLOGY METHOD 08/29/2024 11:25 AM [facility] MPV 11.5(H) 7.0 - 11.0 FL LAB HEMETOLOGY METHOD 08/29/2024 11:25 AM [facility] NRBC 0.0 <1.0 % LAB HEMETOLOGY METHOD 08/29/2024 11:25 AM [facility] LAB NRBC Absolute 0.00 <0.10 K/mcL LAB HEMETOLOGY METHOD 08/29/2024 11:25 AM [facility] Blood Venous blood specimen / Unknown Venipuncture / Unknown 08/29/2024 5:55 AM EDT 08/29/2024 10:39 AM EDT us Jemal Grigsby MD LAB BLOOD ORDERABLES Final Resul t [facility] [address] [place] [address], documented in this encounter Visit Diagnoses Diagnosis Essential (primary) hypertension Unspecified essential hypertension documented in this encounter Care Teams Vegetable Canner Relationship Specialty Start Date End Date Yassine Rodriguez MD [address] [place] [address] Dr [address] [place], [place] PCP - General 02/16/24 documented as of this encounter
--- OUTSIDE RECORDS SUMMARY | 2025-04-22 17:06 | XMS_ITS | Encounter Summary ---
Author Organization [facility] Address [address] [place] [address] Care Team Providers Care Farm Crew Member Name Role Phone Yassine Rodriguez MD Primary Care Provider Encounter Details Date Type Department Care Team (Late st Contact Info) Description 08/29/2024 Lab Requisition [facility] - Main Lab [address] [facility] [place] [address] Jemal Grigsby MD [address] [place] [phone] Metabolic encephalopathy; Rhabdomyolysis; Unspecified convulsions (CMS/HCC [...] * Creatine kinase (08/30/2024 8:34 AM EDT) [facility] Total CK 59 22 - 269 unit/L LAB CHEMISTRY METHOD 08/30/2024 11:17 AM EDT [facility] Blood Venous blood specimen / Unknown Venipuncture / Unknown 08/30/2024 8:34 AM EDT 08/30/2024 9:56 AM EDT us Jemal Grigsby MD LAB BLOOD ORDERABLES Final Resul t [facility] [address] [place] [address], * C-reactive protein (08/30/2024 8:34 AM EDT) [facility] C-Reactive Protein <0.29 <=0.50 mg/dL LAB CHEMISTRY METHOD 08/30/2024 11:16 AM [facility] Blood Venous blood specimen / Unknown Venipuncture / Unknown 08/30/2024 8:34 AM EDT 08/30/2024 9:56 AM EDT Jemal Grigsby MD LAB BLOOD ORDERABLES Final Resul t [facility] [address] [place] [address], [place] [phone] * (ABNORMAL) Comprehensive metabolic panel (08/30/2024 8:34 AM EDT) [facility] Sodium 136 133 - 145 mmol/L LAB CHEMISTRY METHOD 08/30/2024 11:17 AM [facility] Potassium 4.3 3.5 - 5.5 mmol/L LAB CHEMISTRY METHOD 08/30/2024 11:17 AM [facility] Chloride 103 96 - 110 mmol/L LAB CHEMISTRY METHOD 08/30/2024 11:17 AM [facility] CO2 26 21 - 32 mmol/L LAB CHEMISTRY METHOD 08/30/2024 11:17 AM [facility] Anion Gap 7 3 - 11 LAB CHEMISTRY METHOD 08/30/2024 11:17 AM [facility] Glucose 138(H) 70 - 100 mg/dL LAB CHEMISTRY METHOD 08/30/2024 11:17 AM [facility] BUN 12 5 - 25 mg/dL LAB CHEMISTRY METHOD 08/30/2024 11:17 AM [facility] Creatinine 0.85 0.70 - 1.30 mg/dL LAB CHEMISTRY METHOD 08/30/2024 11:17 AM [facility] eGFR 96 >=60 mL/min/1. 73m2 LAB CHEMISTRY METHOD 08/30/2024 11:17 AM [facility] Comment:Calculation based on the Chronic Kidney Disease Epidemiology Collaboration (CKD-EPI) equation refit without adjustment for race. BUN/Creatinine Ratio 14.1 LAB CHEMISTRY METHOD 08/30/2024 11:17 AM [facility] Calcium 9.6 8.5 - 10.5 mg/dL LAB CHEMISTRY METHOD 08/30/2024 11:17 AM [facility] AST (SGOT) 13 10 - 42 unit/L LAB CHEMISTRY METHOD 08/30/2024 11:17 AM [facility] ALT (SGPT) 10 10 - 60 unit/L LAB CHEMISTRY METHOD 08/30/2024 11:17 AM [facility] Alkaline Phosphatase 80 42 - 121 unit/L LAB CHEMISTRY METHOD 08/30/2024 11:17 AM [facility] Total Protein 7.6 6.0 - 8.0 g/dL LAB CHEMISTRY METHOD 08/30/2024 11:17 AM [facility] Albumin 3.7 3.2 - 5.0 g/dL LAB CHEMISTRY METHOD 08/30/2024 11:17 AM [facility] Total Bilirubin 0.5 0.0 - 1.4 mg/dL LAB CHEMISTRY METHOD 08/30/2024 11:17 AM [facility] Blood Venous blood specimen / Unknown Venipuncture / Unknown 08/30/2024 8:34 AM EDT 08/30/2024 9:56 AM EDT us Jemal Grigsby MD LAB BLOOD ORDERABLES Final Resul t [facility] [address] [place] [address], [place] [phone] * (ABNORMAL) Complete blood count (08/30/2024 8:34 AM EDT) WBC 6.8 4.8 - 10.8 K/mcL LAB HEMETOLOGY METHOD 08/30/2024 10:45 AM [facility] RBC 4.90 4.50 - 5.50 M/mcL LAB HEMETOLOGY METHOD 08/30/2024 10:45 AM [facility] Hemoglobin 12.8(L) 13.5 - 17.5 g/dL LAB HEMETOLOGY METHOD 08/30/2024 10:45 AM [facility] Hematocrit 40.3(L) 42.0 - 54.0 % LAB HEMETOLOGY METHOD 08/30/2024 10:45 AM [facility] MCV 82.2 79.0 - 98.0 FL LAB HEMETOLOGY METHOD 08/30/2024 10:45 AM [facility] MCH 26.1(L) 27.0 - 32.0 pcg LAB HEMETOLOGY METHOD 08/30/2024 10:45 AM [facility] MCHC 31.8(L) 32.0 - 37.0 g/dL LAB HEMETOLOGY METHOD 08/30/2024 10:45 AM [facility] RDW 14.7 11.0 - 15.0 % LAB HEMETOLOGY METHOD 08/30/2024 10:45 AM [facility] Platelets 302 130 - 400 K/mcL LAB HEMETOLOGY METHOD 08/30/2024 10:45 AM [facility] MPV 11.5(H) 7.0 - 11.0 FL LAB HEMETOLOGY METHOD 08/30/2024 10:45 AM [facility] NRBC 0.0 <1.0 % LAB HEMETOLOGY METHOD 08/30/2024 10:45 AM [facility] NRBC Absolute 0.00 <0.10 K/mcL LAB HEMETOLOGY METHOD 08/30/2024 10:45 AM EDT [facility] Blood Venous blood specimen / Unknown Venipuncture / Unknown 08/30/2024 8:34 AM EDT 08/30/2024 9:56 AM EDT us Jemal Grigsby MD LAB BLOOD ORDERABLES Final Resul t [facility] [address] [place] [address], documented in this encounter Visit Diagnoses Diagnosis Metabolic encephalopathy Rhabdomyolysis Unspecified convulsions ([facility]/HCC V24, [facility]/HCC V28) Type 2 diabetes mellitus without complications ([facility]/HCC V24, [facility]/HCC V28) Chronic viral hepatitis C ([facility]/HCC V24, [facility] V28) Chronic hepatitis C without mention of hepatic coma Dysarthria and anarthria documented in this encounter Care Teams Farm Crew Member Relationship Specialty Start Date End Date Yassine Rodriguez MD [address] [place] [address] Dr [address] [place], [place] PCP - General 02/16/24 documented as of this encounter
--- OUTSIDE RECORDS SUMMARY | 2025-04-22 17:06 | XMS_ITS | Encounter Summary ---
Author Organization [facility] Address [address] [place] [address] Care Team Providers Care Ic Designer Gate Arrays Name Role Phone Yassine Rodriguez MD Primary Care Provider [phone] Encounter Details Date Type Department Care Team (Late st Contact Info) Description 09/02/2024 Lab Requisition [facility] - Main Lab [address] [facility] [place] [address] Jemal Grigsby MD [address] [place] [phone] Essential (primary) hypertension; Type 2 diabetes [...] mmol/L LAB CHEMISTRY METHOD 09/02/2024 11:41 AM [facility] Potassium 4.3 3.5 - 5.5 mmol/L LAB CHEMISTRY METHOD 09/02/2024 11:41 AM [facility] Chloride 106 96 - 110 mmol/L LAB CHEMISTRY METHOD 09/02/2024 11:41 AM [facility] CO2 30 21 - 32 mmol/L LAB CHEMISTRY METHOD 09/02/2024 11:41 AM [facility] Anion Gap 5 3 - 11 LAB CHEMISTRY METHOD 09/02/2024 11:41 AM [facility] Glucose 67(L) 70 - 100 mg/dL LAB CHEMISTRY METHOD 09/02/2024 11:41 AM [facility] BUN 8 5 - 25 mg/dL LAB CHEMISTRY METHOD 09/02/2024 11:41 AM [facility] Creatinine 0.75 0.70 - 1.30 mg/dL LAB CHEMISTRY METHOD 09/02/2024 11:41 AM [facility] eGFR 100 >=60 mL/min/1. 73m2 LAB CHEMISTRY METHOD 09/02/2024 11:41 AM [facility] Comment:Calculation based on the Chronic Kidney Disease Epidemiology Collaboration (CKD-EPI) equation refit without adjustment for race. BUN/Creatinine Ratio 10.7 LAB CHEMISTRY METHOD 09/02/2024 11:41 AM [facility] Calcium 9.8 8.5 - 10.5 mg/dL LAB CHEMISTRY METHOD 09/02/2024 11:41 AM [facility] AST (SGOT) 16 10 - 42 unit/L LAB CHEMISTRY METHOD 09/02/2024 11:41 AM [facility] ALT (SGPT) 13 10 - 60 unit/L LAB CHEMISTRY METHOD 09/02/2024 11:41 AM [facility] Alkaline Phosphatase 69 42 - 121 unit/L LAB CHEMISTRY METHOD 09/02/2024 11:41 AM EDT [facility] Total Protein 7.1 6.0 - 8.0 g/dL LAB CHEMISTRY METHOD 09/02/2024 11:41 AM EDT [facility] Albumin 3.4 3.2 - 5.0 g/dL LAB CHEMISTRY METHOD 09/02/2024 11:41 AM EDT [facility] Total Bilirubin 0.5 0.0 - 1.4 mg/dL LAB CHEMISTRY METHOD 09/02/2024 11:41 AM EDT [facility] Blood Venous blood specimen / Unknown Venipuncture / Unknown 09/02/2024 5:17 AM EDT 09/02/2024 10:00 AM EDT us Jemal Grigsby MD LAB BLOOD ORDERABLES Final Resul t [facility] [address] [place] [address], [place] [phone] * (ABNORMAL) Complete blood count (09/02/2024 5:17 AM EDT) WBC 6.1 4.8 - 10.8 K/mcL LAB HEMETOLOGY METHOD 09/02/2024 11:43 AM [facility] RBC 4.60 4.50 - 5.50 M/[facility] LAB [facility]OLOGY [facility] Hemoglobin 12.0(L) 13.5 - 17.5 g/dL LAB HEMETOLOGY METHOD 09/02/2024 11:43 AM [facility] Hematocrit 38.2(L) 42.0 - 54.0 % LAB HEMETOLOGY METHOD [facility]02[facility]24 [facility] MCV 82.7 79.0 - 98.0 FL LAB HEMETOLOGY METHOD 09/02/2024 11:43 AM EDT [facility] MCH 26.0(L) 27.0 - 32.0 pcg LAB HEMETOLOGY METHOD 09/02/2024 11:43 AM EDT [facility] MCHC 31.4(L) 32.0 - 37.0 g/dL LAB HEMETOLOGY METHOD 09/02/2024 11:43 AM EDT [facility] RDW 15.1(H) 11.0 - 15.0 % LAB HEMETOLOGY METHOD 09/02/2024 11:43 AM EDT [facility] Platelets 295 130 - 400 K/mcL LAB HEMETOLOGY METHOD 09/02/2024 11:43 AM EDT [facility] MPV 11.5(H) 7.0 - 11.0 FL LAB HEMETOLOGY METHOD 09/02/2024 11:43 AM EDT [facility] NRBC 0.0 <1.0 % LAB HEMETOLOGY METHOD 09/02/2024 11:43 AM EDT [facility] NRBC Absolute 0.00 <0.10 K/mcL LAB HEMETOLOGY METHOD 09/02/2024 11:43 AM T [facility] Blood Venous blood specimen / Unknown Venipuncture / Unknown 09/02/2024 5:17 AM EDT 09/02/2024 10:00 AM EDT us Jemal Grigsby MD LAB BLOOD ORDERABLES Final Resul t [facility] [address] [place] [address], documented in this encounter Visit Diagnoses Diagnosis Essential (primary) hypertension Unspecified essential hypertension Type 2 diabetes mellitus without complications (CMS/HCC V24, CMS/HCC V28) documented in this encounter Care Teams Ic Designer Gate Arrays Relationship Specialty Start Date End Date Yassine Rodriguez MD [address] [place] [address] Dr [address] ANNE-MARIE Olivas PCP - General 02/16/24 documented as of this encounter
--- OUTSIDE RECORDS SUMMARY | 2025-04-22 17:06 | XMS_ITS | Encounter Summary ---
Author Organization [facility] Address [address] [place] [address] Care Team Providers Care Message Clerk Name Role Phone Yassine Rodriguez MD Primary Care Provider Encounter Details Date Type Department Care Team (Late st Contact Info) Description 08/20/[address] [facility] - Main Lab [address] [place] [address] Jemal Grigsby MD [address] [place] [address] [address] [facility] [phone] Type 2 diabetes mellitus without complications [...] LAB CHEMISTRY METHOD 08/21/2024 1:06 PM EDT [facility] Potassium 4.6 3.5 - 5.5 mmol/L LAB CHEMISTRY METHOD 08/21/2024 1:06 PM [facility] Chloride 101 96 - 110 mmol/L LAB CHEMISTRY METHOD 08/21/2024 1:06 PM [facility] CO2 24 21 - 32 mmol/L LAB CHEMISTRY METHOD 08/21/2024 1:06 PM [facility] Anion Gap 8 3 - 11 LAB CHEMISTRY METHOD 08/21/2024 1:06 PM [facility] Glucose 172(H) 70 - 100 mg/dL LAB CHEMISTRY METHOD 08/21/2024 1:06 PM [facility] BUN 11 5 - 25 mg/dL LAB CHEMISTRY METHOD 08/21/2024 1:06 PM [facility] Creatinine 0.94 0.70 - 1.30 mg/dL LAB CHEMISTRY METHOD 08/21/2024 1:06 PM [facility] eGFR 90 >=60 mL/min/1. 73m2 LAB CHEMISTRY METHOD 08/21/2024 1:06 PM [facility] Comment:Calculation based on the Chronic Kidney Disease Epidemiology Collaboration (CKD-EPI) equation refit without adjustment for race. BUN/Creatinine Ratio 11.7 LAB CHEMISTRY METHOD 08/21/2024 1:06 PM [facility] Calcium 9.5 8.5 - 10.5 mg/dL LAB CHEMISTRY METHOD 08/21/2024 1:06 PM [facility] Blood Venous blood specimen / Unknown Venipuncture / Unknown 08/21/2024 8:14 AM EDT 08/21/2024 12:18 PM EDT us Jemal Grigsby MD LAB BLOOD ORDERABLES Final Resul t [facility] [address] [place] [address], [place] [phone] * (ABNORMAL) Complete blood count (08/21/2024 8:14 AM EDT) [facility] [address] WBC 5.6 4.8 - 10.8 K/mcL LAB HEMETOLOGY METHOD 08/21/2024 12:42 PM [facility] RBC 4.90 4.50 - 5.50 M/mcL LAB HEMETOLOGY METHOD 08/21/2024 12:42 PM [facility] Hemoglobin 12.6(L) 13.5 - 17.5 g/dL LAB HEMETOLOGY METHOD 08/21/2024 12:42 PM [facility] Hematocrit 40.0(L) 42.0 - 54.0 % LAB HEMETOLOGY METHOD 08/21/2024 12:42 PM [facility] MCV 82.3 79.0 - 98.0 FL LAB HEMETOLOGY METHOD 08/21/2024 12:42 PM [facility] MCH 25.9(L) 27.0 - 32.0 pcg LAB HEMETOLOGY METHOD 08/21/2024 12:42 PM [facility] MCHC 31.5(L) 32.0 - 37.0 g/dL LAB HEMETOLOGY METHOD 08/21/2024 12:42 PM [facility] RDW 14.9 11.0 - 15.0 % LAB HEMETOLOGY METHOD 08/21/2024 12:42 PM [facility] Platelets 318 130 - 400 K/mcL LAB HEMETOLOGY METHOD 08/21/2024 12:42 PM [facility] MPV 11.5(H) 7.0 - 11.0 FL LAB HEMETOLOGY METHOD 08/21/2024 12:42 PM [facility] NRBC 0.0 <1.0 % LAB HEMETOLOGY METHOD 08/21/2024 12:42 PM [facility] NRBC Absolute 0.00 <0.10 K/mcL LAB HEMETOLOGY METHOD 08/21/2024 12:42 PM EDT [facility] Blood Venous blood specimen / Unknown Venipuncture / Unknown 08/21/2024 8:14 AM EDT 08/21/2024 12:18 PM EDT us Jemal Grigsby MD LAB BLOOD ORDERABLES Final Resul t [facility] [address] [place] [address], documented in this encounter Visit Diagnoses Diagnosis Type 2 diabetes mellitus without complications (CMS/HCC V24, CMS/HCC V28) documented in this encounter Care Teams Message Clerk Relationship Specialty Start Date End Date Yassine Rodriguez MD [address] [place] [address] Dr [address] [place], [place] PCP - General 02/16/24 documented as of this encounter
--- OUTSIDE RECORDS SUMMARY | 2025-04-22 17:06 | XMS_ITS | Encounter Summary ---
Author Organization [facility] Address [address] [place] [address] Care Team Providers Care Fire Control Mechanic Name Role Phone Yassine Rodriguez MD Primary Care Provider [phone] Encounter Details Date Type Department Care Team (Late st Contact Info) Description 08/15/2024 Lab Requisition [facility] [place] [facility] - Main Lab 299 [facility] [place] [address] Jemal Grigsby MD [address] [place] [phone] Metabolic encephalopathy; Rhabdomyolysis; Unspecified convulsions (CMS/HCC [...] (ABNORMAL) C-reactive protein (08/16/2024 8:37 AM EDT) [facility] C-Reactive Protein 0.60(H) <=0.50 mg/dL LAB CHEMISTRY METHOD 08/16/2024 12:16 PM [facility] Blood Venous blood specimen / Unknown Venipuncture / Unknown 08/16/2024 8:37 AM EDT 08/16/2024 10:22 AM EDT us Jemal Grigsby MD LAB BLOOD ORDERABLES Final Resul t [facility] [address] [place] [address], [place] [phone] * (ABNORMAL) Comprehensive metabolic panel (08/16/2024 8:37 AM EDT) [facility] Sodium 135 133 - 145 mmol/L LAB CHEMISTRY METHOD 08/16/2024 12:16 PM [facility] Potassium 4.4 3.5 - 5.5 mmol/L LAB CHEMISTRY METHOD 08/16/2024 12:16 PM [facility] Chloride 102 96 - 110 mmol/L LAB CHEMISTRY METHOD 08/16/2024 12:16 PM [facility] CO2 28 21 - 32 mmol/L LAB CHEMISTRY METHOD 08/16/2024 12:16 PM [facility] Anion Gap 5 3 - 11 LAB CHEMISTRY METHOD 08/16/2024 12:16 PM [facility] Glucose 121(H) 70 - 100 mg/dL LAB CHEMISTRY METHOD 08/16/2024 12:16 PM [facility] BUN 7 5 - 25 mg/dL LAB CHEMISTRY METHOD 08/16/2024 12:16 PM [facility] Creatinine 0.89 0.70 - 1.30 mg/dL LAB CHEMISTRY METHOD 08/16/2024 12:16 PM [facility] eGFR 95 >=60 mL/min/1. 73m2 LAB CHEMISTRY METHOD 08/16/2024 12:16 PM T [facility] Comment:Calculation based on the Chronic Kidney Disease Epidemiology Collaboration (CKD-EPI) equation refit without adjustment for race. BUN/Creatinine Ratio 7.9 LAB CHEMISTRY METHOD 08/16/2024 12:16 PM T [facility] Calcium 9.1 8.5 - 10.5 mg/dL LAB CHEMISTRY METHOD 08/16/2024 12:16 PM T [facility] AST (SGOT) 11 10 - 42 unit/L LAB CHEMISTRY METHOD 08/16/2024 12:16 PM [facility] ALT (SGPT) 22 10 - 60 unit/L LAB CHEMISTRY METHOD 08/16/2024 12:16 PM [facility] Alkaline Phosphatase 84 42 - 121 unit/L LAB CHEMISTRY METHOD 08/16/2024 12:16 PM [facility] Total Protein 7.0 6.0 - 8.0 g/dL LAB CHEMISTRY METHOD 08/16/2024 12:16 PM [facility] Albumin 3.3 3.2 - 5.0 g/dL LAB CHEMISTRY METHOD 08/16/2024 12:16 PM [facility] Total Bilirubin 0.2 0.0 - 1.4 mg/dL LAB CHEMISTRY METHOD 08/16/2024 12:16 PM [facility] Blood Venous blood specimen / Unknown Venipuncture / Unknown 08/16/2024 8:37 AM EDT 08/16/2024 10:22 AM EDT us Jemal Grigsby MD LAB BLOOD ORDERABLES Final Resul t [facility] [address] [place] [address], * (ABNORMAL) Complete blood count (08/16/2024 8:37 AM EDT) WBC 5.8 4.8 - 10.8 K/mcL LAB HEMETOLOGY METHOD 08/16/2024 11:14 AM [facility] RBC 4.50 4.50 - 5.50 M/mcL LAB HEMETOLOGY METHOD 08/16/2024 11:14 AM [facility] Hemoglobin 11.7(L) 13.5 - 17.5 g/dL LAB HEMETOLOGY METHOD 08/16/2024 11:14 AM [facility] Hematocrit 37.9(L) 42.0 - 54.0 % LAB HEMETOLOGY METHOD 08/16/2024 11:14 AM [facility] MCV 83.7 79.0 - 98.0 FL LAB HEMETOLOGY METHOD 08/16/2024 11:14 AM [facility] MCH 25.8(L) 27.0 - 32.0 pcg LAB HEMETOLOGY METHOD 08/16/2024 11:14 AM [facility] MCHC 30.9(L) 32.0 - 37.0 g/dL LAB HEMETOLOGY METHOD 08/16/2024 11:14 AM [facility] RDW 15.1(H) 11.0 - 15.0 % LAB HEMETOLOGY METHOD 08/16/2024 11:14 AM [facility] Platelets 364 130 - 400 K/mcL LAB HEMETOLOGY METHOD 08/16/2024 11:14 AM [facility] MPV 11.4(H) 7.0 - 11.0 FL LAB HEMETOLOGY METHOD 08/16/2024 11:14 AM [facility] NRBC 0.0 <1.0 % LAB HEMETOLOGY METHOD 08/16/2024 11:14 AM [facility] NRBC Absolute 0.00 <0.10 K/[facility] LAB HEMETOLOGY METHOD 08/16/2024 11:14 AM EDT [facility] Blood Venous blood specimen / Unknown Venipuncture / Unknown 08/16/2024 8:37 AM EDT 08/16/2024 10:22 AM EDT us Jemal Grigsby MD LAB BLOOD ORDERABLES Final Resul t [facility] [address] [place] [address], documented in this encounter Visit Diagnoses Diagnosis Metabolic encephalopathy Rhabdomyolysis Unspecified convulsions (CMS/HCC V24, CMS/HCC V28) documented in this encounter Care Teams Fire Control Mechanic Relationship Specialty Start Date End Date Yassine Rodriguez MD [address] [place] [address] Dr [address] [place] PCP - General 02/16/24 documented as of this encounter
--- OUTSIDE RECORDS SUMMARY | 2025-04-22 17:06 | XMS_ITS | Encounter Summary ---
Author Organization [facility] Address [address] [place] [address] Care Team Providers Care Stock Broker Supervisor Name Role Phone Yassine Rodriguez MD Primary Care Provider Encounter Details Date Type Department Care Team (Late st Contact Info) Description 09/26/2024 Lab Requisition [facility] - Main Lab 299 [facility] [place] [address] Jemal Grigsby MD [address] [place] [phone] Metabolic encephalopathy; Rhabdomyolysis; Unspecified convulsions (CMS/HCC [...] * Creatine kinase (09/27/2024 6:40 AM EDT) [facility] Total CK 52 22 - 269 unit/L LAB CHEMISTRY METHOD 09/27/2024 9:[address] [facility] Blood Venous blood specimen / Unknown Venipuncture / Unknown 09/27/2024 6:40 AM EDT 09/27/2024 8:37 AM EDT us Jemal Grigsby MD LAB BLOOD ORDERABLES Final Resul t [facility] [address] [place] [address], * (ABNORMAL) C-reactive protein (09/27/2024 6:40 AM EDT) [facility] C-Reactive Protein 1.58(H) <=0.50 mg/dL LAB CHEMISTRY METHOD 09/27/2024 9:48 AM [facility] Blood Venous blood specimen / Unknown Venipuncture / Unknown 09/27/2024 6:40 AM EDT 09/27/2024 8:37 AM EDT us Jemal Grigsby MD LAB BLOOD ORDERABLES Final Resul t [facility] [address] [place] [address], [place] [phone] * (ABNORMAL) Comprehensive metabolic panel (09/27/2024 6:40 AM EDT) [facility] Sodium 135 133 - 145 mmol/L LAB CHEMISTRY METHOD 09/27/2024 9:33 AM [facility] Potassium 4.5 3.5 - 5.5 mmol/L LAB CHEMISTRY METHOD 09/27/2024 9:33 AM [facility] Chloride 104 96 - 110 mmol/L LAB CHEMISTRY METHOD 09/27/2024 9:33 AM [facility] CO2 26 21 - 32 mmol/L LAB CHEMISTRY METHOD 09/27/2024 9:33 AM [facility] Anion Gap 5 3 - 11 LAB CHEMISTRY METHOD 09/27/2024 9:33 AM [facility] Glucose 107(H) 70 - 100 mg/dL LAB CHEMISTRY METHOD 09/27/2024 9:33 AM [facility] BUN 10 5 - 25 mg/dL LAB CHEMISTRY METHOD 09/27/2024 9:33 AM [facility] Creatinine 0.77 0.70 - 1.30 mg/dL LAB CHEMISTRY METHOD 09/27/2024 9:33 AM [facility] eGFR 99 >=60 mL/min/1. 73m2 LAB CHEMISTRY METHOD 09/27/2024 9:33 AM [facility] Comment:Calculation based on the Chronic Kidney Disease Epidemiology Collaboration (CKD-EPI) equation refit without adjustment for race. BUN/Creatinine Ratio 13.0 LAB CHEMISTRY METHOD 09/27/2024 9:33 AM [facility] Calcium 9.3 8.5 - 10.5 mg/dL LAB CHEMISTRY METHOD 09/27/2024 9:33 AM [facility] AST (SGOT) 11 10 - 42 unit/L LAB CHEMISTRY METHOD 09/27/2024 9:33 AM [facility] ALT (SGPT) 14 10 - 60 unit/L LAB CHEMISTRY METHOD 09/27/2024 9:33 AM [facility] Alkaline Phosphatase 91 42 - 121 unit/L LAB CHEMISTRY METHOD 09/27/2024 9:33 AM [facility] Total Protein 7.4 6.0 - 8.0 g/dL LAB CHEMISTRY METHOD 09/27/2024 9:33 AM [facility] Albumin 3.2 3.2 - 5.0 g/dL LAB CHEMISTRY METHOD 09/27/2024 9:33 AM [facility] Total Bilirubin 0.2 0.0 - 1.4 mg/dL LAB CHEMISTRY METHOD 09/27/2024 9:33 AM [facility] Blood Venous blood specimen / Unknown Venipuncture / Unknown 09/27/2024 6:40 AM EDT 09/27/2024 8:37 AM EDT us Jemal Grigsby MD LAB BLOOD ORDERABLES Final Resul t [facility] [address] [place] [address], [place] [phone] * (ABNORMAL) Complete blood count (09/27/2024 6:40 AM EDT) WBC 8.4 4.8 - 10.8 K/mcL LAB HEMETOLOGY METHOD 09/27/2024 9:13 AM [facility] RBC 4.80 4.50 - 5.50 M/mcL LAB HEMETOLOGY METHOD 09/27/2024 9:13 AM [facility] Hemoglobin 12.5(L) 13.5 - 17.5 g/dL LAB HEMETOLOGY METHOD 09/27/2024 9:13 AM [facility] Hematocrit 39.5(L) 42.0 - 54.0 % LAB HEMETOLOGY METHOD 09/27/2024 9:13 AM [facility] MCV 82.0 79.0 - 98.0 FL LAB HEMETOLOGY METHOD 09/27/2024 9:13 AM [facility] MCH 25.9(L) 27.0 - 32.0 pcg LAB HEMETOLOGY METHOD 09/27/2024 9:13 AM [facility] MCHC 31.6(L) 32.0 - 37.0 g/dL LAB HEMETOLOGY METHOD 09/27/2024 9:13 AM [facility] RDW 14.6 11.0 - 15.0 % LAB HEMETOLOGY METHOD 09/27/2024 9:13 AM [facility] Platelets 465(H) 130 - 400 K/[facility] LAB HEMETOLOGY METHOD 09/27/2024 9:13 AM [facility] MPV 10.6 7.0 - 11.0 FL LAB HEMETOLOGY METHOD 09/27/2024 9:13 AM [facility] NRBC 0.0 <1.0 % LAB HEMETOLOGY METHOD 09/27/2024 9:13 AM [facility] NRBC Absolute 0.00 <0.10 K/[facility] LAB HEMETOLOGY METHOD 09/27/2024 9:[address] [facility] Blood Venous blood specimen / Unknown Venipuncture / Unknown 09/27/2024 6:40 AM EDT 09/27/2024 8:37 AM EDT us Jemal Grigsby MD LAB BLOOD ORDERABLES Final Resul t [facility] [address] [place] [address], documented in this encounter Visit Diagnoses Diagnosis Metabolic encephalopathy Rhabdomyolysis Unspecified convulsions (CMS/HCC V24, [facility]/HCC V28) Chronic viral hepatitis C ([facility]/HCC V24, [facility]/HCC V28) Chronic hepatitis C without mention of hepatic coma Dysarthria and anarthria Type 2 diabetes mellitus without complications (CMS/HCC V24, [facility]/HCC V28) documented in this encounter Care Teams Stock Broker Supervisor Relationship Specialty Start Date End Date Yassine Rodriguez MD [address] [place] [address] [address] [place], [place] PCP - General 02/16/24 documented as of this encounter
== END 2025-04-22 16:16 | disposition home or self-care (01) ==
LOC: HO.HMCH 15:32
PROVIDERS: PCP Internal Medicine; Visit Provider Internal Medicine
DX: Z00.00 Encounter for general adult medical examination without abnormal findings (principal); G20.A1 Parkinson's disease without dyskinesia, without mention of fluctuations; E11.9 Type 2 diabetes mellitus without complications; F25.9 Schizoaffective disorder, unspecified; F10.20 Alcohol dependence, uncomplicated; E78.00 Pure hypercholesterolemia, unspecified; I10 Essential (primary) hypertension; B19.20 Unspecified viral hepatitis C without hepatic coma; K29.70 Gastritis, unspecified, without bleeding; J30.9 Allergic rhinitis, unspecified; R41.89 Other symptoms and signs involving cognitive functions and awareness; N40.1 Benign prostatic hyperplasia with lower urinary tract symptoms; R35.0 Frequency of micturition; N39.46 Mixed incontinence; G47.00 Insomnia, unspecified; F17.200 Nicotine dependence, unspecified, uncomplicated

== ENCOUNTER → 2025-04-22 15:31 | Outpatient (BNVA) | payer MEDICARE, MEDICAID, SELFPAY | PROVIDERS: PCP Internal Medicine; Visit Provider Internal Medicine | DX: G20.A1 Parkinson's disease without dyskinesia, without mention of fluctuations (principal); E11.9 Type 2 diabetes mellitus without complications; E78.00 Pure hypercholesterolemia, unspecified; I10 Essential (primary) hypertension; B19.20 Unspecified viral hepatitis C without hepatic coma; K29.70 Gastritis, unspecified, without bleeding; J30.9 Allergic rhinitis, unspecified; R41.89 Other symptoms and signs involving cognitive functions and awareness; N39.46 Mixed incontinence; G47.00 Insomnia, unspecified; F25.9 Schizoaffective disorder, unspecified; F10.20 Alcohol dependence, uncomplicated; F17.200 Nicotine dependence, unspecified, uncomplicated; E66.9 Obesity, unspecified; Z13.39 Encounter for screening examination for other mental health and behavioral disorders | CPT/HCPCS: 96127; 99212 ==

== ENCOUNTER 2025-04-25 10:57 | Outpatient (REF) | payer MEDICARE, MEDICAID, SELFPAY ==
[2025-04-25 11:15] LABS: MANUAL DIFF FLAG NO
[2025-04-25 11:51] LABS: Hematocrit 40.7 % (42.0-52.0); Hemoglobin 12.7 g/dl (14.0-18.0); Imm Gran Abs Auto 0.09 X10*3/uL (0.00-0.03); Imm Gran Pct Auto 1.1 % (0.0-0.4); Lymphocytes Absolute Auto 1.5 X10*3/uL (1.2-4.9); Mean Corpuscular HGB Conc 31.2 g/dl (31.0-36.0); Mean Corpuscular Hemoglobin 26.2 pg (27.0-33.0); Mean Corpuscular Volume 84.1 fL (80.0-98.0); NRBC Abs Auto 0.000 X10*3/uL (0.0-0.012); NRBC Pct Auto 0.0 /100WBC (0.0-0.2); Platelet Count 333 X10*3/uL (160-400); Red Blood Count 4.84 X10*6/uL (4.60-5.80); White Blood Count 8.2 X10*3/uL (4.8-10.8)
[2025-04-25 12:16] LABS: Alanine Aminotransferase 10 U/L (0-40); Albumin Level 4.6 g/dL (3.5-5.0); Alkaline Phosphatase 93 U/L (39-117); Anion Gap 12 (12-20); Aspartate Amino Transferase 39 U/L (5-37); Blood Urea Nitrogen 18 mg/dL (9-16); Calcium 9.8 mg/dL (8.4-10.2); Carbon Dioxide 29 mmol/L (22-29); Chloride 103 mmol/L (96-108); Cholesterol 128 mg/dL (<200); Estimated Glomerular Filt Rate > 60; HDL Cholesterol 55 mg/dL (>40); Potassium 4.6 mmol/L (3.3-5.1); Sodium 139 mmol/L (135-145); Total Protein 8.1 g/dL (6.5-8.0); Triglycerides 185 mg/dL (<150)
--- OUTSIDE RECORDS SUMMARY | 2025-04-25 13:27 | XMS_ITS | Encounter Summary ---
Author Organization [facility] Address [address] [place] [address] Care Team Providers Care Senior Speech Pathologist Name Role Phone Ysasine Rodriguez MD Primary Care Provider Encounter Details Date Type Department Care Team (Late st Contact Info) Description 08/22/[address] [facility] - Main Lab 299 [facility] [place] [address] Jemal Grigsby MD [address] [place] [phone] Metabolic encephalopathy; Rhabdomyolysis; Unspecified convulsions (CMS/HCC [...] * C-reactive protein (08/23/2024 8:09 AM EDT) [facility] C-Reactive Protein <0.29 <=0.50 mg/dL LAB CHEMISTRY METHOD 08/23/2024 11:59 AM [facility] Blood Venous blood specimen / Unknown Venipuncture / Unknown 08/23/2024 8:09 AM EDT 08/23/2024 10:41 AM EDT us Jemal Grigsby MD LAB BLOOD ORDERABLES Final Resul t [facility] [address] [place] [address], * (ABNORMAL) Comprehensive metabolic panel (08/23/2024 8:09 AM EDT) [facility] Sodium 136 133 - 145 mmol/L LAB CHEMISTRY METHOD 08/23/2024 11:56 AM [facility] Potassium 4.3 3.5 - 5.5 mmol/L LAB CHEMISTRY METHOD 08/23/2024 11:56 AM [facility] Chloride 101 96 - 110 mmol/L LAB CHEMISTRY METHOD 08/23/2024 11:56 AM [facility] CO2 26 21 - 32 mmol/L LAB CHEMISTRY METHOD 08/23/2024 11:56 AM [facility] Anion Gap 9 3 - 11 LAB CHEMISTRY METHOD 08/23/2024 11:56 AM [facility] Glucose 112(H) 70 - 100 mg/dL LAB CHEMISTRY METHOD 08/23/2024 11:56 AM [facility] BUN 10 5 - 25 mg/dL LAB CHEMISTRY METHOD 08/23/2024 11:56 AM [facility] Creatinine 0.82 0.70 - 1.30 mg/dL LAB CHEMISTRY METHOD 08/23/2024 11:56 AM [facility] eGFR 97 >=60 mL/min/1. 73m2 LAB CHEMISTRY METHOD 08/23/2024 11:56 AM [facility] Comment:Calculation based on the Chronic Kidney Disease Epidemiology Collaboration (CKD-EPI) equation refit without adjustment for race. BUN/Creatinine Ratio 12.2 LAB CHEMISTRY METHOD 08/23/2024 11:56 AM [facility] Calcium 9.7 8.5 - 10.5 mg/dL LAB CHEMISTRY METHOD 08/23/2024 11:56 AM [facility] AST (SGOT) 14 10 - 42 unit/L LAB CHEMISTRY METHOD 08/23/2024 11:56 AM [facility] ALT (SGPT) 22 10 - 60 unit/L LAB CHEMISTRY METHOD 08/23/2024 11:56 AM [facility] Alkaline Phosphatase 96 42 - 121 unit/L LAB CHEMISTRY METHOD 08/23/2024 11:56 AM [facility] Total Protein 7.8 6.0 - 8.0 g/dL LAB CHEMISTRY METHOD 08/23/2024 11:56 AM [facility] Albumin 3.7 3.2 - 5.0 g/dL LAB CHEMISTRY METHOD 08/23/2024 11:56 AM [facility] Total Bilirubin 0.3 0.0 - 1.4 mg/dL LAB CHEMISTRY METHOD 08/23/2024 11:56 AM [facility] Blood Venous blood specimen / Unknown Venipuncture / Unknown 08/23/2024 8:09 AM EDT 08/23/2024 10:41 AM EDT us Jemal Grigsby MD LAB BLOOD ORDERABLES Final Resul t [facility] [address] [place] [address], * (ABNORMAL) Complete blood count (08/23/2024 8:09 AM EDT) [facility] WBC 6.9 4.8 - 10.8 K/mcL LAB HEMETOLOGY METHOD 08/23/2024 11:25 AM [facility] RBC 5.00 4.50 - 5.50 M/mcL LAB HEMETOLOGY METHOD 08/23/2024 11:25 AM [facility] Hemoglobin 12.8(L) 13.5 - 17.5 g/dL LAB HEMETOLOGY METHOD 08/23/2024 11:25 AM [facility] Hematocrit 40.7(L) 42.0 - 54.0 % LAB HEMETOLOGY METHOD 08/23/2024 11:25 AM [facility] MCV 82.1 79.0 - 98.0 FL LAB HEMETOLOGY METHOD 08/23/2024 11:25 AM [facility] MCH 25.8(L) 27.0 - 32.0 pcg LAB HEMETOLOGY METHOD 08/23/2024 11:25 AM [facility] MCHC 31.4(L) 32.0 - 37.0 g/dL LAB HEMETOLOGY METHOD 08/23/2024 11:25 AM [facility] RDW 15.0 11.0 - 15.0 % LAB HEMETOLOGY METHOD 08/23/2024 11:25 AM [facility] Platelets 326 130 - 400 K/mcL LAB HEMETOLOGY METHOD 08/23/2024 11:25 AM [facility] MPV 10.7 7.0 - 11.0 FL LAB HEMETOLOGY METHOD 08/23/2024 11:25 AM [facility] NRBC 0.0 <1.0 % LAB HEMETOLOGY METHOD 08/23/2024 11:25 AM [facility] NRBC Absolute 0.00 <0.10 K/mcL LAB HEMETOLOGY METHOD 08/23/2024 11:25 AM EDT [facility] Blood Venous blood specimen / Unknown Venipuncture / Unknown 08/23/2024 8:09 AM EDT 08/23/2024 10:39 AM EDT us Jemal Grigsby MD LAB BLOOD ORDERABLES Final Resul t [facility] [address] [place] [address], documented in this encounter Visit Diagnoses Diagnosis Metabolic encephalopathy Rhabdomyolysis Unspecified convulsions (CMS/HCC V24, CMS/HCC V28) documented in this encounter Care Teams Senior Speech Pathologist Relationship Specialty Start Date End Date Yassine Rodriguez MD [address] [place] [address] Dr [address] [place], [place] PCP - General 02/16/24 documented as of this encounter
--- OUTSIDE RECORDS SUMMARY | 2025-04-25 13:27 | XMS_ITS | Clinical Summary ---
Author Organization [address] [facility] Address [address] [place] [address] Phone Care Team Providers Care Senior Technical Editor Name Role Phone Yassine Rodriguez MD Primary Care Provider [phone] Social History Tobacco Use Types Packs/Day Years [...] Insurance MEDICA[place] - [place] MEDICARE Care Teams Senior Technical Editor Relationship Specialty Start Date End Date Yassine Rodriguez MD [address] [place] [address] Dr [address] [place] PCP - General 02/16/24
--- OUTSIDE RECORDS SUMMARY | 2025-04-25 13:27 | XMS_ITS | Encounter Summary ---
Author Organization [facility] Address [address] [place] [address] Care Team Providers Care Quantitative Equity Head Name Role Phone Yassine Rodriguez MD Primary Care Provider Encounter Details Date Type Department Care Team (Late st Contact Info) Description 08/02/2024 Lab Requisition [facility] - Main Lab 299 [facility] [place] [address] Jemal Grigsby MD [address] [place] [phone] Type 2 diabetes mellitus without complications [...] (ABNORMAL) Hemoglobin A1c (08/02/2024 8:53 AM EDT) [facility] Hemoglobin A1C 6.6(H) <6.5 % LAB CHEMISTRY METHOD 08/02/2024 1:31 PM EDT [facility] Mean Bld Glu Estim. 143 mg/dL LAB CHEMISTRY METHOD 08/02/2024 1:31 PM T [facility] Blood Venous blood specimen / Unknown Venipuncture / Unknown 08/02/2024 8:53 AM EDT 08/02/2024 10:24 AM EDT us Jemal Grigsby MD LAB BLOOD ORDERABLES Final Resul t [facility] [address] [place] [address], [place] [phone] * (ABNORMAL) Comprehensive metabolic panel (08/02/2024 8:53 AM EDT) [facility] Sodium 142 133 - 145 mmol/L LAB CHEMISTRY METHOD 08/02/2024 11:37 AM [facility] Potassium 4.1 3.5 - 5.5 mmol/L LAB CHEMISTRY METHOD 08/02/2024 11:37 AM [facility] Chloride 107 96 - 110 mmol/L LAB CHEMISTRY METHOD 08/02/2024 11:37 AM [facility] CO2 26 21 - 32 mmol/L LAB CHEMISTRY METHOD 08/02/2024 11:37 AM [facility] Anion Gap 9 3 - 11 LAB CHEMISTRY METHOD 08/02/2024 11:37 AM [facility] Glucose 110(H) 70 - 100 mg/dL LAB CHEMISTRY METHOD 08/02/2024 11:37 AM [facility] BUN 25 5 - 25 mg/dL LAB CHEMISTRY METHOD 08/02/2024 11:37 AM [facility] Creatinine 0.80 0.70 - 1.30 mg/dL LAB CHEMISTRY METHOD 08/02/2024 11:37 AM [facility] eGFR 98 >=60 mL/min/1. 73m2 LAB CHEMISTRY METHOD 08/02/2024 11:37 AM [facility] Comment:Calculation based on the Chronic Kidney Disease Epidemiology Collaboration (CKD-EPI) equation refit without adjustment for race. BUN/Creatinine Ratio 31.3 LAB CHEMISTRY METHOD 08/02/2024 11:37 AM [facility] Calcium 9.0 8.5 - 10.5 mg/dL LAB CHEMISTRY METHOD 08/02/2024 11:37 AM [facility] AST (SGOT) 27 10 - 42 unit/L LAB CHEMISTRY METHOD 08/02/2024 11:37 AM [facility] ALT (SGPT) 25 10 - 60 unit/L LAB CHEMISTRY METHOD 08/02/2024 11:37 AM [facility] Alkaline Phosphatase 70 42 - 121 unit/L LAB CHEMISTRY METHOD 08/02/2024 11:37 AM [facility] Total Protein 7.1 6.0 - 8.0 g/dL LAB CHEMISTRY METHOD 08/02/2024 11:37 AM [facility] Albumin 3.2 3.2 - 5.0 g/dL LAB CHEMISTRY METHOD 08/02/2024 11:37 AM [facility] Total Bilirubin 0.5 0.0 - 1.4 mg/dL LAB CHEMISTRY METHOD 08/02/2024 11:37 AM [facility] Blood Venous blood specimen / Unknown Venipuncture / Unknown 08/02/2024 8:53 AM EDT 08/02/2024 10:24 AM EDT us Jemal Grigsby MD LAB BLOOD ORDERABLES Final Resul t [facility] [address] [place] [address], [place] [phone] * (ABNORMAL) Complete blood count (08/02/2024 8:53 AM EDT) [facility] WBC 8.9 4.8 - 10.8 K/mcL LAB HEMETOLOGY METHOD 08/02/2024 11:16 AM [facility] RBC 5.20 4.50 - 5.50 M/mcL LAB HEMETOLOGY METHOD 08/02/2024 11:16 AM [facility] Hemoglobin 13.3(L) 13.5 - 17.5 g/dL LAB HEMETOLOGY METHOD 08/02/2024 11:16 AM [facility] Hematocrit 42.0 42.0 - 54.0 % LAB HEMETOLOGY METHOD 08/02/2024 11:16 AM [facility] MCV 81.4 79.0 - 98.0 FL LAB HEMETOLOGY METHOD 08/02/2024 11:16 AM [facility] MCH 25.8(L) 27.0 - 32.0 pcg LAB HEMETOLOGY METHOD 08/02/2024 11:16 AM [facility] MCHC 31.7(L) 32.0 - 37.0 g/dL LAB HEMETOLOGY METHOD 08/02/2024 11:16 AM [facility] RDW 15.2(H) 11.0 - 15.0 % LAB HEMETOLOGY METHOD 08/02/2024 11:16 AM [facility] Platelets 301 130 - 400 K/mcL LAB HEMETOLOGY METHOD 08/02/2024 11:16 AM [facility] MPV 11.7(H) 7.0 - 11.0 FL LAB HEMETOLOGY METHOD 08/02/2024 11:16 AM [facility] NRBC 0.0 <1.0 % LAB HEMETOLOGY METHOD 08/02/2024 11:16 AM EDT [facility] NRBC Absolute 0.00 <0.10 K/mcL LAB HEMETOLOGY METHOD 08/02/2024 11:16 AM EDT [facility] Blood Venous blood specimen / Unknown Venipuncture / Unknown 08/02/2024 8:53 AM EDT 08/02/2024 10:24 AM EDT us Jemal Grigsby MD LAB BLOOD ORDERABLES Final Resul t [facility] [address] [place] [address], documented in this encounter Visit Diagnoses Diagnosis Type 2 diabetes mellitus without complications (CMS/HCC V24, [facility]/HCC V28) documented in this encounter Care Teams Quantitative Equity Head Relationship Specialty Start Date End Date Yassine Rodriguez MD [address] [place] [address] Dr [address] [place] PCP - General 02/16/24 documented as of this encounter
--- OUTSIDE RECORDS SUMMARY | 2025-04-25 13:27 | XMS_ITS | Encounter Summary ---
Author Organization [facility] Address [address] [place] [address] Care Team Providers Care Ent Consultant Name Role Phone Yassine Rodriguez MD Primary Care Provider [phone] Encounter Details Date Type Department Care Team (Late st Contact Info) Description 09/05/2024 Lab Requisition [facility] - Main Lab [address] [facility] [place] [address] Jemal Grigsby MD [address] [place] [phone] Metabolic encephalopathy; Rhabdomyolysis; Unspecified convulsions (CMS/HCC [...] LAB CHEMISTRY METHOD 09/06/2024 11:05 AM EDT [facility] Blood Venous blood specimen / Unknown Venipuncture / Unknown 09/06/2024 7:19 AM EDT 09/06/2024 9:08 AM EDT Jemal Grigsby MD LAB BLOOD ORDERABLES Final Resul t Performing Organization Address [place]/[facility]/ZIP Co de Phone Number [facility] [address] [place] [address], * C-reactive protein (09/06/2024 7:19 AM EDT) Pathologist [facility] C-Reactive Protein <0.29 <=0.50 mg/dL LAB CHEMISTRY METHOD 09/06/2024 10:51 AM EDT [facility] Blood Venous blood specimen / Unknown Venipuncture / Unknown 09/06/2024 7:19 AM EDT 09/06/2024 9:08 AM EDT Jemal Grigsby MD LAB BLOOD ORDERABLES Final Resul t Performing Organization Address [place]/[facility]/ZIP Co de Phone Number [facility] [address] [place] [address], * Comprehensive metabolic panel (09/06/2024 7:19 AM EDT) Pathologist [facility] Sodium 139 133 - 145 mmol/L LAB CHEMISTRY METHOD 09/06/2024 11:06 AM EDT [facility] Potassium 4.2 3.5 - 5.5 mmol/L LAB CHEMISTRY METHOD 09/06/2024 11:06 AM [facility] Chloride 103 96 - 110 mmol/L LAB CHEMISTRY METHOD 09/06/2024 11:06 AM [facility] CO2 27 21 - 32 mmol/L LAB CHEMISTRY METHOD 09/06/2024 11:06 AM [facility] Anion Gap 9 3 - 11 LAB CHEMISTRY METHOD 09/06/2024 11:06 AM [facility] Glucose 99 70 - 100 mg/dL LAB CHEMISTRY METHOD 09/06/2024 11:06 AM [facility] BUN 13 5 - 25 mg/dL LAB CHEMISTRY METHOD 09/06/2024 11:06 AM [facility] Creatinine 0.84 0.70 - 1.30 mg/dL LAB CHEMISTRY METHOD 09/06/2024 11:06 AM [facility] eGFR 97 >=60 mL/min/1. 73m2 LAB CHEMISTRY METHOD 09/06/2024 11:06 AM [facility] Comment:Calculation based on the Chronic Kidney Disease Epidemiology Collaboration (CKD-EPI) equation refit without adjustment for race. BUN/Creatinine Ratio 15.5 LAB CHEMISTRY METHOD 09/06/2024 11:06 AM [facility] Calcium 10.1 8.5 - 10.5 mg/dL LAB CHEMISTRY METHOD 09/06/2024 11:06 AM [facility] AST (SGOT) 17 10 - 42 unit/L LAB CHEMISTRY METHOD 09/06/2024 11:06 AM [facility] ALT (SGPT) 18 10 - 60 unit/L LAB CHEMISTRY METHOD 09/06/2024 11:06 AM [facility] Alkaline Phosphatase 85 42 - 121 unit/L LAB CHEMISTRY METHOD 09/06/2024 11:06 AM [facility] Total Protein 8.0 6.0 - 8.0 g/dL LAB CHEMISTRY METHOD 09/06/2024 11:06 AM [facility] Albumin 3.9 3.2 - 5.0 g/dL LAB CHEMISTRY METHOD 09/06/2024 11:06 AM [facility] Total Bilirubin 0.5 0.0 - 1.4 mg/dL LAB CHEMISTRY METHOD 09/06/2024 11:06 AM [facility] Blood Venous blood specimen / Unknown Venipuncture / Unknown 09/06/2024 7:19 AM EDT 09/06/2024 9:08 AM EDT us Jemal Grigsby MD LAB BLOOD ORDERABLES Final Resul t [facility] [address] [place] [address], * (ABNORMAL) Complete blood count (09/06/2024 7:19 AM EDT) WBC 8.0 4.8 - 10.8 K/mcL LAB HEMETOLOGY METHOD 09/06/2024 10:10 AM [facility] RBC 5.20 4.50 - 5.50 M/mcL LAB HEMETOLOGY METHOD 09/06/2024 10:10 AM [facility] Hemoglobin 13.4(L) 13.5 - 17.5 g/dL LAB HEMETOLOGY METHOD 09/06/2024 10:10 AM [facility] Hematocrit 43.4 42.0 - 54.0 % LAB HEMETOLOGY METHOD 09/06/2024 10:10 AM [facility] MCV 83.3 79.0 - 98.0 FL LAB HEMETOLOGY METHOD 09/06/2024 10:10 AM [facility] MCH 25.7(L) 27.0 - 32.0 pcg LAB HEMETOLOGY METHOD 09/06/2024 10:10 AM EDT [facility] MCHC 30.9(L) 32.0 - 37.0 g/dL LAB HEMETOLOGY METHOD 09/06/2024 10:10 AM EDT [facility] RDW 14.9 11.0 - 15.0 % LAB HEMETOLOGY METHOD 09/06/2024 10:10 AM EDT [facility] Platelets 334 130 - 400 K/mcL LAB HEMETOLOGY METHOD 09/06/2024 10:10 AM EDT [facility] MPV 11.3(H) 7.0 - 11.0 FL LAB HEMETOLOGY METHOD 09/06/2024 10:10 AM EDT [facility] NRBC 0.0 <1.0 % LAB HEMETOLOGY METHOD 09/06/2024 10:10 AM EDT [facility] NRBC Absolute 0.00 <0.10 K/mcL LAB HEMETOLOGY METHOD 09/06/2024 10:10 AM EDT [facility] Blood Venous blood specimen / Unknown Venipuncture / Unknown 09/06/2024 7:19 AM EDT 09/06/2024 9:08 AM EDT us Jemal Grigsby MD LAB BLOOD ORDERABLES Final Resul t [facility] [address] [place] [address], documented in this encounter Visit Diagnoses Diagnosis Metabolic encephalopathy Rhabdomyolysis Unspecified convulsions (CMS/HCC V24, CMS/HCC V28) documented in this encounter Care Teams Ent Consultant Relationship Specialty Start Date End Date Yassine Rodriguez MD [address] [place] [address] Dr Ramos Beba [place] PCP - General 02/16/24 documented as of this encounter
--- OUTSIDE RECORDS SUMMARY | 2025-04-25 13:27 | XMS_ITS | Encounter Summary ---
Author Organization [facility] Address [address] [place] [address] Care Team Providers Care Sharepoint Developer Name Role Phone Yassine Rodriguez MD Primary Care Provider Encounter Details Date Type Department Care Team (Late st Contact Info) Description 09/02/2024 Lab Requisition [facility] - Main Lab [address] [facility] [place] [address] Jemal Grigsby MD [address] [place] [phone] Essential (primary) hypertension; Type 2 diabetes [...] mmol/L LAB CHEMISTRY METHOD 09/02/2024 11:41 AM [facility] Potassium 4.3 3.5 - 5.5 mmol/L LAB CHEMISTRY METHOD 09/02/2024 11:41 AM [facility] Chloride 106 96 - 110 mmol/L LAB CHEMISTRY METHOD 09/02/2024 11:41 AM [facility] CO2 30 21 - 32 mmol/L LAB CHEMISTRY METHOD 09/02/2024 11:41 AM [facility] Anion Gap 5 3 - 11 LAB CHEMISTRY METHOD 09/02/2024 11:41 AM [facility] Glucose 67(L) 70 - 100 mg/dL LAB CHEMISTRY METHOD 09/02/2024 11:41 AM [facility] BUN 8 5 - 25 mg/dL LAB CHEMISTRY METHOD 09/02/2024 11:41 AM [facility] Creatinine 0.75 0.70 - 1.30 mg/dL LAB CHEMISTRY METHOD 09/02/2024 11:41 AM [facility] eGFR 100 >=60 mL/min/1. 73m2 LAB CHEMISTRY METHOD 09/02/2024 11:41 AM [facility] Comment:Calculation based on the Chronic Kidney Disease Epidemiology Collaboration (CKD-EPI) equation refit without adjustment for race. BUN/Creatinine Ratio 10.7 LAB CHEMISTRY METHOD 09/02/2024 11:41 AM [facility] Calcium 9.8 8.5 - 10.5 mg/dL LAB CHEMISTRY METHOD 09/02/2024 11:41 AM [facility] AST (SGOT) 16 10 - 42 unit/L LAB CHEMISTRY METHOD 09/02/2024 11:41 AM [facility] ALT (SGPT) 13 10 - 60 unit/L LAB CHEMISTRY METHOD 09/02/2024 11:41 AM [facility] Alkaline Phosphatase 69 42 - 121 unit/L LAB CHEMISTRY METHOD 09/02/2024 11:41 AM EDT [facility] Total Protein 7.1 6.0 - 8.0 g/dL LAB CHEMISTRY METHOD 09/02/2024 11:41 AM EDT [facility] Albumin 3.4 3.2 - 5.0 g/dL LAB CHEMISTRY METHOD 09/02/2024 11:41 AM EDT [facility] Total Bilirubin 0.5 0.0 - 1.4 mg/dL LAB CHEMISTRY METHOD 09/02/2024 11:41 AM EDT [facility] Blood Venous blood specimen / Unknown Venipuncture / Unknown 09/02/2024 5:17 AM EDT 09/02/2024 10:00 AM EDT us Jemal Grigsby MD LAB BLOOD ORDERABLES Final Resul t [facility] [address] [place] [address], [place] [phone] * (ABNORMAL) Complete blood count (09/02/2024 5:17 AM EDT) WBC 6.1 4.8 - 10.8 K/mcL LAB HEMETOLOGY METHOD 09/02/2024 11:43 AM [facility] RBC 4.60 4.50 - 5.50 M/[facility] LAB [facility]EMETOLOGY METHOD [facility]24 [facility] Hemoglobin 12.0(L) 13.5 - 17.5 g/dL LAB HEMETOLOGY METHOD 09/02/2024 11:43 AM [facility] Hematocrit 38.2(L) 42.0 - 54.0 % LAB HEMETOLOGY METHOD 09/02/2024 11[facility] MCV 82.7 79.0 - 98.0 FL LAB HEMETOLOGY METHOD 09/02/2024 11:43 AM EDT [facility] MCH 26.0(L) 27.0 - 32.0 pcg LAB HEMETOLOGY METHOD 09/02/2024 11:43 AM EDT [facility] MCHC 31.4(L) 32.0 - 37.0 g/dL LAB HEMETOLOGY METHOD 09/02/2024 11:43 AM EDT [facility] RDW 15.1(H) 11.0 - 15.0 % LAB HEMETOLOGY METHOD 09/02/2024 11:43 AM EDT [facility] Platelets 295 130 - 400 K/mcL LAB HEMETOLOGY METHOD 09/02/2024 11:43 AM EDT [facility] MPV 11.5(H) 7.0 - 11.0 FL LAB HEMETOLOGY METHOD 09/02/2024 11:43 AM EDT [facility] NRBC 0.0 <1.0 % LAB HEMETOLOGY METHOD 09/02/2024 11:43 AM EDT [facility] NRBC Absolute 0.00 <0.10 K/mcL LAB HEMETOLOGY METHOD 09/02/2024 11:43 AM T [facility] Blood Venous blood specimen / Unknown Venipuncture / Unknown 09/02/2024 5:17 AM EDT 09/02/2024 10:00 AM EDT us Jemal Grigsby MD LAB BLOOD ORDERABLES Final Resul t [facility] [address] [place] [address], documented in this encounter Visit Diagnoses Diagnosis Essential (primary) hypertension Unspecified essential hypertension Type 2 diabetes mellitus without complications (CMS/HCC V24, CMS/HCC V28) documented in this encounter Care Teams Sharepoint Developer Relationship Specialty Start Date End Date Yassine Rodriguez MD [address] [place] [address] Dr [address] ANNE-MARIE Olivas PCP - General 02/16/24 documented as of this encounter
--- OUTSIDE RECORDS SUMMARY | 2025-04-25 13:27 | XMS_ITS | Encounter Summary ---
Author Organization [facility] Address [address] [place] [address] Care Team Providers Care Driver/Sales Workers Name Role Phone Yassine Rodriguez MD Primary Care Provider Encounter Details Date Type Department Care Team (Late st Contact Info) Description 08/20/[address] [facility] - Main Lab [address] [place] [address] Jemal Grigsby MD [address] [place] [address] 204 [facility] [phone] Type 2 diabetes mellitus without complications [...] LAB CHEMISTRY METHOD 08/21/2024 1:[address] [facility] Potassium 4.6 3.5 - 5.5 mmol/L LAB CHEMISTRY METHOD 08/21/2024 1:06 PM [facility] Chloride 101 96 - 110 mmol/L LAB CHEMISTRY METHOD 08/21/2024 1:06 PM [facility] CO2 24 21 - 32 mmol/L LAB CHEMISTRY METHOD 08/21/2024 1:06 PM [facility] Anion Gap 8 3 - 11 LAB CHEMISTRY METHOD 08/21/2024 1:06 PM [facility] Glucose 172(H) 70 - 100 mg/dL LAB CHEMISTRY METHOD 08/21/2024 1:06 PM [facility] BUN 11 5 - 25 mg/dL LAB CHEMISTRY METHOD 08/21/2024 1:06 PM [facility] Creatinine 0.94 0.70 - 1.30 mg/dL LAB CHEMISTRY METHOD 08/21/2024 1:06 PM [facility] eGFR 90 >=60 mL/min/1. 73m2 LAB CHEMISTRY METHOD 08/21/2024 1:06 PM [facility] Comment:Calculation based on the Chronic Kidney Disease Epidemiology Collaboration (CKD-EPI) equation refit without adjustment for race. BUN/Creatinine Ratio 11.7 LAB CHEMISTRY METHOD 08/21/2024 1:06 PM [facility] Calcium 9.5 8.5 - 10.5 mg/dL LAB CHEMISTRY METHOD 08/21/2024 1:06 PM [facility] Blood Venous blood specimen / Unknown Venipuncture / Unknown 08/21/2024 8:14 AM EDT 08/21/2024 12:18 PM EDT us Jemal Grigsby MD LAB BLOOD ORDERABLES Final Resul t [facility] [address] [place] [address], [place] [phone] * (ABNORMAL) Complete blood count (08/21/2024 8:14 AM EDT) [facility] WBC 5.6 4.8 - 10.8 K/mcL LAB HEMETOLOGY METHOD 08/21/2024 12:42 PM [facility] RBC 4.90 4.50 - 5.50 M/mcL LAB HEMETOLOGY METHOD 08/21/2024 12:42 PM [facility] Hemoglobin 12.6(L) 13.5 - 17.5 g/dL LAB HEMETOLOGY METHOD 08/21/2024 12:42 PM [facility] Hematocrit 40.0(L) 42.0 - 54.0 % LAB HEMETOLOGY METHOD 08/21/2024 12:42 PM [facility] MCV 82.3 79.0 - 98.0 FL LAB HEMETOLOGY METHOD 08/21/2024 12:42 PM [facility] MCH 25.9(L) 27.0 - 32.0 pcg LAB HEMETOLOGY METHOD 08/21/2024 12:42 PM [facility] MCHC 31.5(L) 32.0 - 37.0 g/dL LAB HEMETOLOGY METHOD 08/21/2024 12:42 PM [facility] RDW 14.9 11.0 - 15.0 % LAB HEMETOLOGY METHOD 08/21/2024 12:42 PM [facility] Platelets 318 130 - 400 K/mcL LAB HEMETOLOGY METHOD 08/21/2024 12:42 PM [facility] MPV 11.5(H) 7.0 - 11.0 FL LAB HEMETOLOGY METHOD 08/21/2024 12:42 PM [facility] NRBC 0.0 <1.0 % LAB HEMETOLOGY METHOD 08/21/2024 12:42 PM [facility] NRBC Absolute 0.00 <0.10 K/mcL LAB HEMETOLOGY METHOD 08/21/2024 12:42 PM EDT [facility] Blood Venous blood specimen / Unknown Venipuncture / Unknown 08/21/2024 8:14 AM EDT 08/21/2024 12:18 PM EDT us Jemal Grigsby MD LAB BLOOD ORDERABLES Final Resul t [facility] [address] [place] [address], documented in this encounter Visit Diagnoses Diagnosis Type 2 diabetes mellitus without complications (CMS/HCC V24, CMS/HCC V28) documented in this encounter Care Teams Driver/Sales Workers Relationship Specialty Start Date End Date Yassine Rodriguez MD [address] [place] [address] Dr [address] [place], [place] PCP - General 02/16/24 documented as of this encounter
--- OUTSIDE RECORDS SUMMARY | 2025-04-25 13:27 | XMS_ITS | Encounter Summary ---
Author Organization [facility] Address [address] [place] [address] Care Team Providers Care Motor Tester Name Role Phone Yassine Rodriguez MD Primary Care Provider Encounter Details Date Type Department Care Team (Late st Contact Info) Description 08/13/2024 Lab Requisition [facility] - Main Lab [address] [place] [address] Jemal Grigsby MD [address] [place] [phone] Type 2 diabetes mellitus without complications [...] mg/dL LAB CHEMISTRY METHOD 08/14/2024 11:56 AM [facility] Blood Venous blood specimen / Unknown Venipuncture / Unknown 08/14/2024 7:32 AM EDT 08/14/2024 10:39 AM EDT us Jemal Grigsby MD LAB BLOOD ORDERABLES Final Resul t [facility] [address] [place] [address], [place] [phone] * Basic metabolic panel (08/14/2024 7:32 AM EDT) [facility] Sodium 134 133 - 145 mmol/L LAB CHEMISTRY METHOD 08/14/2024 11:56 AM [facility] Potassium 4.4 3.5 - 5.5 mmol/L LAB CHEMISTRY METHOD 08/14/2024 11:56 AM [facility] Chloride 102 96 - 110 mmol/L LAB CHEMISTRY METHOD 08/14/2024 11:56 AM [facility] CO2 28 21 - 32 mmol/L LAB CHEMISTRY METHOD 08/14/2024 11:56 AM [facility] Anion Gap 4 3 - 11 LAB CHEMISTRY METHOD 08/14/2024 11:56 AM [facility] Glucose 79 70 - 100 mg/dL LAB CHEMISTRY METHOD 08/14/2024 11:56 AM [facility] BUN 11 5 - 25 mg/dL LAB CHEMISTRY METHOD 08/14/2024 11:56 AM [facility] Creatinine 0.90 0.70 - 1.30 mg/dL LAB CHEMISTRY METHOD 08/14/2024 11:56 AM [facility] eGFR 95 >=60 mL/min/1. 73m2 LAB CHEMISTRY METHOD 08/14/2024 11:56 AM EDT [facility] Comment:Calculation based on the Chronic Kidney Disease Epidemiology Collaboration (CKD-EPI) equation refit without adjustment for race. BUN/Creatinine Ratio 12.2 LAB CHEMISTRY METHOD 08/14/2024 11:56 AM EDT [facility] Calcium 9.3 8.5 - 10.5 mg/dL LAB CHEMISTRY METHOD 08/14/2024 11:56 AM T [facility] Blood Venous blood specimen / Unknown Venipuncture / Unknown 08/14/2024 7:32 AM EDT 08/14/2024 10:39 AM EDT us Jemal Grigsby MD LAB BLOOD ORDERABLES Final Resul t [facility] [address] [place] [address], * (ABNORMAL) Complete blood count (08/14/2024 7:32 AM EDT) WBC 6.1 4.8 - 10.8 K/mcL LAB HEMETOLOGY METHOD 08/14/2024 10:58 AM [facility] RBC 4.70 4.50 - 5.50 M/mcL LAB HEMETOLOGY METHOD 08/14/2024 10:58 AM [facility] Hemoglobin 12.1(L) 13.5 - 17.5 g/dL LAB HEMETOLOGY METHOD 08/14/2024 10:58 AM T [facility] Hematocrit 38.9(L) 42.0 - 54.0 % LAB HEMETOLOGY METHOD 08/14/2024 10:58 AM T [facility] MCV 83.7 79.0 - 98.0 FL LAB HEMETOLOGY METHOD 08/14/2024 10:58 AM [facility] MCH 26.0(L) 27.0 - 32.0 pcg LAB HEMETOLOGY METHOD 08/14/2024 10:58 AM EDT [facility] MCHC 31.1(L) 32.0 - 37.0 g/dL LAB HEMETOLOGY METHOD 08/14/2024 10:58 AM EDT [facility] RDW 15.4(H) 11.0 - 15.0 % LAB HEMETOLOGY METHOD 08/14/2024 10:58 AM EDT [facility] Platelets 399 130 - 400 K/mcL LAB HEMETOLOGY METHOD 08/14/2024 10:58 AM EDT [facility] MPV 11.5(H) 7.0 - 11.0 FL LAB HEMETOLOGY METHOD 08/14/2024 10:58 AM EDT [facility] NRBC 0.0 <1.0 % LAB HEMETOLOGY METHOD 08/14/2024 10:58 AM EDT [facility] NRBC Absolute 0.00 <0.10 K/mcL LAB HEMETOLOGY METHOD 08/14/2024 10:58 AM EDT [facility] Blood Venous blood specimen / Unknown Venipuncture / Unknown 08/14/2024 7:32 AM EDT 08/14/2024 10:39 AM EDT us Jemal Grigsby MD LAB BLOOD ORDERABLES Final Resul t [facility] [address] [place] [address], documented in this encounter Visit Diagnoses Diagnosis Type 2 diabetes mellitus without complications (CMS/HCC V24, CMS/HCC V28) documented in this encounter Care Teams Motor Tester Relationship Specialty Start Date End Date Yassine Rodriguez MD [address] [place] [address] Dr Ramos [address] [place] PCP - General 02/16/24 documented as of this encounter
--- OUTSIDE RECORDS SUMMARY | 2025-04-25 13:27 | XMS_ITS | Encounter Summary ---
Author Organization [facility] Address [address] [place] [address] Care Team Providers Care Entry Level Project Coordinator Name Role Phone Yassine Rodriguez MD Primary Care Provider [phone] Encounter Details Date Type Department Care Team (Late st Contact Info) Description 08/06/2024 Lab Requisition [facility] - Main Lab [address] [place] [address] Jemal Grigsby MD [address] [place] [phone] Type 2 diabetes mellitus without complications [...] mmol/L LAB CHEMISTRY METHOD [facility] Potassium 4.6 3.5 - 5.5 mmol/L LAB CHEMISTRY METHOD 08/07/2024 1:[address] [facility] Chloride 99 96 - 110 mmol/L LAB CHEMISTRY METHOD 08/07/2024 1:[address] [facility] CO2 28 21 - 32 mmol/L LAB CHEMISTRY METHOD 08/07/2024 1:[address] [facility] Anion Gap 7 3 - 11 LAB CHEMISTRY METHOD 08/07/2024 1:[address] [facility] Glucose 101(H) 70 - 100 mg/dL LAB CHEMISTRY METHOD 08/07/2024 1:[address] [facility] BUN 11 5 - 25 mg/dL LAB CHEMISTRY METHOD 08/07/2024 1:[address] [facility] Comment:Results verified by repeat testing Creatinine 0.94 0.70 - 1.30 mg/dL LAB CHEMISTRY METHOD 08/07/2024 1:[address] [facility] eGFR 90 >=60 mL/min/1. 73m2 LAB CHEMISTRY METHOD 08/07/2024 1:[address] [facility] Comment:Calculation based on the Chronic Kidney Disease Epidemiology Collaboration (CKD-EPI) equation refit without adjustment for race. BUN/Creatinine Ratio 11.7 LAB CHEMISTRY METHOD 08/07/2024 1:[address] [facility] Calcium 9.9 8.5 - 10.5 mg/dL LAB CHEMISTRY METHOD 08/07/2024 1:[address] [facility] Blood Venous blood specimen / Unknown Venipuncture / Unknown 08/07/2024 7:07 AM EDT 08/07/2024 10:51 AM EDT us Jemal Grigsby MD LAB BLOOD ORDERABLES Final Resul t [facility] [address] [place] [address], * (ABNORMAL) Complete blood count (08/07/2024 7:07 AM EDT) [facility] WBC 7.1 4.8 - 10.8 K/mcL LAB HEMETOLOGY METHOD 08/07/2024 11:[address] [facility] RBC 5.10 4.50 - 5.50 M/mcL LAB HEMETOLOGY METHOD 08/07/2024 11:[address] [facility] Hemoglobin 13.3(L) 13.5 - 17.5 g/dL LAB HEMETOLOGY METHOD 08/07/2024 11:[address] [facility] Hematocrit 42.8 42.0 - 54.0 % LAB HEMETOLOGY METHOD 08/07/2024 11:[address] [facility] MCV 83.4 79.0 - 98.0 FL LAB HEMETOLOGY METHOD 08/07/2024 11:[address] [facility] MCH 25.9(L) 27.0 - 32.0 pcg LAB HEMETOLOGY METHOD 08/07/2024 11:[address] [facility] MCHC 31.1(L) 32.0 - 37.0 g/dL LAB HEMETOLOGY METHOD 08/07/2024 11:[address] [facility] RDW 15.3(H) 11.0 - 15.0 % LAB HEMETOLOGY METHOD 08/07/2024 11:[address] [facility] Platelets 450(H) 130 - 400 K/mcL LAB HEMETOLOGY METHOD 08/07/2024 11:[address] [facility] MPV 11.6(H) 7.0 - 11.0 FL LAB HEMETOLOGY METHOD 08/07/2024 11:[address] [facility] NRBC 0.0 <1.0 % LAB HEMETOLOGY METHOD 08/07/2024 11:09 AM EDT [facility] NRBC Absolute 0.00 <0.10 K/mcL LAB HEMETOLOGY METHOD 08/07/2024 11:09 AM EDT [facility] Blood Venous blood specimen / Unknown Venipuncture / Unknown 08/07/2024 7:07 AM EDT 08/07/2024 10:51 AM EDT us Jemal Grigsby MD LAB BLOOD ORDERABLES Final Resul t [facility] [address] [place] [address], documented in this encounter Visit Diagnoses Diagnosis Type 2 diabetes mellitus without complications (CMS/HCC V24, CMS/HCC V28) documented in this encounter Care Teams Entry Level Project Coordinator Relationship Specialty Start Date End Date Yassine Rodriguez MD [address] [place] [address] Dr [address] [place], [place] PCP - General 02/16/24 documented as of this encounter
--- OUTSIDE RECORDS SUMMARY | 2025-04-25 13:27 | XMS_ITS | Encounter Summary ---
Author Organization [facility] Address [address] [place] [address] Care Team Providers Care Vegetable Grower Name Role Phone Yassine Rodriguez MD Primary Care Provider Encounter Details Date Type Department Care Team (Late st Contact Info) Description 09/19/2024 Lab Requisition [facility] - Main Lab [address] [facility] [place] [address] Jemal Grigsby MD [address] [place] [phone] Metabolic encephalopathy; Rhabdomyolysis; Unspecified convulsions (CMS/HCC [...] LAB CHEMISTRY METHOD 09/20/2024 2:00 PM EDT [facility] Comment:Results verified by repeat testing Blood Venous blood specimen / Unknown 09/20/2024 7:32 AM EDT 09/20/2024 11:10 AM EDT us Jemal Grigsby MD LAB BLOOD ORDERABLES Final Resul t [facility] [address] [place] [address], [place] [phone] * (ABNORMAL) C-reactive protein (09/20/2024 7:32 AM EDT) C-Reactive Protein 14.80(H) <=0.50 mg/dL LAB CHEMISTRY METHOD 09/20/2024 2:00 PM EDT [facility] Comment:Results verified by repeat testing Blood Venous blood specimen / Unknown 09/20/2024 7:32 AM EDT 09/20/2024 11:10 AM EDT us Jemal Grigsby MD LAB BLOOD ORDERABLES Final Resul t [facility] [address] [place] [address], [place] [phone] * (ABNORMAL) Comprehensive metabolic panel (09/20/2024 7:32 AM EDT) [facility] Sodium 131(L) 133 - 145 mmol/L LAB CHEMISTRY METHOD 09/20/2024 1:24 PM [facility] Potassium 4.1 3.5 - 5.5 mmol/L LAB CHEMISTRY METHOD 09/20/2024 1:24 PM [facility] Chloride 96 96 - 110 mmol/L LAB CHEMISTRY METHOD 09/20/2024 1:24 PM [facility] CO2 23 21 - 32 mmol/L LAB CHEMISTRY METHOD 09/20/2024 1:24 PM [facility] Anion Gap 12(H) 3 - 11 LAB CHEMISTRY METHOD 09/20/2024 1:24 PM [facility] Glucose 86 70 - 100 mg/dL LAB CHEMISTRY METHOD 09/20/2024 1:24 PM [facility] BUN 13 5 - 25 mg/dL LAB CHEMISTRY METHOD 09/20/2024 1:24 PM [facility] Creatinine 0.89 0.70 - 1.30 mg/dL LAB CHEMISTRY METHOD 09/20/2024 1:24 PM [facility] eGFR 95 >=60 mL/min/1. 73m2 LAB CHEMISTRY METHOD 09/20/2024 1:24 PM EDT [facility] Comment:Calculation based on the Chronic Kidney Disease Epidemiology Collaboration (CKD-EPI) equation refit without adjustment for race. BUN/Creatinine Ratio 14.6 LAB CHEMISTRY METHOD 09/20/2024 1:24 PM EDT [facility] Calcium 9.0 8.5 - 10.5 mg/dL LAB CHEMISTRY METHOD 09/20/2024 1:24 PM [facility] AST (SGOT) 15 10 - 42 unit/L LAB CHEMISTRY METHOD 09/20/2024 1:24 PM [facility] ALT (SGPT) 12 10 - 60 unit/L LAB CHEMISTRY METHOD 09/20/2024 1:24 PM [facility] Alkaline Phosphatase 71 42 - 121 unit/L LAB CHEMISTRY METHOD 09/20/2024 1:24 PM [facility] Total Protein 7.4 6.0 - 8.0 g/dL LAB CHEMISTRY METHOD 09/20/2024 1:24 PM [facility] Albumin 3.5 3.2 - 5.0 g/dL LAB CHEMISTRY METHOD 09/20/2024 1:24 PM [facility] Total Bilirubin 0.6 0.0 - 1.4 mg/dL LAB CHEMISTRY METHOD 09/20/2024 1:24 PM [facility] Blood Venous blood specimen / Unknown 09/20/2024 7:32 AM EDT 09/20/2024 11:10 AM EDT us Jemal Grigsby MD LAB BLOOD ORDERABLES Final Resul t [facility] [address] [place] [address], [place] [phone] * (ABNORMAL) Complete blood count (09/20/2024 7:32 AM EDT) WBC 11.5(H) 4.8 - 10.8 K/[facility] LAB HEMETOLOGY METHOD 09/20/2024 11:31 AM [facility] RBC 4.70 4.50 - 5.50 M/[facility] LAB HEMETOLOGY METHOD 09/20/2024 11:31 AM [facility] Hemoglobin 12.1(L) 13.5 - 17.5 g/dL LAB HEMETOLOGY METHOD 09/20/2024 11:31 AM [facility] Hematocrit 38.1(L) 42.0 - 54.0 % LAB HEMETOLOGY METHOD 09/20/2024 11:31 AM [facility] MCV 81.2 79.0 - 98.0 FL LAB HEMETOLOGY METHOD 09/20/2024 11:31 AM [facility] MCH 25.8(L) 27.0 - 32.0 pcg LAB HEMETOLOGY METHOD 09/20/2024 11:31 AM [facility] MCHC 31.8(L) 32.0 - 37.0 g/dL LAB HEMETOLOGY METHOD 09/20/2024 11:31 AM [facility] RDW 15.1(H) 11.0 - 15.0 % LAB HEMETOLOGY METHOD 09/20/2024 11:31 AM [facility] Platelets 275 130 - 400 K/[facility] LAB HEMETOLOGY METHOD 09/20/2024 11:31 AM [facility] MPV 11.2(H) 7.0 - 11.0 FL LAB HEMETOLOGY METHOD 09/20/2024 11:31 AM [facility] NRBC 0.0 <1.0 % LAB HEMETOLOGY METHOD 09/20/2024 11:31 AM [facility] NRBC Absolute 0.00 <0.10 K/[facility] LAB HEMETOLOGY METHOD 09/20/2024 11:31 AM EDT [facility] Blood Venous blood specimen / Unknown 09/20/2024 7:32 AM EDT 09/20/2024 11:10 AM EDT us Jemal Grigsby MD LAB BLOOD ORDERABLES Final Resul t [facility] [address] [place] [address], documented in this encounter Visit Diagnoses Diagnosis Metabolic encephalopathy Rhabdomyolysis Unspecified convulsions (CMS/HCC V24, CMS/HCC V28) Chronic viral hepatitis C (CMS/HCC V24, [facility]/HCC V28) Chronic hepatitis C without mention of hepatic coma Dysarthria and anarthria Type 2 diabetes mellitus without complications (CMS/HCC V24, [facility]/HCC V28) documented in this encounter Care Teams Vegetable Grower Relationship Specialty Start Date End Date Yassine Rodriguez MD [address] [place] [address] Dr [address] [place] PCP - General 02/16/24 documented as of this encounter
--- OUTSIDE RECORDS SUMMARY | 2025-04-25 13:28 | XMS_ITS | Encounter Summary ---
Author Organization [facility] Address [address] [place] [address] Care Team Providers Care Editorial Assistant Name Role Phone Yassine Rodriguez MD Primary Care Provider Encounter Details Date Type Department Care Team (Late st Contact Info) Description 08/29/2024 Lab Requisition [facility] - Main Lab [address] [place] [address] Jemal Grigsby MD [address] [place] [phone] Essential (primary) hypertension Social History Tobacco [...] unit/L LAB CHEMISTRY METHOD 08/29/2024 11:58 AM [facility] Blood Venous blood specimen / Unknown Venipuncture / Unknown 08/29/2024 5:55 AM EDT 08/29/2024 10:39 AM EDT us Jemal Grigsby MD LAB BLOOD ORDERABLES Final Resul t [facility] [address] [place] [address], [place] [phone] * (ABNORMAL) Comprehensive metabolic panel (08/29/2024 5:55 AM EDT) Sodium 136 133 - 145 mmol/L LAB CHEMISTRY METHOD 08/29/2024 11:58 AM [facility] Potassium 4.7 3.5 - 5.5 mmol/L LAB CHEMISTRY METHOD 08/29/2024 11:58 AM [facility] Chloride 101 96 - 110 mmol/L LAB CHEMISTRY METHOD 08/29/2024 11:58 AM [facility] CO2 28 21 - 32 mmol/L LAB CHEMISTRY METHOD 08/29/2024 11:58 AM [facility] Anion Gap 7 3 - 11 LAB CHEMISTRY METHOD 08/29/2024 11:58 AM [facility] Glucose 73 70 - 100 mg/dL LAB CHEMISTRY METHOD 08/29/2024 11:58 AM [facility] BUN 11 5 - 25 mg/dL LAB CHEMISTRY METHOD 08/29/2024 11:58 AM [facility] Creatinine 0.75 0.70 - 1.30 mg/dL LAB CHEMISTRY METHOD 08/29/2024 11:58 AM [facility] eGFR 100 >=60 mL/min/1. 73m2 LAB CHEMISTRY METHOD 08/29/2024 11:58 AM [facility] Comment:Calculation based on the Chronic Kidney Disease Epidemiology Collaboration (CKD-EPI) equation refit without adjustment for race. BUN/Creatinine Ratio 14.7 LAB CHEMISTRY METHOD 08/29/2024 11:58 AM [facility] Calcium 9.7 8.5 - 10.5 mg/dL LAB CHEMISTRY METHOD 08/29/2024 11:58 AM [facility] AST (SGOT) 15 10 - 42 unit/L LAB CHEMISTRY METHOD 08/29/2024 11:58 AM [facility] ALT (SGPT) 9(L) 10 - 60 unit/L LAB CHEMISTRY METHOD 08/29/2024 11:58 AM [facility] Alkaline Phosphatase 66 42 - 121 unit/L LAB CHEMISTRY METHOD 08/29/2024 11:58 AM [facility] Total Protein 7.1 6.0 - 8.0 g/dL LAB CHEMISTRY METHOD 08/29/2024 11:58 AM [facility] Albumin 3.4 3.2 - 5.0 g/dL LAB CHEMISTRY METHOD 08/29/2024 11:58 AM [facility] Total Bilirubin 0.5 0.0 - 1.4 mg/dL LAB CHEMISTRY METHOD 08/29/2024 11:58 AM [facility] Blood Venous blood specimen / Unknown Venipuncture / Unknown 08/29/2024 5:55 AM EDT 08/29/2024 10:39 AM EDT us Jemal Grigsby MD LAB BLOOD ORDERABLES Final Resul t [facility] [address] [place] [address], * (ABNORMAL) Complete blood count (08/29/2024 5:55 AM EDT) WBC 5.9 4.8 - 10.8 K/mcL LAB HEMETOLOGY METHOD 08/29/2024 11:25 AM [facility] RBC 4.80 4.50 - 5.50 M/mcL LAB HEMETOLOGY METHOD 08/29/2024 11:25 AM [facility] Hemoglobin 12.5(L) 13.5 - 17.5 g/dL LAB HEMETOLOGY METHOD 08/29/2024 11:25 AM [facility] Hematocrit 40.0(L) 42.0 - 54.0 % LAB HEMETOLOGY METHOD 08/29/2024 11:25 AM [facility] MCV 83.0 79.0 - 98.0 FL LAB HEMETOLOGY METHOD 08/29/2024 11:25 AM [facility] MCH 25.9(L) 27.0 - 32.0 pcg LAB HEMETOLOGY METHOD 08/29/2024 11:25 AM [facility] MCHC 31.3(L) 32.0 - 37.0 g/dL LAB HEMETOLOGY METHOD 08/29/2024 11:25 AM [facility] RDW 14.8 11.0 - 15.0 % LAB HEMETOLOGY METHOD 08/29/2024 11:25 AM [facility] Platelets 270 130 - 400 K/mcL LAB HEMETOLOGY METHOD 08/29/2024 11:25 AM [facility] MPV 11.5(H) 7.0 - 11.0 FL LAB HEMETOLOGY METHOD 08/29/2024 11:25 AM [facility] NRBC 0.0 <1.0 % LAB HEMETOLOGY METHOD 08/29/2024 11:25 AM [facility] NRBC Absolute 0.00 <0.10 K/mcL LAB HEMETOLOGY METHOD 08/29/2024 11:25 AM [facility] Blood Venous blood specimen / Unknown Venipuncture / Unknown 08/29/2024 5:55 AM EDT 08/29/2024 10:39 AM EDT us Jemal Grigsby MD LAB BLOOD ORDERABLES Final Resul t [facility] [address] [place] [address], documented in this encounter Visit Diagnoses Diagnosis Essential (primary) hypertension Unspecified essential hypertension documented in this encounter Care Teams Editorial Assistant Relationship Specialty Start Date End Date Yassine Rodriguez MD [address] [place] [address] Dr [address] [place], [place] PCP - General 02/16/24 documented as of this encounter
--- OUTSIDE RECORDS SUMMARY | 2025-04-25 13:28 | XMS_ITS | Encounter Summary ---
Author Organization [facility] Address [address] [place] [address] Care Team Providers Care Cash Applications Associate Name Role Phone Yassine Rodriguez MD Primary Care Provider Encounter Details Date Type Department Care Team (Late st Contact Info) Description 08/15/2024 Lab Requisition [facility] - Main Lab [address] [facility] [place] [address] Jemal Grigsby MD [address] [place] [phone] Metabolic encephalopathy; Rhabdomyolysis; Unspecified convulsions (CMS/HCC [...] (ABNORMAL) C-reactive protein (08/16/2024 8:37 AM EDT) [facility] C-Reactive Protein 0.60(H) <=0.50 mg/dL LAB CHEMISTRY METHOD 08/16/2024 12:[address] [facility] Blood Venous blood specimen / Unknown Venipuncture / Unknown 08/16/2024 8:37 AM EDT 08/16/2024 10:22 AM EDT us Jemal Grigsby MD LAB BLOOD ORDERABLES Final Resul t [facility] [address] [place] [address], [place] [phone] * (ABNORMAL) Comprehensive metabolic panel (08/16/2024 8:37 AM EDT) [facility] Sodium 135 133 - 145 mmol/L LAB CHEMISTRY METHOD 08/16/2024 12:[address] [facility] Potassium 4.4 3.5 - 5.5 mmol/L LAB CHEMISTRY METHOD 08/16/2024 12:[address] [facility] Chloride 102 96 - 110 mmol/L LAB CHEMISTRY METHOD 08/16/2024 12:[address] [facility] CO2 28 21 - 32 mmol/L LAB CHEMISTRY METHOD 08/16/2024 12:[address] [facility] Anion Gap 5 3 - 11 LAB CHEMISTRY METHOD 08/16/2024 12:[address] [facility] Glucose 121(H) 70 - 100 mg/dL LAB CHEMISTRY METHOD 08/16/2024 12:[address] [facility] BUN 7 5 - 25 mg/dL LAB CHEMISTRY METHOD 08/16/2024 12:[address] [facility] Creatinine 0.89 0.70 - 1.30 mg/dL LAB CHEMISTRY METHOD 08/16/2024 12:[address] [facility] eGFR 95 >=60 mL/min/1. 73m2 LAB CHEMISTRY METHOD 08/16/2024 12:16 PM T [facility] Comment:Calculation based on the Chronic Kidney Disease Epidemiology Collaboration (CKD-EPI) equation refit without adjustment for race. BUN/Creatinine Ratio 7.9 LAB CHEMISTRY METHOD 08/16/2024 12:16 PM T [facility] Calcium 9.1 8.5 - 10.5 mg/dL LAB CHEMISTRY METHOD 08/16/2024 12:16 PM T [facility] AST (SGOT) 11 10 - 42 unit/L LAB CHEMISTRY METHOD 08/16/2024 12:[address] [facility] ALT (SGPT) 22 10 - 60 unit/L LAB CHEMISTRY METHOD 08/16/2024 12:[address] [facility] Alkaline Phosphatase 84 42 - 121 unit/L LAB CHEMISTRY METHOD 08/16/2024 12:[address] [facility] Total Protein 7.0 6.0 - 8.0 g/dL LAB CHEMISTRY METHOD 08/16/2024 12:[address] [facility] Albumin 3.3 3.2 - 5.0 g/dL LAB CHEMISTRY METHOD 08/16/2024 12:[address] [facility] Total Bilirubin 0.2 0.0 - 1.4 mg/dL LAB CHEMISTRY METHOD 08/16/2024 12:[address] [facility] Blood Venous blood specimen / Unknown Venipuncture / Unknown 08/16/2024 8:37 AM EDT 08/16/2024 10:22 AM EDT us Jemal Grigsby MD LAB BLOOD ORDERABLES Final Resul t [facility] [address] [place] [address], * (ABNORMAL) Complete blood count (08/16/2024 8:37 AM EDT) WBC 5.8 4.8 - 10.8 K/mcL LAB HEMETOLOGY METHOD 08/16/2024 11:[address] [facility] RBC 4.50 4.50 - 5.50 M/mcL LAB HEMETOLOGY METHOD 08/16/2024 11:[address] [facility] Hemoglobin 11.7(L) 13.5 - 17.5 g/dL LAB HEMETOLOGY METHOD 08/16/2024 11:[address] [facility] Hematocrit 37.9(L) 42.0 - 54.0 % LAB HEMETOLOGY METHOD 08/16/2024 11:[address] [facility] MCV 83.7 79.0 - 98.0 FL LAB HEMETOLOGY METHOD 08/16/2024 11:[address] [facility] MCH 25.8(L) 27.0 - 32.0 pcg LAB HEMETOLOGY METHOD 08/16/2024 11:[address] [facility] MCHC 30.9(L) 32.0 - 37.0 g/dL LAB HEMETOLOGY METHOD 08/16/2024 11:[address] [facility] RDW 15.1(H) 11.0 - 15.0 % LAB HEMETOLOGY METHOD 08/16/2024 11:[address] [facility] Platelets 364 130 - 400 K/mcL LAB HEMETOLOGY METHOD 08/16/2024 11:[address] [facility] MPV 11.4(H) 7.0 - 11.0 FL LAB HEMETOLOGY METHOD 08/16/2024 11:[address] [facility] NRBC 0.0 <1.0 % LAB HEMETOLOGY METHOD 08/16/2024 11:[address] [facility] NRBC Absolute 0.00 <0.10 K/[facility] LAB HEMETOLOGY METHOD 08/16/2024 11:14 AM EDT [facility] Blood Venous blood specimen / Unknown Venipuncture / Unknown 08/16/2024 8:37 AM EDT 08/16/2024 10:22 AM EDT us Jemal Grigsby MD LAB BLOOD ORDERABLES Final Resul t [facility] [address] [place] [address], documented in this encounter Visit Diagnoses Diagnosis Metabolic encephalopathy Rhabdomyolysis Unspecified convulsions (CMS/HCC V24, CMS/HCC V28) documented in this encounter Care Teams Cash Applications Associate Relationship Specialty Start Date End Date Yassine Rodriguez MD [address] [place] [address] Dr [address] [place] PCP - General 02/16/24 documented as of this encounter
--- OUTSIDE RECORDS SUMMARY | 2025-04-25 13:28 | XMS_ITS | Encounter Summary ---
Author Organization [facility] Address [address] [place] [address] Care Team Providers Care Data Migration Consultant Name Role Phone Yassine Rodriguez MD Primary Care Provider [phone] Encounter Details Date Type Department Care Team (Late st Contact Info) Description 08/29/2024 Lab Requisition [facility] - Main Lab [address] [facility] [place] [address] Jemal Grigsby MD [address] [place] [phone] Metabolic encephalopathy; Rhabdomyolysis; Unspecified convulsions (CMS/HCC [...] * Creatine kinase (08/30/2024 8:34 AM EDT) [facility] Total CK 59 22 - 269 unit/L LAB CHEMISTRY METHOD 08/30/2024 11:17 AM EDT [facility] Blood Venous blood specimen / Unknown Venipuncture / Unknown 08/30/2024 8:34 AM EDT 08/30/2024 9:56 AM EDT us Jemal Grigsby MD LAB BLOOD ORDERABLES Final Resul t [facility] [address] [place] [address], * C-reactive protein (08/30/2024 8:34 AM EDT) [facility] C-Reactive Protein <0.29 <=0.50 mg/dL LAB CHEMISTRY METHOD 08/30/2024 11:16 AM [facility] Blood Venous blood specimen / Unknown Venipuncture / Unknown 08/30/2024 8:34 AM EDT 08/30/2024 9:56 AM EDT Jemal Grigsby MD LAB BLOOD ORDERABLES Final Resul t [facility] [address] [place] [address], [place] [phone] * (ABNORMAL) Comprehensive metabolic panel (08/30/2024 8:34 AM EDT) [facility] Sodium 136 133 - 145 mmol/L LAB CHEMISTRY METHOD 08/30/2024 11:17 AM [facility] Potassium 4.3 3.5 - 5.5 mmol/L LAB CHEMISTRY METHOD 08/30/2024 11:17 AM [facility] Chloride 103 96 - 110 mmol/L LAB CHEMISTRY METHOD 08/30/2024 11:17 AM [facility] CO2 26 21 - 32 mmol/L LAB CHEMISTRY METHOD 08/30/2024 11:17 AM [facility] Anion Gap 7 3 - 11 LAB CHEMISTRY METHOD 08/30/2024 11:17 AM [facility] Glucose 138(H) 70 - 100 mg/dL LAB CHEMISTRY METHOD 08/30/2024 11:17 AM [facility] BUN 12 5 - 25 mg/dL LAB CHEMISTRY METHOD 08/30/2024 11:17 AM [facility] Creatinine 0.85 0.70 - 1.30 mg/dL LAB CHEMISTRY METHOD 08/30/2024 11:17 AM [facility] eGFR 96 >=60 mL/min/1. 73m2 LAB CHEMISTRY METHOD 08/30/2024 11:17 AM [facility] Comment:Calculation based on the Chronic Kidney Disease Epidemiology Collaboration (CKD-EPI) equation refit without adjustment for race. BUN/Creatinine Ratio 14.1 LAB CHEMISTRY METHOD 08/30/2024 11:17 AM [facility] Calcium 9.6 8.5 - 10.5 mg/dL LAB CHEMISTRY METHOD 08/30/2024 11:17 AM [facility] AST (SGOT) 13 10 - 42 unit/L LAB CHEMISTRY METHOD 08/30/2024 11:17 AM [facility] ALT (SGPT) 10 10 - 60 unit/L LAB CHEMISTRY METHOD 08/30/2024 11:17 AM [facility] Alkaline Phosphatase 80 42 - 121 unit/L LAB CHEMISTRY METHOD 08/30/2024 11:17 AM [facility] Total Protein 7.6 6.0 - 8.0 g/dL LAB CHEMISTRY METHOD 08/30/2024 11:17 AM [facility] Albumin 3.7 3.2 - 5.0 g/dL LAB CHEMISTRY METHOD 08/30/2024 11:17 AM [facility] Total Bilirubin 0.5 0.0 - 1.4 mg/dL LAB CHEMISTRY METHOD 08/30/2024 11:17 AM [facility] Blood Venous blood specimen / Unknown Venipuncture / Unknown 08/30/2024 8:34 AM EDT 08/30/2024 9:56 AM EDT us Jemal Grigsby MD LAB BLOOD ORDERABLES Final Resul t [facility] [address] [place] [address], [place] [phone] * (ABNORMAL) Complete blood count (08/30/2024 8:34 AM EDT) WBC 6.8 4.8 - 10.8 K/mcL LAB HEMETOLOGY METHOD 08/30/2024 10:45 AM [facility] RBC 4.90 4.50 - 5.50 M/mcL LAB HEMETOLOGY METHOD 08/30/2024 10:45 AM [facility] Hemoglobin 12.8(L) 13.5 - 17.5 g/dL LAB HEMETOLOGY METHOD 08/30/2024 10:45 AM [facility] Hematocrit 40.3(L) 42.0 - 54.0 % LAB HEMETOLOGY METHOD 08/30/2024 10:45 AM [facility] MCV 82.2 79.0 - 98.0 FL LAB HEMETOLOGY METHOD 08/30/2024 10:45 AM [facility] MCH 26.1(L) 27.0 - 32.0 pcg LAB HEMETOLOGY METHOD 08/30/2024 10:45 AM [facility] MCHC 31.8(L) 32.0 - 37.0 g/dL LAB HEMETOLOGY METHOD 08/30/2024 10:45 AM [facility] RDW 14.7 11.0 - 15.0 % LAB HEMETOLOGY METHOD 08/30/2024 10:45 AM [facility] Platelets 302 130 - 400 K/mcL LAB HEMETOLOGY METHOD 08/30/2024 10:45 AM [facility] MPV 11.5(H) 7.0 - 11.0 FL LAB HEMETOLOGY METHOD 08/30/2024 10:45 AM [facility] NRBC 0.0 <1.0 % LAB HEMETOLOGY METHOD 08/30/2024 10:45 AM [facility] NRBC Absolute 0.00 <0.10 K/mcL LAB HEMETOLOGY METHOD 08/30/2024 10:45 AM EDT [facility] Blood Venous blood specimen / Unknown Venipuncture / Unknown 08/30/2024 8:34 AM EDT 08/30/2024 9:56 AM EDT us Jemal Grigsby MD LAB BLOOD ORDERABLES Final Resul t [facility] [address] [place] [address], documented in this encounter Visit Diagnoses Diagnosis Metabolic encephalopathy Rhabdomyolysis Unspecified convulsions ([facility]/HCC V24, [facility]/HCC V28) Type 2 diabetes mellitus without complications ([facility]/HCC V24, [facility]/HCC V28) Chronic viral hepatitis C ([facility]/HCC V24, [facility] V28) Chronic hepatitis C without mention of hepatic coma Dysarthria and anarthria documented in this encounter Care Teams Data Migration Consultant Relationship Specialty Start Date End Date Yassine Rodriguez MD [address] [place] [address] Dr [address] [place], [place] PCP - General 02/16/24 documented as of this encounter
--- OUTSIDE RECORDS SUMMARY | 2025-04-25 13:28 | XMS_ITS | Encounter Summary ---
Author Organization [facility] Address [address] [place] [address] Care Team Providers Care Data Processing Operator Name Role Phone Yassine Rodriguez MD Primary Care Provider Encounter Details Date Type Department Care Team (Late st Contact Info) Description 09/26/2024 Lab Requisition [facility] - Main Lab [address] [facility] [place] [address] Jemal Grigsby MD [address] [place] [phone] Metabolic encephalopathy; Rhabdomyolysis; Unspecified convulsions (CMS/HCC [...] * Creatine kinase (09/27/2024 6:40 AM EDT) [facility] Total CK 52 22 - 269 unit/L LAB CHEMISTRY METHOD 09/27/2024 9:32 AM EDT [facility] Blood Venous blood specimen / Unknown Venipuncture / Unknown 09/27/2024 6:40 AM EDT 09/27/2024 8:37 AM EDT us Jemal Grigsby MD LAB BLOOD ORDERABLES Final Resul t [facility] [address] [place] [address], * (ABNORMAL) C-reactive protein (09/27/2024 6:40 AM EDT) [facility] C-Reactive Protein 1.58(H) <=0.50 mg/dL LAB CHEMISTRY METHOD 09/27/2024 9:[address] [facility] Blood Venous blood specimen / Unknown Venipuncture / Unknown 09/27/2024 6:40 AM EDT 09/27/2024 8:37 AM EDT us Jemal Grigsby MD LAB BLOOD ORDERABLES Final Resul t [facility] [address] [place] [address], [place] [phone] * (ABNORMAL) Comprehensive metabolic panel (09/27/2024 6:40 AM EDT) [facility] Sodium 135 133 - 145 mmol/L LAB CHEMISTRY METHOD 09/27/2024 9:[address] [facility] Potassium 4.5 3.5 - 5.5 mmol/L LAB CHEMISTRY METHOD 09/27/2024 9:[address] [facility] Chloride 104 96 - 110 mmol/L LAB CHEMISTRY METHOD 09/27/2024 9:[address] [facility] CO2 26 21 - 32 mmol/L LAB CHEMISTRY METHOD 09/27/2024 9:[address] [facility] Anion Gap 5 3 - 11 LAB CHEMISTRY METHOD 09/27/2024 9:[address] [facility] Glucose 107(H) 70 - 100 mg/dL LAB CHEMISTRY METHOD 09/27/2024 9:[address] [facility] BUN 10 5 - 25 mg/dL LAB CHEMISTRY METHOD 09/27/2024 9:[address] [facility] Creatinine 0.77 0.70 - 1.30 mg/dL LAB CHEMISTRY METHOD 09/27/2024 9:[address] [facility] eGFR 99 >=60 mL/min/1. 73m2 LAB CHEMISTRY METHOD 09/27/2024 9:[address] [facility] Comment:Calculation based on the Chronic Kidney Disease Epidemiology Collaboration (CKD-EPI) equation refit without adjustment for race. BUN/Creatinine Ratio 13.0 LAB CHEMISTRY METHOD 09/27/2024 9:[address] [facility] Calcium 9.3 8.5 - 10.5 mg/dL LAB CHEMISTRY METHOD 09/27/2024 9:[address] [facility] AST (SGOT) 11 10 - 42 unit/L LAB CHEMISTRY METHOD 09/27/2024 9:[address] [facility] ALT (SGPT) 14 10 - 60 unit/L LAB CHEMISTRY METHOD 09/27/2024 9:[address] [facility] Alkaline Phosphatase 91 42 - 121 unit/L LAB CHEMISTRY METHOD 09/27/2024 9:[address] [facility] Total Protein 7.4 6.0 - 8.0 g/dL LAB CHEMISTRY METHOD 09/27/2024 9:[address] [facility] Albumin 3.2 3.2 - 5.0 g/dL LAB CHEMISTRY METHOD 09/27/2024 9:[address] [facility] Total Bilirubin 0.2 0.0 - 1.4 mg/dL LAB CHEMISTRY METHOD 09/27/2024 9:[address] [facility] Blood Venous blood specimen / Unknown Venipuncture / Unknown 09/27/2024 6:40 AM EDT 09/27/2024 8:37 AM EDT us Jemal Grigsby MD LAB BLOOD ORDERABLES Final Resul t [facility] [address] [place] [address], [place] [phone] * (ABNORMAL) Complete blood count (09/27/2024 6:40 AM EDT) WBC 8.4 4.8 - 10.8 K/mcL LAB HEMETOLOGY METHOD 09/27/2024 9:[address] [facility] RBC 4.80 4.50 - 5.50 M/mcL LAB HEMETOLOGY METHOD 09/27/2024 9:[address] [facility] Hemoglobin 12.5(L) 13.5 - 17.5 g/dL LAB HEMETOLOGY METHOD 09/27/2024 9:[address] [facility] Hematocrit 39.5(L) 42.0 - 54.0 % LAB HEMETOLOGY METHOD 09/27/2024 9:[address] [facility] MCV 82.0 79.0 - 98.0 FL LAB HEMETOLOGY METHOD 09/27/2024 9:[address] [facility] MCH 25.9(L) 27.0 - 32.0 pcg LAB HEMETOLOGY METHOD 09/27/2024 9:[address] [facility] MCHC 31.6(L) 32.0 - 37.0 g/dL LAB HEMETOLOGY METHOD 09/27/2024 9:[address] [facility] RDW 14.6 11.0 - 15.0 % LAB HEMETOLOGY METHOD 09/27/2024 9:[address] [facility] Platelets 465(H) 130 - 400 K/[facility] LAB HEMETOLOGY METHOD 09/27/2024 9:[address] [facility] MPV 10.6 7.0 - 11.0 FL LAB HEMETOLOGY METHOD 09/27/2024 9:[address] [facility] NRBC 0.0 <1.0 % LAB HEMETOLOGY METHOD 09/27/2024 9:[address] [facility] NRBC Absolute 0.00 <0.10 K/[facility] LAB HEMETOLOGY METHOD 09/27/2024 9:13 AM EDT [facility] Blood Venous blood specimen / Unknown Venipuncture / Unknown 09/27/2024 6:40 AM EDT 09/27/2024 8:37 AM EDT us Jemal Grigsby MD LAB BLOOD ORDERABLES Final Resul t [facility] [address] [place] [address], documented in this encounter Visit Diagnoses Diagnosis Metabolic encephalopathy Rhabdomyolysis Unspecified convulsions (CMS/HCC V24, [facility]/HCC V28) Chronic viral hepatitis C ([facility]/HCC V24, [facility]/HCC V28) Chronic hepatitis C without mention of hepatic coma Dysarthria and anarthria Type 2 diabetes mellitus without complications (CMS/HCC V24, [facility]/HCC V28) documented in this encounter Care Teams Data Processing Operator Relationship Specialty Start Date End Date Yassine Rodriguez MD [address] [place] [address] Dr [address] [place], [place] PCP - General 02/16/24 documented as of this encounter
--- OUTSIDE RECORDS SUMMARY | 2025-04-25 13:28 | XMS_ITS | Encounter Summary ---
Author Organization [facility] Address [address] [place] [address] Care Team Providers Care Network Support Analyst Name Role Phone Yassine Rodriguez MD Primary Care Provider Encounter Details Date Type Department Care Team (Late st Contact Info) Description 09/12/2024 Lab Requisition [facility] - Main Lab [address] [facility] [place] [address] Jemal Grigsby MD [address] [place] [phone] Metabolic encephalopathy; Rhabdomyolysis; Unspecified convulsions (CMS/HCC [...] LAB CHEMISTRY METHOD 09/13/2024 9:56 AM EDT [facility] Blood Venous blood specimen / Unknown Venipuncture / Unknown 09/13/2024 7:36 AM EDT 09/13/2024 8:50 AM EDT Jemal Grigsby MD LAB BLOOD ORDERABLES Final Resul t Performing Organization Address [facility]/ZIP Co de Phone Number [facility] [address] [place] [address], * C-reactive protein (09/13/2024 7:36 AM EDT) Pathologist [facility] C-Reactive Protein <0.29 <=0.50 mg/dL LAB CHEMISTRY METHOD 09/13/2024 9:56 AM EDT [facility] Blood Venous blood specimen / Unknown Venipuncture / Unknown 09/13/2024 7:36 AM EDT 09/13/2024 8:50 AM EDT Jemal Grigsby MD LAB BLOOD ORDERABLES Final Resul t Performing Organization Address City/[facility]/ZIP Co de Phone Number [facility] [address] [place] [address], * (ABNORMAL) Comprehensive metabolic panel (09/13/2024 7:36 AM EDT) Sodium 139 133 - 145 mmol/L LAB CHEMISTRY METHOD 09/13/2024 11:33 AM EDT [facility] Potassium 4.3 3.5 - 5.5 mmol/L LAB CHEMISTRY METHOD 09/13/2024 11:33 AM [facility] Chloride 105 96 - 110 mmol/L LAB CHEMISTRY METHOD 09/13/2024 11:33 AM [facility] CO2 28 21 - 32 mmol/L LAB CHEMISTRY METHOD 09/13/2024 11:33 AM [facility] Anion Gap 6 3 - 11 LAB CHEMISTRY METHOD 09/13/2024 11:33 AM [facility] Glucose 110(H) 70 - 100 mg/dL LAB CHEMISTRY METHOD 09/13/2024 11:33 AM [facility] BUN 16 5 - 25 mg/dL LAB CHEMISTRY METHOD 09/13/2024 11:33 AM [facility] Creatinine 0.82 0.70 - 1.30 mg/dL LAB CHEMISTRY METHOD 09/13/2024 11:33 AM [facility] eGFR 97 >=60 mL/min/1. 73m2 LAB CHEMISTRY METHOD 09/13/2024 11:33 AM [facility] Comment:Calculation based on the Chronic Kidney Disease Epidemiology Collaboration (CKD-EPI) equation refit without adjustment for race. BUN/Creatinine Ratio 19.5 LAB CHEMISTRY METHOD 09/13/2024 11:33 AM [facility] Calcium 9.5 8.5 - 10.5 mg/dL LAB CHEMISTRY METHOD 09/13/2024 11:33 AM [facility] AST (SGOT) 15 10 - 42 unit/L LAB CHEMISTRY METHOD 09/13/2024 11:33 AM [facility] ALT (SGPT) 16 10 - 60 unit/L LAB CHEMISTRY METHOD 09/13/2024 11:33 AM [facility] Alkaline Phosphatase 93 42 - 121 unit/L LAB CHEMISTRY METHOD 09/13/2024 11:33 AM [facility] Total Protein 7.8 6.0 - 8.0 g/dL LAB CHEMISTRY METHOD 09/13/2024 11:33 AM EDT [facility] Albumin 3.8 3.2 - 5.0 g/dL LAB CHEMISTRY METHOD 09/13/2024 11:33 AM EDT [facility] Total Bilirubin 0.4 0.0 - 1.4 mg/dL LAB CHEMISTRY METHOD 09/13/2024 11:33 AM EDT [facility] Blood Venous blood specimen / Unknown Venipuncture / Unknown 09/13/2024 7:36 AM EDT 09/13/2024 8:50 AM EDT us Jemal Grigsby MD LAB BLOOD ORDERABLES Final Resul t [facility] [address] [place] [address], * (ABNORMAL) Complete blood count (09/13/2024 7:36 AM EDT) WBC 8.4 4.8 - 10.8 K/mcL LAB HEMETOLOGY METHOD 09/13/2024 9:22 AM [facility] RBC 5.10 4.50 - 5.50 M/mcL LAB HEMETOLOGY METHOD 09/13/2024 9:22 AM [facility] Hemoglobin 13.0(L) 13.5 - 17.5 g/dL LAB HEMETOLOGY METHOD 09/13/2024 9:22 AM [facility] Hematocrit 41.0(L) 42.0 - 54.0 % LAB HEMETOLOGY METHOD 09/13/2024 9:22 AM [facility] MCV 80.6 79.0 - 98.0 FL LAB HEMETOLOGY METHOD 09/13/2024 9:22 AM [facility] MCH 25.5(L) 27.0 - 32.0 pcg LAB HEMETOLOGY METHOD 09/13/2024 9:22 AM EDT [facility] MCHC 31.7(L) 32.0 - 37.0 g/dL LAB HEMETOLOGY METHOD 09/13/2024 9:22 AM EDT [facility] RDW 14.8 11.0 - 15.0 % LAB HEMETOLOGY METHOD 09/13/2024 9:22 AM EDT [facility] Platelets 331 130 - 400 K/mcL LAB HEMETOLOGY METHOD 09/13/2024 9:22 AM EDT [facility] MPV 11.3(H) 7.0 - 11.0 FL LAB HEMETOLOGY METHOD 09/13/2024 9:22 AM EDT [facility] NRBC 0.0 <1.0 % LAB HEMETOLOGY METHOD 09/13/2024 9:22 AM EDT [facility] NRBC Absolute 0.00 <0.10 K/mcL LAB HEMETOLOGY METHOD 09/13/2024 9:22 AM EDT [facility] Blood Venous blood specimen / Unknown Venipuncture / Unknown 09/13/2024 7:36 AM EDT 09/13/2024 8:50 AM EDT us Jemal Grigsby MD LAB BLOOD ORDERABLES Final Resul t [facility] [address] [place] [address], documented in this encounter Visit Diagnoses Diagnosis Metabolic encephalopathy Rhabdomyolysis Unspecified convulsions (CMS/HCC V24, CMS/HCC V28) documented in this encounter Care Teams Network Support Analyst Relationship Specialty Start Date End Date Yassine Rodriguez MD [address] [place] [address] [place] [address] PCP - General 02/16/24 documented as of this encounter
[2025-04-25 13:45] LABS: Folate 8.8 ng/mL (> or = 4.0); Prostate Specific Antigen 1.09 ng/mL (<0.05-4.0); Vitamin B12 240 pg/mL (200-900)
[2025-04-28 21:19] LABS: HCV Log PCR <1.18 NOT DETECTED Log IU/mL (NOT DETECTED); HepC Viral Load <15 NOT DETECTED IU/mL (NOT DETECTED)
== END 2025-04-25 10:58 | disposition home or self-care (01) ==
LOC: HO.LAB 10:57
PROVIDERS: PCP Internal Medicine; Visit Provider Internal Medicine
DX: Z00.00 Encounter for general adult medical examination without abnormal findings (principal); Z12.5 Encounter for screening for malignant neoplasm of prostate; B19.20 Unspecified viral hepatitis C without hepatic coma; E11.9 Type 2 diabetes mellitus without complications; N40.0 Benign prostatic hyperplasia without lower urinary tract symptoms; E55.9 Vitamin D deficiency, unspecified; E53.8 Deficiency of other specified B group vitamins; E78.00 Pure hypercholesterolemia, unspecified; D64.9 Anemia, unspecified
CPT/HCPCS: 36415; 80053; 80061; 82306; 82607; 82746; 83036; 84153; 84443; 85025; 87522

== ENCOUNTER 2025-05-01 12:02 | Outpatient (REF) | payer MEDICARE, MEDICAID, SELFPAY ==
[2025-05-01 12:35] LABS: Appearance Urine Cloudy; Glucose Urine UA Negative (Negative); PH 5.5 (5.0-9.0); Specific Gravity - Urine 1.015 (1.005-1.025); UMIC TRIGGER UACC YES
[2025-05-01 12:38] LABS: UACC Culture Trigger YES
[2025-05-01 13:18] LABS: Microalbum/Creatinine Ratio Ur 71.5 ug/mg cr (<30)
== END 2025-05-01 12:03 ==
LOC: HO.LNP 12:02
PROVIDERS: Visit Provider Internal Medicine
DX: E11.9 Type 2 diabetes mellitus without complications (principal); R30.0 Dysuria
CPT/HCPCS: 81001; 82043; 82570; 87086